=== PATIENT | male | born 1975 ===

== ENCOUNTER 2016-08-28 06:01 | Inpatient (IN) | payer MEDICAID ==
[2016-08-19 07:57] VITALS: BMI 31.3
--- NOTE | 2016-08-28 06:39 | CP.SDSHP ---
Same Day Surgery H & P - History Proposed Procedure: Left total ankle replacement Pre-Op Diagnosis: left ankle post traumatic arthritis - Allergies Allergies: Allergies No Known Allergies Allergy (Verified 06/26/15 17:58) - {Optional Preform as Required} Integument: WNL - Impression Impression: Pt was seen and examined in SDS. Pt NPO status was confirmed. All Pre-op testing and clearance was in the chart. Pt has exhausted all conservative treatment at this time and is opting for surgical intervention. Pt was explained procedure and post-operative course. All pt's questions were answered to satisfaction. No guarantees were made. Pt understands all risks, benefits and complications of procedure. Pt will follow-up with Dr. Liu Short Stay Discharge - Short Stay Discharge Admitting Diagnosis/Reason for Visit: M19.172 M25.572 Disposition: HOME/ ROUTINE Referrals: Yakelin Shea MD [Primary Care Provider] -
--- NOTE | 2016-08-28 06:41 | CP.PCM.PN ---
Subjective - Date & Time of Evaluation Date of Evaluation: 08/28/16 Time of Evaluation: 06:39 - Subjective Subjective: 41 y/o male seen in [facility] for pre operative evaluation of left ankle. Patient going to surgery this morning with Dr. Liu for left total ankle replacement. Patient states that he has not eaten or drank anything since 10pm last night. Paitent denies any acute events overnight. He denies n/f/v/d/c/sob. Pmhx: anxiety,depression, HIV, HTN, epilepsy pshx: left ankle sx, appendectomy SH: denies All: NKDA Objective - Vital Signs/Intake and Output Vital Signs (last 24 hours): Temp Pulse Resp BP Pulse Ox 97.8 F 74 18 110/70 08/19/16 10:32 08/19/16 10:32 08/19/16 10:32 08/19/16 10:32 - Constitutional Appears: Well, Non-toxic, No Acute Distress - Neurological Exam Neurological Exam: Alert, Awake, Oriented x3 - Psychiatric Exam Psychiatric exam: Normal Affect, Normal Mood Assessment and Plan - Assessment and Plan (Free Text) Assessment: 41 y/o male seen at bedside in [facility] going to OR for left total ankle replacement by Dr. Liu Plan: Pt was seen and examined in [facility] Pt NPO status was confirmed All Pre-op testing and clearance was in the chart Pt has exhausted all conservative treatment at this time and is opting for surgical intervention Pt was explained procedure and post-operative course All pt's questions were answered to satisfaction No guarantees were made Pt understands all risks, benefits and complications of procedure Pt will follow-up with Dr. Liu in clinic
[2016-08-28] MEDS ORDERED: ceFAZolin 1 GM in Sodium Chloride 0.9% 100 ML IVPB ONE (07:00)
[2016-08-28] MEDS ORDERED: Bupivacaine 0.5% Inj(30mL) IJ ONE (07:00)
[2016-08-28] MEDS ORDERED: Lactated Ringer's 1,000 ML IV ONE ×6 (07:03→13:00)
[2016-08-28] MEDS ORDERED: Lidocaine 1% Inj (20ml) ONE ×2 (07:15→20:05)
[2016-08-28] MEDS ORDERED: MethylPREDNISolone Depo 40 mg/ml Inj ONE (07:15)
[2016-08-28] MEDS ORDERED: Bacitracin Ointment 30 GM TUBE ONE (07:15)
[2016-08-28] MEDS ORDERED: Absorbable Gelatin Sponge Size 100 ONE (07:16)
[2016-08-28] MEDS ORDERED: Thrombin Topical 5,000 IU Spray Kit ONE (07:16)
[2016-08-28] MEDS ORDERED: Propofol 10 mg/ml Inj (20 ML) ONE (07:26)
[2016-08-28] MEDS ORDERED: Rocuronium 10 mg/ml (5 ml) ONE (07:27)
[2016-08-28] MEDS ORDERED: Midazolam 2 MG/2 ML VIAL ONE (07:27)
[2016-08-28] MEDS ORDERED: Succinylcholine 200 mg/10 ml Inj IV ONE (07:27)
[2016-08-28] MEDS ORDERED: Neostigmine Methylsulfate 3mg/3ml Syringe IV ONE (07:27)
[2016-08-28] MEDS ORDERED: Sevoflurane - Inhalation Anesthetic Liq (250 ml) ONE (07:31)
[2016-08-28] MEDS ORDERED: Bupivacaine HCl 0.25% PF (30 ml) Inj ONE (11:50)
[2016-08-28] MEDS ORDERED: Bupivacaine HCl 0.5% PF (30 ml) Inj ONE (12:06)
[2016-08-28] MEDS ORDERED: Bupivacaine 0.25% Inj(30mL) IJ ONE (12:20)
[2016-08-28] MEDS: HYDROmorphone 0.5 mg/0.5 ml ISec IVP PRN ×5 (13:10→14:05)
[2016-08-28] MEDS ORDERED: HYDROmorphone 0.5 mg/0.5 ml ISec ONE ×2 (13:19→13:35)
[2016-08-28] MEDS ORDERED: Oxycodone/Acetaminophen 5/325 mg Tab PO PRN (13:33)
[2016-08-28] MEDS ORDERED: DiphenhydrAMINE 50 mg/ml Inj IVP PRN (13:52)
--- NOTE | 2016-08-28 14:19 | PCM.SURG1 ---
Surgeon's Initial Post Op Note - Surgeon's Notes Surgeon: Dr. Liu Enterprise Infrastructure Architect: Dr. Ariza, Dr. Clay, Dr. Chand Type of Anesthesia: General Endo Anesthesia Administered By: Dr. Ng Pre-Operative Diagnosis: left ankle post traumatic arthritis Operative Findings: see dictation Post-Operative Diagnosis: same Operation Performed: left total ankle arthroplasty Specimen/Specimens Removed: bone and soft tissue Estimated Blood Loss: EBL {In ML}: 50 Blood Products Given: N/A Drains Used: Kj Alves Post-Op Condition: Good Date of Surgery/Procedure: 08/28/16 Time of Surgery/Procedure: 08:30
--- NOTE | 2016-08-28 15:12 | RAD ---
PROCEDURE: Left Ankle Radiographs. HISTORY: s/p left TAR COMPARISON: Comparison is made to the previous study dated 12/04/2015 FINDINGS: BONES: Patient status post left ankle arthroplasty. Hardware are seen at the distal left tibia and at the talar dome. Again seen is cortical irregularity at the distal left fibula. JOINTS: Normal. No osteoarthritis. Ankle mortise maintained. Talar dome intact SOFT TISSUES: Normal. OTHER FINDINGS: None. IMPRESSION: Status post left ankle arthroplasty.
[2016-08-28 15:30] LABS: HEMATOCRIT 42.1 % (35.0-51.0)
--- NOTE | 2016-08-28 17:02 | RAD ---
PROCEDURE: Fluoroscopy up to 1 hr. HISTORY: TOTAL LEFT ANKLE REPLACEMENT COMPARISON: None. TECHNIQUE: Standard protocol for this study/examination. FINDINGS: Submitted images from the current procedure: 16. IMPRESSION: Total fluoroscopic time (continuous mode) utilized during the procedure: 236.9 seconds.
[2016-08-28] MEDS: ceFAZolin 1 GM in Sodium Chloride 0.9% 100 ML IVPB SCH (19:37)
[2016-08-28] MEDS ORDERED: Ropivacaine 0.5% 30ML IV ONE (20:05)
--- NOTE | 2016-08-28 21:03 | PCM.ANESB2 ---
Popliteal Nerve Block - Popliteal Nerve Block Date of Procedure: 08/28/16 Anesthesiologist: Jorge Pre-Procedure Diagnosis: s/p left ankle replacement Post-Procedure Diagnosis: same Procedure Performed: Popliteal Nerve Block Left - Procedure Popliteal Nerve Block: This procedure was explained to the patient that it is for post-operative pain management. Consent was obtained after a thorough discussion with the patient regarding the benefits and possible complications of local anesthetic block of the sciatic nerve at the popliteal level. The patient was brought to the operating room and standard monitors are applied. Time-out was held with the circulating nurse to confirm the correct surgery and the appropriate block. After applying oxygen by nasal cannula and administering IV Sedation, patient's operative leg was gently raised and supported and the groove in between the biceps femoris and vastus lateralis muscles was carefully palpated. The skin approximately 8cm above the popliteal crease was then marked. The ultrasound transducer was then applied to the posterior thigh approximately 8cm above the popliteal crease in the transverse plane and the sciatic nerve before its division was visualized lateral to the popliteal artery and in between the bicep femoris and semimembranosus/semitendinosus muscles. After identification, the lateral portion of the thigh was prepped with Betadine solution three times and Lidocaine 1% was injected subcutaneously for topical anesthesia. At this point, a # 21 gauge Stimuplex insulated 4 inch needle was inserted into pre-marked area and advanced in a perpendicular direction. The needle was inserted above the ultrasound transducer in-plane towards the sciatic nerve in a [id number] direction. Needle advancement was performed carefully under direct ultrasound visualization. Nerve stimulator was used and dorsiflexion of the _left____ foot was elicited at a current of __0.3___ MA. After repeated negative aspiration, __5___cc of __0.5___ % ___Ropivacaine was injected and this was flowed with ___15___ cc of __0.5____% __Ropivacaine ___. Under ultrasound guidance the local anesthetics were observed tenting the epidural sheath and surrounding the roots of the sciatic nerve. The needle was removed intact and sterile dressing was applied. The patient tolerated the popliteal nerve block well with stable vital signs and was subsequently prepared for the surgery.
--- NOTE | 2016-08-28 21:08 | CP.PCM.CON ---
History of Present Illness - History of Present Illness History of Present Illness: Called by floor. Pt in extreme pain after total left ankle replacement. Pt had been offered popliteal block after surgery but had refused. Now in pain despite Dilaudid REAR ADMIRAL. Consulted Dr Beal, pain management. Pt is known to Dr Beal. Pt states he is on oxycodone 30mg PO TID. Dr Beal recommended adding Dilaudid 2mg IVP q3 prn pain in addition to REAR ADMIRAL. Also discussed with pt through slab off mill tender that nerve block would be best option. Pt agreed and consented. See Popliteal Block note. Pt noticeably better after block. Past Patient History - Infectious Disease Hx of Infectious Diseases: None - Past Medical History & Family History Past Medical History?: Yes - Past Social History Smoking Status: Never Smoked - CARDIAC Hx Cardiac Disorders: Yes Hx Congestive Heart Failure: Yes Hx Hypertension: Yes - PULMONARY Hx Respiratory Disorders: Yes Hx Asthma: Yes - NEUROLOGICAL Hx Neurological Disorder: Yes Hx Dementia: Yes Hx Dizziness: Yes Hx Seizures: Yes (EPILEPSY) - HEENT Hx HEENT Problems: No - RENAL Hx Chronic Kidney Disease: No - ENDOCRINE/METABOLIC Hx Endocrine Disorders: No - HEMATOLOGICAL/ONCOLOGICAL Hx Blood Disorders: Yes Hx AIDS: Yes Hx Human Immunodeficiency Virus (HIV): Yes - INTEGUMENTARY Hx Dermatological Problems: No - MUSCULOSKELETAL/RHEUMATOLOGICAL Hx Musculoskeletal Disorders: Yes Hx Arthritis: Yes Hx Back Pain: Yes Hx Falls: Yes Hx Fractures: Yes Hx Osteoporosis: Yes Hx Rhabdomyolysis: Yes Hx Unsteady Gait: Yes Other/Comment: LIMIT JOINT MOTION - GASTROINTESTINAL Hx Gastrointestinal Disorders: No Hx Gastroesophageal Reflux: Yes - GENITOURINARY/GYNECOLOGICAL Hx Genitourinary Disorders: No - PSYCHIATRIC Hx Psychophysiologic Disorder: Yes Hx Anxiety: Yes Hx Bipolar Disorder: Yes Hx Depression: Yes Hx Panic Symptoms: Yes Hx Schizophrenia: Yes Hx Substance Use: No Other/Comment: OVERDOSE - SURGICAL HISTORY Hx Surgeries: Yes Hx Appendectomy: Yes Hx Musculoskeletal Surgery: Yes (BUNIONECTOMY LEFT X3) Hx Orthopedic Surgery: Yes (LEFT LEG) Other/Comment: left foot with metal implant - ANESTHESIA Hx Anesthesia: Yes Hx Anesthesia Reactions: No Hx Malignant Hyperthermia: No Has any member of the family had a problem w/ anesthesia?: No Meds Allergies/Adverse Reactions: Allergies Allergy/AdvReac Type Severity Reaction Status Date / Time No Known Allergies Allergy Verified 06/26/15 17:58 - Medications Medications: Current Medications Acetaminophen (Tylenol 325mg Tab) 650 mg PO Q4 PRN PRN Reason: Pain, Mild (1-3) or temp>101.5 Enoxaparin Sodium (Lovenox) 40 mg SC DAILY [facility] PRN Reason: Protocol Home Med (Emtricita/Rilpivir/Tenofovir) 1 tab PO DAILY [facility] Hydrochlorothiazide (Microzide) 12.5 mg PO DAILY [facility] Hydromorphone HCl (Dilaudid) 2 mg IVP Q4 PRN PRN Reason: severe breakthrough pain Last Admin: 08/28/16 20:21 Dose: 2 mg Hydromorphone HCl (Dilaudid) 0.5 mg IVP Q5MIN PRN PRN Reason: Pain, severe (8-10) Last Admin: 08/28/16 13:30 Dose: 0.5 mg Hydromorphone HCl (Dilaudid) 0.5 mg IVP Q15MIN PRN PRN Reason: Pain, moderate (4-7) Last Admin: 08/28/16 14:55 Dose: 0.5 mg Hydromorphone HCl (Dilaudid 0.2 Mg/Ml Grinder Mill Operator) 6 mg IV Q6 [facility] PRN Reason: Protocol Last Admin: 08/28/16 14:45 Dose: 0.3 mg Hydromorphone HCl (Dilaudid) 2 mg IVP Q3 PRN PRN Reason: Pain, severe (8-10) Stop: 08/31/16 23:59 Sodium Chloride (Sodium Chloride 0.9%) 500 mls @ 130 mls/hr IV .Q3H51M [facility] Cefazolin Sodium 1 gm/ Sodium (Chloride) 100 mls @ 100 mls/hr IVPB Q8 [facility] Last Admin: 08/28/16 19:37 Dose: 100 mls/hr Levetiracetam (Keppra) 1,000 mg PO BID [facility] Mirtazapine (Remeron) 30 mg PO HS [facility] Oxycodone/Acetaminophen (Percocet 5/325 Mg Tab) 1 tab PO Q4 PRN PRN Reason: Pain, moderate (4-7) Stop: 08/31/16 13:34 Oxycodone/Acetaminophen (Percocet 5/325 Mg Tab) 2 tab PO Q4 PRN PRN Reason: Pain, severe (8-10) Stop: 08/31/16 13:34 Pregabalin (Lyrica) 50 mg PO DAILY [facility] Risperidone (Risperdal Tab) 2 mg PO HS [facility] Fluticasone/Salmeterol (Advair Diskus 250/50) 1 puff IH Q12H [facility] Senna/Docusate Sodium (Senokot S 50 Mg-8.6 Mg) 1 tab PO HS [facility] Valsartan (Diovan) 160 mg PO DAILY [facility] Results - Vital Signs Recent Vital Signs: Last Vital Signs Temp 98.2 F 08/28/16 19:00 Pulse 100 H 08/28/16 19:00 Resp 18 08/28/16 19:00 BP 130/70 08/28/16 19:00 Pulse Ox 98 08/28/16 19:00 - Labs Result Diagrams: 08/28/16 15:15 Labs: Laboratory Results - last 24 hr 08/28/16 15:15 Hgb 13.6 Hct 42.1
[2016-08-28] MEDS ORDERED: Docusate-Senna 50 mg-8.6 mg Tab PO SCH (22:00)
[2016-08-28] MEDS: Fluticasone-Salmeterol 250-50mcg Diskus IH SCH (22:21)
[2016-08-28] MEDS: Sodium Chloride 0.9% 500 ML IV SCH (22:25)
--- NOTE | 2016-08-28 23:19 | CP.PCM.HP ---
History of Present Illness - History of Present Illness History of Present Illness: CC/HPI: Pt. is a 41 y.o. male with history of chronic left foot & ankle pain s/ p Left ankle arthroplasty post-op day#0. Surgery performed by Podiatry Dr. Liu. Pt. seen and evaluated on med-surge unit complaining of extreme pain in his left leg despite being on a Morphine AIRCRAFT DISPATCHER pump. Pt. also reports has pain in his abdomen but denies any nausea, vomiting, fever, or chills. Pt. also states does not remember the last time he had a bowel movement and just wants this pain to go away. Pt. was offered a popliteal block while in the post- anesthesia care unit. ROS: Pt. denies any headache, chest pain, nausea, vomiting, back pain, or palpitations. PMHx: HTN, HIV, Poly-substance abuse, Seizure disorder, Mood disorder, Asthma PSHx: Multiple left foot and ankle surgeries, Appendectomy Social: At this time denies TOB, ETOH, or Drug use Allergies: NKDA Home Meds: See Med List PMD: Dr. Yakelin Shea Podiatry: Dr. Liu RX: [facility] Present on Admission - Present on Admission Any Indicators Present on Admission: No History of DVT/PE: No History of Uncontrolled Diabetes: No Urinary Catheter: No Decubitus Ulcer Present: No Review of Systems - Review of Systems Review of Systems: See HPI Past Patient History - Infectious Disease Hx of Infectious Diseases: None - Past Medical History & Family History Past Medical History?: Yes - Past Social History Smoking Status: Never Smoked - CARDIAC Hx Cardiac Disorders: Yes Hx Congestive Heart Failure: Yes Hx Hypertension: Yes - PULMONARY Hx Respiratory Disorders: Yes Hx Asthma: Yes - NEUROLOGICAL Hx Neurological Disorder: Yes Hx Dementia: Yes Hx Dizziness: Yes Hx Seizures: Yes (EPILEPSY) - HEENT Hx HEENT Problems: No - RENAL Hx Chronic Kidney Disease: No - ENDOCRINE/METABOLIC Hx Endocrine Disorders: No - HEMATOLOGICAL/ONCOLOGICAL Hx Blood Disorders: Yes Hx AIDS: Yes Hx Human Immunodeficiency Virus (HIV): Yes - INTEGUMENTARY Hx Dermatological Problems: No - MUSCULOSKELETAL/RHEUMATOLOGICAL Hx Musculoskeletal Disorders: Yes Hx Arthritis: Yes Hx Back Pain: Yes Hx Falls: Yes Hx Fractures: Yes Hx Osteoporosis: Yes Hx Rhabdomyolysis: Yes Hx Unsteady Gait: Yes Other/Comment: LIMIT JOINT MOTION - GASTROINTESTINAL Hx Gastrointestinal Disorders: No Hx Gastroesophageal Reflux: Yes - GENITOURINARY/GYNECOLOGICAL Hx Genitourinary Disorders: No - PSYCHIATRIC Hx Psychophysiologic Disorder: Yes Hx Anxiety: Yes Hx Bipolar Disorder: Yes Hx Depression: Yes Hx Panic Symptoms: Yes Hx Schizophrenia: Yes Hx Substance Use: No Other/Comment: OVERDOSE - SURGICAL HISTORY Hx Surgeries: Yes Hx Appendectomy: Yes Hx Musculoskeletal Surgery: Yes (BUNIONECTOMY LEFT X3) Hx Orthopedic Surgery: Yes (LEFT LEG) Other/Comment: left foot with metal implant - ANESTHESIA Hx Anesthesia: Yes Hx Anesthesia Reactions: No Hx Malignant Hyperthermia: No Has any member of the family had a problem w/ anesthesia?: No Meds Allergies/Adverse Reactions: Allergies Allergy/AdvReac Type Severity Reaction Status Date / Time No Known Allergies Allergy Verified 06/26/15 17:58 Physical Exam - Constitutional Appears: In Acute Distress Additional comments: Moaning and Groaning stating he is in severe pain and needs something to be done - Head Exam Head Exam: ATRAUMATIC, NORMOCEPHALIC - Eye Exam Eye Exam: Normal appearance Pupil Exam: PERRL - Respiratory Exam Respiratory Exam: Clear to Auscultation Bilateral, NORMAL BREATHING PATTERN - Cardiovascular Exam Cardiovascular Exam: Tachycardia, REGULAR RHYTHM. absent: Systolic Murmur - GI/Abdominal Exam GI & Abdominal Exam: Hyperactive Bowel Sounds, Soft. absent: Tenderness - Extremities Exam Additional comments: Left ankle Cast in place, Kj Prat drain in place with sanguinous drainage noted, Pt. able to move his toes - Neurological Exam Neurological exam: Alert, Oriented x3 Results - Vital Signs Recent Vital Signs: Last Vital Signs Temp 98.2 F 08/28/16 19:00 Pulse 100 H 08/28/16 19:00 Resp 18 08/28/16 19:00 BP 130/70 08/28/16 19:00 Pulse Ox 98 08/28/16 19:00 - Labs Result Diagrams: 08/28/16 15:15 Labs: Laboratory Results - last 24 hr 08/28/16 15:15 Hgb 13.6 Hct 42.1 Assessment & Plan - Assessment and Plan (Free Text) Assessment: 41 y.o. male with history of poly-substance abuse, HIV, and chronic left foot ankle pain s/p Left ankle total replacement POD#0 with intractable pain Left ankle total replacement POD#0 1- Pain management consulted Anesthesia Dr. Tye Patel 2- Pt. consented for Left lower limb popliteal block with Dr. Patel, procedure completed without complication + Dilaudid 2mg IVP Q3 PRN severe pain + Morphine 4mg IVP Q4 PRN for Moderate pain 3- Wean patient off patient controlled anesthesia and transition to PO Percocet 5/325 1tab for moderate pain & Percocet 5/325 2tab for severe pain 4- Ancef 1gram Q8 5- Physical therapy evaluate and treat 6- Post-OP CBC and BMP in the a.m. Constipation of unclear etiology most likely secondary to opioids 1- Flat plat abdomen ordered consistent with severe constipation- official reading pending 2- Senokot 2 tabs QHS 3- Simethicone 80mg PO TID PRN 4- Consider Fleet enema HTN 1- Resume Valsartan 160mg Daily 2- Resume HCTHZ 12.5mg Daily Asthma 1- Advair 1 puff q12 Seizure disorder 1- Resume Keppra 1000mg Q12 HIV 1- Resume Complera 200-25-300 Daily Mood disorder 1- Resume Risperdal 2mg qhs 2- Resume Remeron 30mg qhs DVT prophylaxis 1- SCD 2- Lovenox 40mg sc daily Diet 1- Regular
[2016-08-29] MEDS: Simethicone 80 mg Chewtab PO PRN (01:24)
[2016-08-29] MEDS: ceFAZolin 1 GM in Sodium Chloride 0.9% 100 ML IVPB SCH ×3 (01:58→16:41)
[2016-08-29] MEDS: Sodium Chloride 0.9% 500 ML IV SCH ×2 (04:58→06:50)
[2016-08-29] MEDS: Fluticasone-Salmeterol 250-50mcg Diskus IH SCH ×2 (06:49→18:35)
[2016-08-29] MEDS ORDERED: Patient's Own Med (Valsartan/Hydrochlorothiazide [Valsartan-Hctz 160-12.5 Mg Tab] 1 TAB) PO SCH (09:00)
--- NOTE | 2016-08-29 09:46 | OP ---
PROCEDURE DATE: 08/28/2016 SURGEON: Denys Liu DPM. BEER STILL RUNNER COMPOUNDER: 1. Dr. Rock Ariza, ALEC, PGY3. 2. Dr. Jenniffer Clay, ALEC, PGY3. 3. Dr. Yajaira Chand, ALEC, PGY3. TELETRAY OPERATOR: Dr. Hernandez MD. PREOPERATIVE DIAGNOSIS: Left ankle end-stage posttraumatic arthritis. POSTOPERATIVE DIAGNOSIS: Left ankle end-stage posttraumatic arthritis. PROCEDURE: Left ankle total ankle arthroplasty with Snapstream Infinity total ankle joint implant. INDICATIONS: This is a 41-year-old male with the aforementioned diagnosis. The patient at this time has exhausted conservative treatment options and he now opts and requests for surgical intervention. The patient signed the consent form after careful explanation of all risks, benefits, complications, and alternatives to the surgical procedure. There were no guarantees that were made, given or implied. The patient is a well-known patient of the podiatry clinic and he has been thoroughly educated on the risks, benefits and alternatives including not performing surgery. The patient has been thoroughly explained the risks, benefits and complications of both total ankle arthroplasty and ankle arthrodesis, again including the option of not performing surgery. The patient at this time has opted for a total ankle arthroplasty and has been well aware via thorough and detailed explanation that total ankle arthroplasty is a procedure that will require revisional surgery at least in the form of poly insert or poly replacement surgery. Again, the patient was read the consent form via a ticket printer and tagger. The patient signed the consent form with a thorough understanding of the above mentioned. PREPARATION: The patient was brought into the operating room, placed on the operating room table in the supine position. A well-padded pneumatic thigh tourniquet was placed on the patient's left thigh at the upper one-third thigh level. After induction of general anesthesia, the left foot, ankle and lower leg were then prepped and draped in the usual sterile manner. A timeout was performed. An Esmarch bandage was utilized to exsanguinate the left foot, ankle and lower leg. The pneumatic thigh tourniquet was then inflated to 350 mmHg and then the procedure began. DESCRIPTION OF PROCEDURE: Our attention now directed to the anterior aspect of the patient's left ankle where the tendons of the tibialis anterior, extensor hallucis longus and extensor digitorum longus were mapped out with the surgical marking pen. Next, an approximately 20 cm incision was made in between the extensor hallucis longus and extensor digitorum longus starting approximately 10 cm superior to the ankle joint and ending distally at approximately the level of the talonavicular joint. The incision was deepened through the subcutaneous tissue utilizing a combination of shunt and blunt dissection. Care was taken to identify and retract all vital neurovascular structures and cauterize and/or ligate all bleeders as deemed necessary. The incision was deepened down through the subcutaneous layers down to the level of the periosteum of the anterior tibia and anterior and dorsal talus. Once that level was encountered, a sharp #15 blade was utilized to make a periosteal incision. Next, utilizing a Parry elevator, the periosteal tissues were then carefully free from their osseous attachments, both medially and laterally revealing the ankle joint and adjacent osseous structures into the operative field. During the course of dissection, various loose osteophytes which were previously identified in appendix 3 of the patient's surgical alignment report provided by [facility] were encountered and removed. During the course of our dissection, careful attention was paid to the dorsal talar neck which was previously identified in appendix 2 of the surgical alignment report as an area of low bone quality. This area was inspected and inspection revealed it would not interfere with the surgical instrumentation for this procedure. During the course of our soft tissue dissection, 2 metallic markers which were cut from a 2.4 mm Steinmann pin were placed vertically within the Prophecy tibial alignment guide. After adequate osseous exposure of the ankle joint and the adjacent osseous structures, the Prophecy tibial alignment guide was placed in the appropriate position over the anterior aspect of the distal tibia. Once the guide was in its proper location, a 2.4 mm Steinmann pin was inserted into the medial proximal hole of the guide to serve as temporary fixation. Next, an additional Steinmann pin was now placed through the vertical hole in the center of the handle of the guide which serves as the coronal alignment cue. Next, using intraoperative fluoroscopy, an AP fluoro image was taken to confirm that the tibial guide was in the correct orientation and in proper alignment with the long axis of the tibia. Next, the remaining 3 anterior to posterior holes within the tibial alignment guide were now filled with 2.4 mm Steinmann pins. All anterior to posterior pins through this guide were driven bicortical through the tibia. Next, the tibial alignment guide was gently slid up and off the Steinmann pins and placed on the back table. The now four bicortical pins within the distal tibia remained in place. Next, the size #5 coronal sizing guide was now placed and slid down over the distal 2 tibial pins. The coronal sizing guide was brought flush to the surface of the tibia. Next, the Herot[employer] Conversion instrument was now slid over the 2 proximal tibial pins and into the dovetail of the coronal sizing guide. They were then locked in place with the hex screwdriver. Next, with the use of the fluoroscope, an AP image was taken to fluoroscopically verify the size and orientation of the coronal sizing guide. The correct "[id number]" feature was identified within the coronal sizing guide on the AP fluoroscopic image. Next, lateral fluoroscopic images were taken to confirm proper orientation of the coronal guide in the lateral view. Next, the tibial corner drill was now brought into the operative field and through the coronal sizing guide, the superior medial and superior lateral corners of the tibia were bicortically drilled. Next, the drill and coronal sizing guide were removed and a size #5 tibial resection guide was slid over the distal Steinmann pins which were in the tibia. An additional Steinmann pin was now inserted into the medial divergent pin hole within the tibial resection guide. Next, utilizing the pin cutter, the pins were trimmed flush to the resection guide, but still leaving enough room for the pins to later be removed with either the jewel cupping machine operator or the wire armored car guard and driver. Next, the appropriate size saw blade was now brought into the operative field to make the tibial resection. The resections were now performed at that time to the proximal, medial and lateral slots of the tibial resection guide. It is of note that the talar cuts were not made at this time. Next, the divergent Steinmann pin was removed and the resection guide and the distal tibial Steinmann pins were removed. Next, at an approximately 60 degree angle, an osteotome was now utilized to cut downwards towards the talus through the resected piece of the bone to remove the anterior section of the resected tibia. We removed as much of the resected portion of the tibia as possible at this time without violating the medial and lateral gutters. The posterior resected portion of the tibia will be removed at a later time. The surgical field was now irrigated with a copious amount of normal sterile saline solution. Next, the foot was now placed into slight plantarflexion in order to achieve maximum exposure of the talar dome. The articular surface of the talar dome was now inspected and noted to be thin, friable and denuded. In order to achieve proper seating of the talus alignment guide, the articular cartilage from the anterior aspect of the talar dome was removed with a curette. Next, first while using the provided bone models as a tactile and visual confirmation, the talus alignment guide was then placed into the appropriate position on the superior and anterior surface of the talus. Position was then confirmed via review of the surgical alignment report and with the use of the provided bone models. Next, while holding the talus alignment guide firmly in place, one 2.4 mm Steinmann pin was driven through the medial hole on the top surface of the guide into the dome of the talus to serve as temporary fixation. Next, 2 additional pins were now installed from anterior to posterior through the talus alignment guide into the talar dome. The previously placed pin on the top of the guide was then removed. With the pins securely held in place, the talus alignment guide was carefully slid up and off the pins, leaving the pins in place. Next, position was now confirmed with the lateral view with the fluoroscope. Next, a size #4 Infinity talus resection guide was now appropriately placed over the 2 talar pins and slid down flush to the anterior and dorsal surface of the talar dome. Two additional 2.4 mm Steinmann pins were now inserted into the medial and then the lateral gutter to serve as protection for the malleoli. The pin cutter was now used to cut the Steinmann pins close and near flush to the surface of the Infinity resection guide. While using the appropriate size saw blade, the talar resection was now performed through the distal slot of the Infinity resection guide. After the resection was completed, the guide was removed and a small osteotome was now utilized to complete any non-resected portions from the resection of the talus. Next, at this time, the entire ankle joint and surgical field were irrigated with a copious amount of normal sterile saline solution. While utilizing a combination of the corner chisel, the bone removal screw, the ratchet handle and the posterior capsule release tool, any remaining resected pieces of bone within the now resected ankle joint were appropriately removed and sent as a pathologic specimen. It is of note that, while utilizing the corner chisel, the chisel was not utilized beyond the #5 laser lesli printed on the chisel. Next, the saw was now utilized to remove any excess pieces of bone while paying careful attention to follow any previously made cut lines within the bone. Next, at this time, the tourniquet had approached 120 minutes. A saline-soaked lap pad was now placed within the surgical field and the surgical field was then gently wrapped with a sterile Sharif wrap. The pneumatic thigh tourniquet was now deflated at 120 minutes. The tourniquet was deflated for a total of 15 minutes. Next, after 15 minutes of tourniquet deflation, the Esmarch bandage was utilized to gently exsanguinate the left foot , ankle and lower leg and then the tourniquet was now reinflated to 350 mmHg. Next, the #5 tibial tray trial was now placed over the 2 remaining tibial pins and inserted into the resected joint space. The padded lamina tube knitter was now utilized in order to seat the tibial tray trial flush to the bone and then it was fully seated against the anterior cortex of the distal tibia. Next, with the use of a lateral fluoroscopic image, sizing for the tibial component was completed and a #5 standard length tibial component was measured. Next, with the tibial tray trial piece firmly held in place, the Steinmann pins were cut flush to the surface of the tibial tray trial. Next, the posterior tibial peg broach was now inserted into the posterior opening of the tibial tray trial piece and malleted flush to the built-in stop. This broach was then left in place. The same was then repeated with the anterior tibial peg broach. The 2 anterior holes were prepared through the trial. After all 3 holes were broached , the broaches were removed and the tibial tray trial piece was left in place. Next, a #4 talar dome trial piece was now inserted into the appropriate position over the talar dome and the appropriate size poly insert trial was inserted into the tibial tray trial. Sizing and positioning of the trial pieces was now confirmed with an AP and lateral image of the ankle joint. Once the optimal position was attained, two 2.4 mm Steinmann pins were now placed through the talar dome trial piece to temporarily hold it in place. Next, all 3 trial pieces were now removed from the surgical field and placed on the back table. Next, the talar resection guide base was now placed appropriately over the talar Steinmann pins. Next, 2 temporary fixation screws were now placed in the posterior medial and posterior lateral aspects of the talar resection guide. These fixation screws were put in initially under power and then finished with the T-handle pin armored car guard and driver. Next, the saw blade was then utilized to make the posterior talar chamfer resection through the slot of the talar resection guide base. After that was completed, the 2 anterior pins within the talus were then removed. One of those pins was now utilized and placed through the anterior pin hole in the guide base to serve as additional temporary fixation. This pin was then cut flush to the surface of the guide base. Next, the anterior talar army helicopter pilot guide was now installed facing down onto the anterior face of the talar resection guide. Next, utilizing the appropriately sized talar reamer, a plunge cut was created through all 4 holes of the army helicopter pilot guide. It is of note that the reamer has a built-in stop which avoided over reaming. Next, the anterior talar army helicopter pilot guide was removed and then replaced with the anterior talar finish guide. The talar reamer was now utilized to perform the finishing cuts for the anterior talar cuts by sliding the reamer from side to side within the finishing guide. Special attention was paid to ensure that the shoulder of the reamer was flush against the guide during each reaming step. Next, the finishing guide was then removed and the army helicopter pilot guide was now brought back into the operative field, rotated 180 degrees and reinstalled back into the talar resection guide base. Reaming was then repeated in a similar fashion. First, the 4 plunge holes were created through the 4 holes of the army helicopter pilot guide. The army helicopter pilot guide was then replaced with the finishing guide in the same rotated orientation and the reaming was completed by sliding the reamer from side to side within the finishing guide. Next, any guides and fixation pins were now removed from the surgical field. Next, the surgical field including the entire resected ankle joint was now thoroughly irrigated with 3 L of saline which contained gentamicin. Irrigation was performed with the pulse lavage system. Next, the tibial tray trial was placed back over the distal tibial pins. Next, the talar peg drill guide was now placed into the joint space and over the resected talus. The appropriate size poly insert trial was then replaced as well back in the surgical field. Next, the foot was then slightly plantarflexed and a 2.4 mm Steinmann pin was now placed through the talar peg drill guide to temporarily hold it in place. Next, after position was then confirmed visually and with fluoroscopy, the 4 mm anterior peg drill was now utilized to drill a hole through the medial and lateral openings of talar dome trial. Next, any remaining Steinmann pins in the talus and tibia were removed and all the trial guides were removed as well. Meanwhile, on the back table, bone cement was being prepared. An Infinity size 5 tibial tray was now sterilely passed onto the operative field and installed onto the tibial tray impaction insert device. Bone cement was now applied to the superior surface of the tibial tray component. Next, the insertion handle was now threaded into the tibial tray impaction insert and then the tibial tray component was installed into the distal tibia, ensuring that all 3 pegs of the components were aligned with the previously prepared and broached holes within the tibia. Next, to complete the seating of tibial tray, first the straight and then the offset tibial tray impacter were now utilized within both impaction notches located within the tibial tray impaction insert. Positioning and seating were confirmed with the use of Intraoperative fluoroscopy. Special attention was paid to ensure that the anterior surface of the tibial tray was in contact with the anterior tibial cortex. Next, the impaction insert for the tibial tray was removed and the tibial tray protector was then installed. Next , a size #4 Infinity talus implant was now sterilely passed onto the operative field. Bone cement was now applied to the undersurface of the talar implant. The talar implant was then carefully brought over to the operative field and inserted onto the talar dome with careful attention being paid to assure that the talar pegs aligned with the drilled holes within the talus. Next, the tibial tray protector was removed and the talar dome impactor was aligned with the tip of the sulcus of the talar dome. Now, with the ankle held in plantarflexion, the talar dome impactor was struck in order to complete the seating of the talar dome component. Next, fluoroscopic imaging was utilized to confirm appropriate seating of the tibia and the talar component. When position was deemed satisfactory, the poly rag production worker and poly insert guide rail were now appropriately assembled and the poly insert implant was now slid onto the poly insert guide rail. Next, prior to poly insert, the surgical field was irrigated with a copious amount of normal sterile saline solution. Next, the poly insert assembly was now slid over the attachment screws which were previously installed on the tibial tray. Two attachment nuts were now threaded over the end of each attachment screw to tightly secure the poly rag production worker in place. Next, while utilizing careful and fluid motion, the plunger was unlocked and engaged the poly insert implant. The poly insert implant was now implanted between the tibial and the talar components. In order to achieve final seating of the poly, the plunger was turned clockwise to further advance poly into the tibial tray. Once the plunger reached the maximum depth, the talar attachment nuts were unthreaded and the poly insert housing and attachment screws were removed from the tibial tray. The surgical site was irrigated with irrisept solution according to product guidelines. After that was completed, the surgical site was again irrigated with a copious amount of normal sterile saline solution. Next, a sterile Kj-Alves drain was now brought into the operative field. A small approximately 0.5 cm incision was made at the level of the anterior medial ankle in order to serve as an exit point for the drain. The Kj-Alves drain was now appropriately inserted subperiosteal within the surgical field. Next, the periosteal and subcutaneous tissue layers were now approximated with #2-0 Vicryl suture. Subcutaneous and retinacular tissues were now reapproximated with #3-0 Vicryl suture. Careful attention was paid again to avoid any vital neurovascular structures and cauterize any bleeders as necessary. Next, the subcuticular tissues were reapproximated with #4-0 Vicryl suture. Then, the skin was reapproximated with #3-0 nylon suture in an alternating simple interrupted and interrupted horizontal mattress fashion. After closure was complete, the patient then received a postoperative injection consisting of 10 mL of 0.25% Marcaine plain in the form of a saphenous nerve block. Simple interrupted sutures were now placed at the exit portal of the drain. Next, the entire foot, ankle, and lower leg were now cleansed and dried with wet and then dry sponges. Next, the surgical site was now dressed with Betadine Adaptic followed by dry sterile dressings followed by a layer of Kerlix. The tourniquet was then deflated and removed. Next, with the tubing of the Kj-Alves drain carefully placed on the anterior surface of the leg and a standard posterior splint was now applied to the left lower extremity with the ankle held at a 90 degree angle relative to the leg. Any excess tubing and the Kj-Alves drain were now pinned to the Sharif wrap of the posterior splint. Next, the patient received a popliteal nerve block from the anesthesia team. POSTOPERATIVE CONDITION: The patient tolerated the anesthesia and the procedure well and was escorted to the recovery room with his vital signs stable and his neurovascular status intact to the left foot, ankle, and lower leg as noted by instantaneous hyperemia to all 5 digits of the left foot. The patient will be nonweightbearing to the left lower extremity. The patient will be admitted postoperatively for 23-hour observation and discharged tomorrow. The patient will follow up the following week with Dr. Liu in the podiatry clinic at [facility]. Rock Ariza DPM Denys Liu DPM cc: [id number] TT: 08/29/2016 09:45:37 manny MTDDel
--- NOTE | 2016-08-29 10:09 | RAD ---
HISTORY: Abdomen Pain, Chronic Opioid Use, R/O Obstruction AP portable views of the abdomen performed. Study is limited due to large body habitus COMPARISON: No prior. FINDINGS: BOWEL: No evidence of acute mechanical bowel obstruction. There appears be a moderate amount of stool through the throughout the colon consistent with constipation. BONES: Normal. OTHER FINDINGS: None. IMPRESSION: Limited study due to large body habitus. Findings consistent with constipation. No evidence of acute mechanical bowel obstruction.
--- NOTE | 2016-08-29 10:32 | CP.PCM.PN ---
Subjective - Date & Time of Evaluation Date of Evaluation: 08/29/16 Time of Evaluation: 10:32 - Subjective Subjective: Patient is s/p Left ankle arthroplasty post-op day#1. Patient is seen and examined at bedside. Due to pain, Anesthesia consulted for popliteal block. Patient this morning requests PO medication. Patient complaining of 5/10 lower left extremity pain sharp constant exacerbated by movement. Patient also complaining of diffuse abdominal pain, and mild nausea. Patient states pain is cramping. No episodes of vomiting,fever, chills. Patient voiding with no difficulties. No current appetite, patient does not recall last bowel movement. Objective - Vital Signs/Intake and Output Vital Signs (last 24 hours): Temp Pulse Resp BP Pulse Ox 98.8 F 97 H 20 121/75 96 08/29/16 08:38 08/29/16 08:38 08/29/16 08:38 08/29/16 08:38 08/29/16 08:38 Intake and Output: 08/29/16 08/29/16 06:59 18:59 Intake Total 350 Output Total 350 Balance 0 - Medications Medications: Current Medications Acetaminophen (Tylenol 325mg Tab) 650 mg PO Q4 PRN PRN Reason: Pain, Mild (1-3) or temp>101.5 Enoxaparin Sodium (Lovenox) 40 mg SC DAILY [facility] PRN Reason: Protocol Home Med (Emtricita/Rilpivir/Tenofovir) 1 tab PO DAILY [facility] Hydrochlorothiazide (Microzide) 12.5 mg PO DAILY [facility] Last Admin: 08/29/16 09:04 Dose: 12.5 mg Hydromorphone HCl (Dilaudid) 2 mg IVP Q3 PRN PRN Reason: Pain, severe (8-10) Stop: 08/31/16 23:59 Last Admin: 08/29/16 04:45 Dose: 2 mg Sodium Chloride (Sodium Chloride 0.9%) 500 mls @ 130 mls/hr IV .Q3H51M [facility] Last Admin: 08/29/16 06:50 Dose: Not Given Cefazolin Sodium 1 gm/ Sodium (Chloride) 100 mls @ 100 mls/hr IVPB Q8 [facility] Last Admin: 08/29/16 09:01 Dose: 100 mls/hr Levetiracetam (Keppra) 1,000 mg PO BID [facility] Last Admin: 08/29/16 09:04 Dose: 1,000 mg Mirtazapine (Remeron) 30 mg PO [facility] Last Admin: 08/28/16 22:17 Dose: 30 mg Oxycodone/Acetaminophen (Percocet 5/325 Mg Tab) 1 tab PO Q4 PRN PRN Reason: Pain, moderate (4-7) Stop: 08/31/16 13:34 Oxycodone/Acetaminophen (Percocet 5/325 Mg Tab) 2 tab PO Q4 PRN PRN Reason: Pain, severe (8-10) Stop: 08/31/16 13:34 Pregabalin (Lyrica) 50 mg PO DAILY [facility] Last Admin: 08/29/16 09:11 Dose: 50 mg Risperidone (Risperdal Tab) 2 mg PO [facility] Last Admin: 08/28/16 22:17 Dose: 2 mg Fluticasone/Salmeterol (Advair Diskus 250/50) 1 puff IH Q12H [facility] Last Admin: 08/29/16 06:49 Dose: 1 puff Senna/Docusate Sodium (Senokot S 50 Mg-8.6 Mg) 2 tab PO [facility] Simethicone (Mylicon Chew Tab) 80 mg PO TID PRN PRN Reason: Flatulence Last Admin: 08/29/16 01:24 Dose: 80 mg Sodium Phosphate (Fleet Enema) 135 ml LA ONCE ONE Stop: 08/29/16 10:32 Valsartan (Diovan) 160 mg PO DAILY [facility] Last Admin: 08/29/16 09:03 Dose: 160 mg - Labs Labs: 08/28/16 15:15 - Constitutional Appears: In Acute Distress - Eye Exam Eye Exam: EOMI Pupil Exam: PERRL - ENT Exam ENT Exam: Mucous Membranes Moist - Neck Exam Neck Exam: Full ROM - Respiratory Exam Respiratory Exam: Clear to Ausculation Bilateral, NORMAL BREATHING PATTERN - Cardiovascular Exam Cardiovascular Exam: +S1, +S2 - GI/Abdominal Exam GI & Abdominal Exam: Soft, Normal Bowel Sounds - Extremities Exam Extremities Exam: Calf Tenderness Additional comments: left lower extremity: Left ankle Cast in place, Kj Alves drain in place with sanguinous drainage noted, Pt. able to move his toes - Back Exam Back Exam: absent: CVA tenderness (L), CVA tenderness (R) - Neurological Exam Neurological Exam: Alert, Awake - Psychiatric Exam Psychiatric exam: Normal Affect, Normal Mood Assessment and Plan - Assessment and Plan (Free Text) Assessment: 41 y.o. male with history of poly-substance abuse, HIV, and chronic left foot ankle pain s/p Left ankle total replacement POD#0 with intractable pain Left ankle total replacement POD#1 -Pain management consulted Anesthesia Dr. Tye Patel s/p Left lower limb popliteal block with Dr. Patel, procedure completed without complication + Dilaudid 2mg IVP Q3 PRN severe pain and PO Percocet 5/325 1tab for moderate pain & Percocet 5/325 2tab for severe pain started -Ancef 1gram Q8 -pending PT eval and treat -Post-OP CBC and BMP stable Constipation of unclear etiology most likely secondary to opioids 1- Flat plat abdomen ordered consistent with severe constipation-no bowel obstruction 2- Senokot 2 tabs QHS 3- Simethicone 80mg PO TID PRN 4- Fleet enema HTN 1- Resume Valsartan 160mg Daily 2- Resume HCTHZ 12.5mg Daily Asthma 1- Advair 1 puff q12 Seizure disorder 1- Resume Keppra 1000mg Q12 HIV 1- Resume Complera 200-25-300 Daily Mood disorder 1- Resume Risperdal 2mg qhs 2- Resume Remeron 30mg qhs DVT prophylaxis 1- SCD 2- Lovenox 40mg sc daily Diet 1- Regular
[2016-08-29] MEDS: Oxycodone/Acetaminophen 5/325 mg Tab PO PRN ×2 (10:52→21:04)
[2016-08-29 11:41] LABS: HEMATOCRIT 36.4 % (35.0-51.0); MEAN CELL VOLUME 86.4 fl (80.0-94.0); MEAN CORPUSCULAR HEMOGLOBIN 29.2 pg (27.0-31.0); MEAN CORPUSCULAR HGB CONC 33.8 g/dL (33.0-37.0); RED CELL DISTRIBUTION WIDTH 13.1 % (11.5-14.5); WHITE BLOOD COUNT 9.9 K/uL (4.8-10.8)
[2016-08-29 11:53] LABS: ALB/GLOB RATIO 1.4 (1.0-2.1); ALKALINE PHOSPHATASE 119 U/L (38-126); ALT/SGPT 69 U/L (21-72); AST/SGOT 67 U/L (17-59); BILIRUBIN,TOTAL 1.2 mg/dl (0.2-1.3); BLOOD UREA NITROGEN 12 mg/dl (9-20); CALCIUM 8.7 mg/dL (8.4-10.2); CARBON DIOXIDE 23 mmol/L (22-30); CHLORIDE 103 mmol/L (98-107); GFR AFRICAN-AMERICAN > 60; GLUCOSE,RANDOM 112 mg/dL (75-110); POTASSIUM 3.1 MMOL/L (3.6-5.0); SODIUM 139 mmol/l (132-148); TOTAL PROTEIN 6.9 G/DL (6.3-8.2)
--- NOTE | 2016-08-29 15:52 | CP.PCM.PN ---
Subjective - Date & Time of Evaluation Date of Evaluation: 08/29/16 Time of Evaluation: 11:50 - Subjective Subjective: 41 y/o male patient 1 day s/p Left Total Ankle Replacement was seen bedside today. Patient was resting comfortably in bed, tolerating pain. Patient denies any acute events overnight. Dressing to Left lower extremity was clean dry and intact. He denies n/f/v/d/c/sob. Objective - Vital Signs/Intake and Output Vital Signs (last 24 hours): Temp Pulse Resp BP Pulse Ox 98.8 F 94 H 20 121/75 95 08/29/16 08:38 08/29/16 13:07 08/29/16 08:38 08/29/16 08:38 08/29/16 13:07 Intake and Output: 08/29/16 08/29/16 06:59 18:59 Intake Total 350 Output Total 350 Balance 0 - Medications Medications: Current Medications Acetaminophen (Tylenol 325mg Tab) 650 mg PO Q4 PRN PRN Reason: Pain, Mild (1-3) or temp>101.5 Enoxaparin Sodium (Lovenox) 40 mg SC DAILY [facility] PRN Reason: Protocol Home Med (Emtricita/Rilpivir/Tenofovir) 1 tab PO DAILY [facility] Hydrochlorothiazide (Microzide) 12.5 mg PO DAILY [facility] Last Admin: 08/29/16 09:04 Dose: 12.5 mg Hydromorphone HCl (Dilaudid) 2 mg IVP Q3 PRN PRN Reason: Pain, severe (8-10) Stop: 08/31/16 23:59 Last Admin: 08/29/16 14:16 Dose: 2 mg Sodium Chloride (Sodium Chloride 0.9%) 500 mls @ 130 mls/hr IV .Q3H51M [facility] Last Admin: 08/29/16 06:50 Dose: Not Given Cefazolin Sodium 1 gm/ Sodium (Chloride) 100 mls @ 100 mls/hr IVPB Q8 [facility] Last Admin: 08/29/16 09:01 Dose: 100 mls/hr Levetiracetam (Keppra) 1,000 mg PO BID [facility] Last Admin: 08/29/16 09:04 Dose: 1,000 mg Mirtazapine (Remeron) 30 mg PO HS [facility] Last Admin: 06/16/17 22:17 Dose: 30 mg Oxycodone/Acetaminophen (Percocet 5/325 Mg Tab) 1 tab PO Q4 PRN PRN Reason: Pain, moderate (4-7) Stop: 08/31/16 13:34 Oxycodone/Acetaminophen (Percocet 5/325 Mg Tab) 2 tab PO Q4 PRN PRN Reason: Pain, severe (8-10) Stop: 08/31/16 13:34 Last Admin: 08/29/16 10:52 Dose: 2 tab Pregabalin (Lyrica) 50 mg PO DAILY [facility] Last Admin: 08/29/16 09:11 Dose: 50 mg Risperidone (Risperdal Tab) 2 mg PO HS [facility] Last Admin: 08/28/16 22:17 Dose: 2 mg Fluticasone/Salmeterol (Advair Diskus 250/50) 1 puff IH Q12H [facility] Last Admin: 08/29/16 06:49 Dose: 1 puff Senna/Docusate Sodium (Senokot S 50 Mg-8.6 Mg) 2 tab PO HS [facility] Simethicone (Mylicon Chew Tab) 80 mg PO TID PRN PRN Reason: Flatulence Last Admin: 08/29/16 01:24 Dose: 80 mg Valsartan (Diovan) 160 mg PO DAILY [facility] Last Admin: 08/29/16 09:03 Dose: 160 mg - Labs Labs: 08/29/16 11:34 08/29/16 11:34 - Constitutional Appears: Well, Non-toxic, No Acute Distress - Extremities Exam Additional comments: Left lower extremity exam DERM: Surgical site appears well coated with all tosin intact. no dehiscence. No drainage is noted. No erythema is noted. No sign consistent with acute infection is noted. No mal-odor noted. VASC: Palpable DP and PT noted bilaterally 2/4. [employer] less than 3 seconds noted to all digits - Neurological Exam Neurological Exam: Alert, Awake, Oriented x3 - Psychiatric Exam Psychiatric exam: Normal Affect, Normal Mood - Skin Skin Exam: Normal Color, Warm Assessment and Plan - Assessment and Plan (Free Text) Assessment: 41 y/o male 1 day s/p Left total ankle replacement by Dr. Liu Plan: Pt was seen and examined at bedside discussed with Dr. Liu labs and vitals reviewed; afebrile Dressing to Left lower extremity changed with posterior splint, Webril, PAWAN Drain to left ankle pulled out Patient tolerating pain Patient given Rx for pain medication and Lovenox to be c/d with. Rx in chart. Patient is stable from podiatry stand point.
[2016-08-29] MEDS: Enoxaparin 40 mg Syringe SC SCH (19:59)
[2016-08-29] MEDS ORDERED: Potassium Chloride 20 mEq ER Tab PO ONE (20:00)
[2016-08-29] MEDS: Docusate-Senna 50 mg-8.6 mg Tab PO SCH (21:06)
[2016-08-30] MEDS: ceFAZolin 1 GM in Sodium Chloride 0.9% 100 ML IVPB SCH ×3 (00:51→17:26)
[2016-08-30] MEDS: Fluticasone-Salmeterol 250-50mcg Diskus IH SCH ×2 (06:46→17:20)
[2016-08-30] MEDS ORDERED: Benzocaine/Menthol (Cepacol) Lozenge PO PRN (07:57)
[2016-08-30] MEDS: Enoxaparin 40 mg Syringe SC SCH (08:50)
--- NOTE | 2016-08-30 09:02 | CP.PCM.PN ---
Subjective - Date & Time of Evaluation Date of Evaluation: 08/30/16 Time of Evaluation: 07:00 - Subjective Subjective: Patient is s/p Left ankle arthroplasty post-op day#2. Patient is seen and examined at bedside.Patient this morning requests PO medication. Patient complaining of 5/10 lower left extremity pain sharp constant exacerbated by movement,controlled with PO medication. Patient also complaining of sore throat , no associated dysphagia,odynophagia, fever, chills, headache. Patient voiding with no difficulties. Minimal appetite. Last BM small yesterday when fleet enema was given. Objective - Vital Signs/Intake and Output Vital Signs (last 24 hours): Temp Pulse Resp BP Pulse Ox 98.8 F 110 H 18 148/90 94 L 08/30/16 08:17 08/30/16 08:17 08/30/16 08:17 08/30/16 08:17 08/30/16 08:17 Intake and Output: 08/30/16 08/30/16 06:59 18:59 Output Total 50 Balance -50 - Medications Medications: Current Medications Acetaminophen (Tylenol 325mg Tab) 650 mg PO Q4 PRN PRN Reason: Pain, Mild (1-3) or temp>101.5 Benzocaine/Menthol (Cepacol Sore Throat) 1 kenny PO Q2 PRN PRN Reason: Sore Throat Enoxaparin Sodium (Lovenox) 40 mg SC DAILY [facility] PRN Reason: Protocol Last Admin: 08/30/16 08:50 Dose: 40 mg Home Med (Emtricita/Rilpivir/Tenofovir) 1 tab PO DAILY [facility] Hydrochlorothiazide (Microzide) 12.5 mg PO DAILY [facility] Last Admin: 08/30/16 08:51 Dose: 12.5 mg Hydromorphone HCl (Dilaudid) 2 mg IVP Q3 PRN PRN Reason: Pain, severe (8-10) Stop: 08/31/16 23:59 Last Admin: 08/30/16 06:47 Dose: 2 mg Sodium Chloride (Sodium Chloride 0.9%) 500 mls @ 130 mls/hr IV .Q3H51M [facility] Last Admin: 08/29/16 06:50 Dose: Not Given Cefazolin Sodium 1 gm/ Sodium (Chloride) 100 mls @ 100 mls/hr IVPB Q8 [facility] Last Admin: 08/30/16 08:50 Dose: 100 mls/hr Levetiracetam (Keppra) 1,000 mg PO BID [facility] Last Admin: 08/30/16 08:51 Dose: 1,000 mg Mirtazapine (Remeron) [address] [facility] Last Admin: 08/29/16 21:05 Dose: 30 mg Oxycodone/Acetaminophen (Percocet 5/325 Mg Tab) 1 tab PO Q4 PRN PRN Reason: Pain, moderate (4-7) Stop: 08/31/16 13:34 Oxycodone/Acetaminophen (Percocet 5/325 Mg Tab) 2 tab PO Q4 PRN PRN Reason: Pain, severe (8-10) Stop: 08/31/16 13:34 Last Admin: 08/29/16 21:04 Dose: 2 tab Pregabalin (Lyrica) 50 mg PO DAILY [facility] Last Admin: 08/29/16 09:11 Dose: 50 mg Risperidone (Risperdal Tab) [address] [facility] Last Admin: 08/29/16 21:05 Dose: 2 mg Fluticasone/Salmeterol (Advair Diskus 250/50) 1 puff IH Q12H [facility] Last Admin: 08/30/16 06:46 Dose: 1 puff Senna/Docusate Sodium (Senokot S 50 Mg-8.6 Mg) [address] [facility] Last Admin: 08/29/16 21:06 Dose: 2 tab Simethicone (Mylicon Chew Tab) 80 mg PO TID PRN PRN Reason: Flatulence Last Admin: 08/29/16 01:24 Dose: 80 mg Valsartan (Diovan) 160 mg PO DAILY [facility] Last Admin: 08/30/16 08:51 Dose: 160 mg - Labs Labs: 08/29/16 11:34 08/29/16 11:34 - Constitutional Appears: No Acute Distress - Head Exam Head Exam: ATRAUMATIC - Eye Exam Eye Exam: EOMI Pupil Exam: PERRL - ENT Exam ENT Exam: Mucous Membranes Dry Additional comments: no noted pharyngeal exudate, no erythema - Neck Exam Neck Exam: Full ROM - Respiratory Exam Respiratory Exam: Clear to Ausculation Bilateral, NORMAL BREATHING PATTERN - Cardiovascular Exam Cardiovascular Exam: REGULAR RHYTHM, +S1, +S2 - GI/Abdominal Exam GI & Abdominal Exam: Soft, Normal Bowel Sounds. absent: Tenderness, Organomegaly - Extremities Exam Additional comments: lefft lower extremity: Left ankle in laxmi bandage place, Pt. able to move his toes, good cap refill, good color - Back Exam Back Exam: NORMAL INSPECTION. absent: CVA tenderness (L), CVA tenderness (R) - Neurological Exam Neurological Exam: Alert, Oriented x3 - Psychiatric Exam Psychiatric exam: Normal Affect, Normal Mood - Skin Skin Exam: Dry, Normal Color, Warm Assessment and Plan - Assessment and Plan (Free Text) Assessment: 41 y.o. male with history of poly-substance abuse, HIV, and chronic left foot ankle pain s/p Left ankle total replacement POD#2 with intractable pain Sore throat no signs of infection, may be due to post intubation cepachol PRN Left ankle total replacement POD#2 -Pain management consulted Anesthesia Dr. Tye Patel s/p Left lower limb popliteal block with Dr. Patel, procedure completed without complication + Dilaudid 2mg IVP Q3 PRN severe pain and PO Percocet 5/325 1tab for moderate pain & Percocet 5/325 2tab for severe pain started -Ancef 1gram Q8 -Pt eval recommendations of TCU -incentive spirometer -Post-OP CBC and BMP stable Constipation of unclear etiology most likely secondary to opioids 1- Flat plat abdomen ordered consistent with severe constipation-no bowel obstruction 2- Senokot 2 tabs QHS 3- Simethicone 80mg PO TID PRN 4- Fleet enema s/p bowel movement -lactulose daily HTN 1- Resume Valsartan 160mg Daily 2- Resume HCTHZ 12.5mg Daily Asthma 1- Advair 1 puff q12 Seizure disorder 1- Resume Keppra 1000mg Q12 HIV 1- Resume Complera 200-25-300 Daily Mood disorder 1- Resume Risperdal 2mg qhs 2- Resume Remeron 30mg qhs DVT prophylaxis 1- SCD 2- Lovenox 40mg sc daily Diet 1- Regular
[2016-08-30] MEDS ORDERED: Lactulose 10 gm/15 ml Syrup PO PRN (09:04)
[2016-08-30] MEDS: Simethicone 80 mg Chewtab PO PRN (10:19)
[2016-08-30] MEDS: Sodium Chloride 0.9% 500 ML IV SCH ×4 (11:36→20:38)
--- NOTE | 2016-08-30 11:46 | CP.PCM.PN ---
Subjective - Date & Time of Evaluation Date of Evaluation: 08/30/16 Time of Evaluation: 11:50 - Subjective Subjective: 41 y/o male patient 2 days s/p Left Total Ankle Replacement was seen bedside today. Patient was resting comfortably in bed, tolerating pain. Patient denies any acute events overnight. Dressing to Left lower extremity was clean dry and intact. Patient states that he could not do physical therapy due to pain and that he needs a few more days for physical therapy training. He denies n/f/v/d/c /sob. Objective - Vital Signs/Intake and Output Vital Signs (last 24 hours): Temp Pulse Resp BP Pulse Ox 98.8 F 110 H 18 148/90 94 L 08/30/16 08:17 08/30/16 08:17 08/30/16 08:17 08/30/16 08:17 08/30/16 08:17 Intake and Output: 08/30/16 08/30/16 06:59 18:59 Output Total 50 Balance -50 - Medications Medications: Current Medications Acetaminophen (Tylenol 325mg Tab) 650 mg PO Q4 PRN PRN Reason: Pain, Mild (1-3) or temp>101.5 Last Admin: 08/30/16 10:19 Dose: 650 mg Benzocaine/Menthol (Cepacol Sore Throat) 1 kenny PO Q2 PRN PRN Reason: Sore Throat Enoxaparin Sodium (Lovenox) 40 mg SC DAILY [facility] PRN Reason: Protocol Last Admin: 08/30/16 08:50 Dose: 40 mg Home Med (Emtricita/Rilpivir/Tenofovir) 1 tab PO DAILY [facility] Hydrochlorothiazide (Microzide) 12.5 mg PO DAILY [facility] Last Admin: 08/30/16 08:51 Dose: 12.5 mg Hydromorphone HCl (Dilaudid) 2 mg IVP Q3 PRN PRN Reason: Pain, severe (8-10) Stop: 08/31/16 23:59 Last Admin: 08/30/16 11:33 Dose: 2 mg Sodium Chloride (Sodium Chloride 0.9%) 500 mls @ 130 mls/hr IV .Q3H51M [facility] Last Admin: 08/30/16 11:36 Dose: Not Given Cefazolin Sodium 1 gm/ Sodium (Chloride) 100 mls @ 100 mls/hr IVPB Q8 [facility] Last Admin: 08/30/16 08:50 Dose: 100 mls/hr Lactulose (Enulose) 10 gm PO DAILY PRN PRN Reason: Constipation Levetiracetam (Keppra) 1,000 mg PO BID [facility] Last Admin: 08/30/16 08:51 Dose: 1,000 mg Mirtazapine (Remeron) 30 mg PO [facility] Last Admin: 08/29/16 21:05 Dose: 30 mg Oxycodone/Acetaminophen (Percocet 5/325 Mg Tab) 1 tab PO Q4 PRN PRN Reason: Pain, moderate (4-7) Stop: 08/31/16 13:34 Oxycodone/Acetaminophen (Percocet 5/325 Mg Tab) 2 tab PO Q4 PRN PRN Reason: Pain, severe (8-10) Stop: 08/31/16 13:34 Last Admin: 08/29/16 21:04 Dose: 2 tab Pregabalin (Lyrica) 50 mg PO DAILY [facility] Last Admin: 08/30/16 10:19 Dose: 50 mg Risperidone (Risperdal Tab) 2 mg PO [facility] Last Admin: 08/29/16 21:05 Dose: 2 mg Fluticasone/Salmeterol (Advair Diskus 250/50) 1 puff IH Q12H [facility] Last Admin: 08/30/16 06:46 Dose: 1 puff Senna/Docusate Sodium (Senokot S 50 Mg-8.6 Mg) 2 tab PO [facility] Last Admin: 08/29/16 21:06 Dose: 2 tab Simethicone (Mylicon Chew Tab) 80 mg PO TID PRN PRN Reason: Flatulence Last Admin: 08/30/16 10:19 Dose: 80 mg Valsartan (Diovan) 160 mg PO DAILY [facility] Last Admin: 08/30/16 08:51 Dose: 160 mg - Labs Labs: 08/29/16 11:34 08/29/16 11:34 - Constitutional Appears: Well, Non-toxic, No Acute Distress - Extremities Exam Additional comments: Left lower extremity exam Dressing to Left llower extremity appears cdi w/o strikethrough - Neurological Exam Neurological Exam: Alert, Awake, Oriented x3 - Psychiatric Exam Psychiatric exam: Normal Affect, Normal Mood - Skin Skin Exam: Normal Color, Warm Assessment and Plan - Assessment and Plan (Free Text) Assessment: 41 y/o male 2 days s/p Left total ankle replacement by Dr. Liu Plan: Pt was seen and examined at bedside discussed with Dr. Liu labs and vitals reviewed; afebrile Patient given Rx for pain medication and Lovenox to be c/d with. Rx in chart. Patient to go to TCU for ambulation training per PT Patient is stable from podiatry stand point.
[2016-08-30] MEDS: Oxycodone/Acetaminophen 5/325 mg Tab PO PRN ×2 (14:06→20:46)
[2016-08-30] MEDS ORDERED: Chlorhexidine Gluconate 1 APPL/PKT TP ONE (15:41)
--- NOTE | 2016-08-30 16:48 | PCM.RRTMUL ---
<Roque Kimble - Last Filed: 08/30/16 17:31> CHEMISTRY PROFESSOR Nurse Assessment - Situation CHEMISTRY PROFESSOR Responder Arrival Time:: 16:15 Location:: [facility] Room Number:: 661-1 CHEMISTRY PROFESSOR Reason for Call: Change in Mental Status CHEMISTRY PROFESSOR Called By: RN - IV IV Inserted during CHEMISTRY PROFESSOR?: No - Respiratory Oxygen Delivery Method:: Nasal Cannula Was the Patient Ventilated with Bag/Mask 100% O2?: Yes (100% NRB applied) - Stat Labs Ordered CHEMISTRY PROFESSOR Stat Labs Ordered:: BMP CHEMISTRY PROFESSOR Other Labs Ordered:: magnesium CPR started during CHEMISTRY PROFESSOR?: No - Vital Signs Blood Pressure:: 139/89 Pulse Rate:: 142 Respiratory Rate:: 18 Oxygen Saturation:: 86 - Time CHEMISTRY PROFESSOR Ended Time CHEMISTRY PROFESSOR Ended:: 16:30 - Vital Signs at end of CHEMISTRY PROFESSOR Blood Pressure:: 138/82 Pulse Rate:: 138 O2 Sat by Pulse Oximetry:: 98 - Recommendations 5) CHEMISTRY PROFESSOR Level of Care Recommendations: Remain in current setting 6) Notifications: Attending Physician, Consultations I.Reason for CHEMISTRY PROFESSOR - A) Acute Change in Patient: Subjective: CHEMISTRY PROFESSOR time: 4:09 pm CHEMISTRY PROFESSOR: arrival time: 4:13 pm CHEMISTRY PROFESSOR location: 661- Initial Vitals: 139/89 HR:145 O2:86 % nasal canula, 98% on non rebreather. S: CHEMISTRY PROFESSOR was called by the RN on a 41 YO M w/ h/o seizures who is s/p left total ankle replacement, after they took him to the [facility] to have a bowl movement where he started convulsing, shaking his upper and lower extremity for 10 seconds. He did not fall or hit his head. He was brought to the bed by the nurses and was put on nasal canula where he was saturating at 86%, he was then put on a non rebreather at 98%. He was awake with his eyes open but still not talking. O: HEENT: atraumatic, sweating. PEERLA Cardio: S1S2, RRR Resp: CTAB, tachypnic, no ronchi or rales noted Abdomen: Soft NTND Neuro: Moving all 4 extremities. Unable to follow commands. CHEMISTRY PROFESSOR intervention: 1.) BMP 2) Mg+ 3) ABG 4) Kepra level A: 41 Y/o M w/ h/o of seizures s/p left total ankle replacement had a break through seizure. 1) F/U Labs 2) Move patient closer to nurse station 3) Continue current treatment Dr. Branch was present at bedside entire CHEMISTRY PROFESSOR. Plan - B. Assessment of Findings&Treatment Plan CHEMISTRY PROFESSOR intervention: 1.) BMP 2) Mg+ 3) ABG 4) Kepra level A: 41 Y/o M w/ h/o of seizures s/p left total ankle replacement had a break through seizure. 1) F/U Labs 2) Move patient closer to nurse station 3) Continue current treatment Dr. Branch was present at bedside entire CHEMISTRY PROFESSOR. <[place] - Last Filed: 08/31/16 19:06> Attending/Attestation - Attestation I have personally seen and examined this patient.: Yes I have fully participated in the care of the patient.: Yes I have reviewed all pertinent clinical information, including history, physical exam and plan: Yes Notes (Text): 08/31/16 19:06 AGREE WITH FINDINGS AND PLAN ABOVE. SEEN AND REVIEWED PLAN WITH RESIDENT DR. ROQUE KIMBLE
[2016-08-30 16:51] LABS: BLOOD UREA NITROGEN 7 mg/dl (9-20); CALCIUM 9.7 mg/dL (8.4-10.2); CHLORIDE 105 mmol/L (98-107); GFR AFRICAN-AMERICAN > 60; GLUCOSE,RANDOM 211 mg/dL (75-110); MAGNESIUM 2.6 MG/DL (1.6-2.3); POTASSIUM 3.6 MMOL/L (3.6-5.0); SODIUM 148 mmol/l (132-148)
[2016-08-30 17:10] LABS: CARBON DIOXIDE 9 mmol/L (22-30)
[2016-08-30 17:31] LABS: ABG ALLEN TEST YES; ARTERIAL BLOOD GAS HCO3 20.2 mmol/L (21-28); ARTERIAL BLOOD GAS O2 CAPACITY 18.4 mL/dL (16-24); ARTERIAL BLOOD GAS O2 CONTENT 18.4 ML/dL (15-23); ARTERIAL BLOOD GAS PH 7.36 (7.35-7.45); ARTERIAL BLOOD GAS PO2 91 mm/Hg (80-100); ARTERIAL BLOOD HGB O2 SAT 94.6 % (95.0-98.0); METHEMOGLOBIN 2.4 % (0.0-3.0)
[2016-08-30] MEDS: Docusate-Senna 50 mg-8.6 mg Tab PO SCH (22:10)
[2016-08-31] MEDS: ceFAZolin 1 GM in Sodium Chloride 0.9% 100 ML IVPB SCH ×3 (00:03→17:01)
[2016-08-31] MEDS: Sodium Chloride 0.9% 500 ML IV SCH ×7 (00:10→23:45)
[2016-08-31] MEDS: Oxycodone/Acetaminophen 5/325 mg Tab PO PRN ×2 (04:43→09:57)
[2016-08-31] MEDS: Fluticasone-Salmeterol 250-50mcg Diskus IH SCH ×2 (06:06→18:26)
[2016-08-31] MEDS: Enoxaparin 40 mg Syringe SC SCH ×2 (09:59→10:01)
--- NOTE | 2016-08-31 11:06 | CP.PCM.PN ---
Subjective - Date & Time of Evaluation Date of Evaluation: 08/31/16 Time of Evaluation: 08:00 - Subjective Subjective: Patient seen and examined at bedside, laying in bed in no acute distress. No acute events overnight. Denies chest pain, SOB, weakness or dizziness. Reports moderate pain from left ankle, receiving pain management, having normal urine and stool output. No further seizure like activity noted since FOOD SERVICE ASSOCIATE called on wednesday. No other concerns or complaints at this time. Objective - Vital Signs/Intake and Output Vital Signs (last 24 hours): Temp Pulse Resp BP Pulse Ox 98.6 F 85 20 117/77 96 08/31/16 11:00 08/31/16 11:00 08/31/16 11:00 08/31/16 11:00 08/31/16 11:00 - Medications Medications: Current Medications Acetaminophen (Tylenol 325mg Tab) 650 mg PO Q4 PRN PRN Reason: Pain, Mild (1-3) or temp>101.5 Last Admin: 08/30/16 10:19 Dose: 650 mg Benzocaine/Menthol (Cepacol Sore Throat) 1 kenny PO Q2 PRN PRN Reason: Sore Throat Enoxaparin Sodium (Lovenox) 40 mg SC DAILY [facility] PRN Reason: Protocol Last Admin: 08/31/16 10:01 Dose: 40 mg Home Med (Emtricita/Rilpivir/Tenofovir) 1 tab PO DAILY [facility] Hydrochlorothiazide (Microzide) 12.5 mg PO DAILY [facility] Last Admin: 08/31/16 09:55 Dose: 12.5 mg Sodium Chloride (Sodium Chloride 0.9%) 500 mls @ 130 mls/hr IV .Q3H51M [facility] Last Admin: 08/31/16 04:39 Dose: Not Given Cefazolin Sodium 1 gm/ Sodium (Chloride) 100 mls @ 100 mls/hr IVPB Q8 [facility] Last Admin: 08/31/16 00:03 Dose: 100 mls/hr Lactulose (Enulose) 10 gm PO DAILY PRN PRN Reason: Constipation Last Admin: 08/30/16 14:21 Dose: 10 gm Levetiracetam (Keppra) 1,000 mg PO BID [facility] Last Admin: 08/31/16 09:56 Dose: 1,000 mg Mirtazapine (Remeron) 30 mg PO HS [facility] Last Admin: 08/30/16 22:08 Dose: 30 mg Oxycodone/Acetaminophen (Percocet 5/325 Mg Tab) 1 tab PO Q4 PRN PRN Reason: Pain, moderate (4-7) Stop: 08/31/16 13:34 Oxycodone/Acetaminophen (Percocet 5/325 Mg Tab) 2 tab PO Q4 PRN PRN Reason: Pain, severe (8-10) Stop: 08/31/16 13:34 Last Admin: 08/31/16 09:57 Dose: 2 tab Pregabalin (Lyrica) 50 mg PO DAILY [facility] Last Admin: 08/31/16 09:56 Dose: 50 mg Risperidone (Risperdal Tab) [address] [facility] Last Admin: 08/30/16 22:08 Dose: 2 mg Fluticasone/Salmeterol (Advair Diskus 250/50) 1 puff IH Q12H [facility] Last Admin: 08/31/16 06:06 Dose: 1 puff Senna/Docusate Sodium (Senokot S 50 Mg-8.6 Mg) [address] [facility] Last Admin: 08/30/16 22:10 Dose: 2 tab Simethicone (Mylicon Chew Tab) 80 mg PO TID PRN PRN Reason: Flatulence Last Admin: 08/30/16 10:19 Dose: 80 mg Valsartan (Diovan) 160 mg PO DAILY [facility] Last Admin: 08/31/16 09:55 Dose: 160 mg - Labs Labs: 08/29/16 11:34 08/30/16 16:39 - Constitutional Appears: No Acute Distress - Head Exam Head Exam: ATRAUMATIC, NORMOCEPHALIC - Eye Exam Eye Exam: Normal appearance - ENT Exam ENT Exam: Mucous Membranes Moist - Neck Exam Neck Exam: Full ROM. absent: Lymphadenopathy - Respiratory Exam Respiratory Exam: Clear to Ausculation Bilateral, NORMAL BREATHING PATTERN - Cardiovascular Exam Cardiovascular Exam: REGULAR RHYTHM, +S1, +S2 - GI/Abdominal Exam GI & Abdominal Exam: Soft (obese). absent: Distended, Tenderness - Extremities Exam Extremities Exam: Full ROM (of right lower extremity). absent: Calf Tenderness (left distal extremity dressing clean/dry/ intact, pt can wiggle all toes) - Back Exam Back Exam: absent: CVA tenderness (L), CVA tenderness (R) - Neurological Exam Neurological Exam: Alert, Awake - Psychiatric Exam Psychiatric exam: Normal Affect, Normal Mood - Skin Skin Exam: Dry, Intact, Warm Assessment and Plan - Assessment and Plan (Free Text) Assessment: 41 yr old M POD # 3 s/p total left ankle replacement with PMHx of poly- substance abuse, HIV, and chronic left foot ankle pain. Stable from podiatry standpoint. Neurology consult placed s/p FOOD SERVICE ASSOCIATE called on 08/30 for seizure like activity. Patient stable. 1. Left ankle total replacement POD#3 -patient stable from podiatry standpoint -pain management Percocet PRN 5/325 1tab for moderate pain & Percocet 5/325 2tab for severe pain -Day 4 Ancef 1gram Q8 -Pt eval recommendations of TCU -incentive spirometer -Post-OP CBC and BMP stable 2. HTN- controlled -continue Valsartan 160mg PO Daily -continue HCTZ 12.5mg PO Daily -monitor BP 3. Asthma -continue Advair 1 puff q12 4. Seizure disorder -continue Keppra 1000mg PO Q12 -Neurology consult appreciated: Dr. Diana 5. Asymptomatic HIV -Absolute CD4 count/CD8 count : 584/433 on 10/14/15 -continue home med: Complera 200-25-300 Daily 6. Mood disorder -continue Risperdal 2mg PO QHS -continue Remeron 30mg PO QHS 7. DVT prophylaxis -SCD's -Lovenox 40mg sc daily 8. Diet -Regular
[2016-08-31 12:20] LABS: BLOOD UREA NITROGEN 8 mg/dl (9-20); CALCIUM 8.8 mg/dL (8.4-10.2); CARBON DIOXIDE 24 mmol/L (22-30); CHLORIDE 108 mmol/L (98-107); GFR AFRICAN-AMERICAN > 60; GLUCOSE,RANDOM 100 mg/dL (75-110); POTASSIUM 3.4 MMOL/L (3.6-5.0); SODIUM 143 mmol/l (132-148)
--- NOTE | 2016-08-31 12:40 | CP.PCM.PN ---
Subjective - Date & Time of Evaluation Date of Evaluation: 08/31/16 Time of Evaluation: 10:30 - Subjective Subjective: 41 y/o male patient 3 days s/p Left Total Ankle Replacement seen today at bedside with attending Dr. Liu present. Pt seen resting comfortably in bed at time of visit, appears to be in NAD at time of visit. Is awake and alert, does seem somewhat lethargic however. Of note, an [employer]IE DOUGH ROLLER was called for patient yesterday afternoon due to altered mentation. Per notes, pt was on bedside commode and displayed seizure-like activity for approximately 10 seconds. Nursing denies any acute events thereafter overnight. Pt does admit to some pain to the left ankle today but says pain meds are helping. Denies f/n/v/c/sob/ cp. Objective - Vital Signs/Intake and Output Vital Signs (last 24 hours): Temp Pulse Resp BP Pulse Ox 98.6 F 85 20 117/77 96 08/31/16 11:00 08/31/16 11:00 08/31/16 11:00 08/31/16 11:00 08/31/16 11:00 - Medications Medications: Current Medications Acetaminophen (Tylenol 325mg Tab) 650 mg PO Q4 PRN PRN Reason: Pain, Mild (1-3) or temp>101.5 Last Admin: 08/30/16 10:19 Dose: 650 mg Benzocaine/Menthol (Cepacol Sore Throat) 1 kenny PO Q2 PRN PRN Reason: Sore Throat Enoxaparin Sodium (Lovenox) 40 mg SC DAILY [facility] PRN Reason: Protocol Last Admin: 08/31/16 10:01 Dose: 40 mg Home Med (Emtricita/Rilpivir/Tenofovir) 1 tab PO DAILY [facility] Hydrochlorothiazide (Microzide) 12.5 mg PO DAILY [facility] Last Admin: 08/31/16 09:55 Dose: 12.5 mg Sodium Chloride (Sodium Chloride 0.9%) 500 mls @ 130 mls/hr IV .Q3H51M [facility] Last Admin: 08/31/16 11:26 Dose: 130 mls/hr Cefazolin Sodium 1 gm/ Sodium (Chloride) 100 mls @ 100 mls/hr IVPB Q8 [facility] Last Admin: 08/31/16 11:22 Dose: 100 mls/hr Lactulose (Enulose) 10 gm PO DAILY PRN PRN Reason: Constipation Last Admin: 08/30/16 14:21 Dose: 10 gm Levetiracetam (Keppra) 1,000 mg PO BID [facility] Last Admin: 08/31/16 09:56 Dose: 1,000 mg Mirtazapine (Remeron) [address] [facility] Last Admin: 08/30/16 22:08 Dose: 30 mg Oxycodone/Acetaminophen (Percocet 5/325 Mg Tab) 1 tab PO Q4 PRN PRN Reason: Pain, moderate (4-7) Stop: 08/31/16 13:34 Oxycodone/Acetaminophen (Percocet 5/325 Mg Tab) 2 tab PO Q4 PRN PRN Reason: Pain, severe (8-10) Stop: 08/31/16 13:34 Last Admin: 08/31/16 09:57 Dose: 2 tab Pregabalin (Lyrica) 50 mg PO DAILY [facility] Last Admin: 08/31/16 09:56 Dose: 50 mg Risperidone (Risperdal Tab) [address] [facility] Last Admin: 08/30/16 22:08 Dose: 2 mg Fluticasone/Salmeterol (Advair Diskus 250/50) 1 puff IH Q12H [facility] Last Admin: 08/31/16 06:06 Dose: 1 puff Senna/Docusate Sodium (Senokot S 50 Mg-8.6 Mg) [address] [facility] Last Admin: 08/30/16 22:10 Dose: 2 tab Simethicone (Mylicon Chew Tab) 80 mg PO TID PRN PRN Reason: Flatulence Last Admin: 08/30/16 10:19 Dose: 80 mg Valsartan (Diovan) 160 mg PO DAILY [facility] Last Admin: 08/31/16 09:55 Dose: 160 mg - Labs Labs: 08/29/16 11:34 08/31/16 11:15 - Constitutional Appears: Non-toxic, No Acute Distress - Extremities Exam Extremities Exam: absent: Calf Tenderness Additional comments: LLE focused exam: Dressing to Left lower extremity appears c/d/i with no evidence of strikethrough noted, pt able to wiggle all toes freely - Neurological Exam Neurological Exam: Alert, Awake - Psychiatric Exam Psychiatric exam: Normal Affect, Normal Mood Assessment and Plan - Assessment and Plan (Free Text) Assessment: 41 y/o male 3 days s/p Left total ankle replacement by Dr. Liu Plan: Pt S&E at bedside with attending Dr. Liu present labs and vitals reviewed; afebrile c/w pain medication regiment (percocet) c/w DVT prophylaxis Lovenox f.u PT recommendations Pt to TCU for rehab once medically stable. Stable from podiatry standpoint.
--- NOTE | 2016-08-31 16:22 | CP.PCM.PCO ---
Assessment/Plan - Assessment and Plan (Free Text) Assessment: I saw and evaluated the patient. I discussed the case with the resident and agree with the findings and plan as documented in the resident's note. Pt is on much higher pain meds as oupt Pain meds adjusted consider pain management.
[2016-08-31] MEDS: oxyCODONE 20 mg ER Tab (oxyCONTIN) PO SCH (17:52)
[2016-08-31] MEDS: Docusate-Senna 50 mg-8.6 mg Tab PO SCH (22:40)
[2016-09-01] MEDS: oxyCODONE 20 mg ER Tab (oxyCONTIN) PO SCH ×3 (00:37→19:00)
[2016-09-01] MEDS: ceFAZolin 1 GM in Sodium Chloride 0.9% 100 ML IVPB SCH ×3 (00:38→16:34)
[2016-09-01] MEDS: Sodium Chloride 0.9% 500 ML IV SCH ×3 (03:25→23:00)
[2016-09-01] MEDS: Fluticasone-Salmeterol 250-50mcg Diskus IH SCH ×3 (05:35→20:26)
--- NOTE | 2016-09-01 08:36 | CP.PCM.PN ---
Subjective - Date & Time of Evaluation Date of Evaluation: 09/01/16 Time of Evaluation: 08:55 - Subjective Subjective: 41 y/o male patient 4 days s/p Left Total Ankle Replacement seen today at bedside. Patient was seen resting comfortably in bed at time of visit. Patient is more talkative today and engaging in conversation. Pt admits to pain to left ankle has improved today and says pain meds are helping. Pt states elevating the leg has helped with the pain. Denies f/n/v/c/sob/cp or chills.. Objective - Vital Signs/Intake and Output Vital Signs (last 24 hours): Temp Pulse Resp BP Pulse Ox 97.7 F 98 H 20 112/72 99 09/01/16 07:39 09/01/16 07:39 09/01/16 07:39 09/01/16 07:39 09/01/16 07:39 - Medications Medications: Current Medications Acetaminophen (Tylenol 325mg Tab) 650 mg PO Q4 PRN PRN Reason: Pain, Mild (1-3) or temp>101.5 Last Admin: 08/30/16 10:19 Dose: 650 mg Alprazolam (Xanax) 1 mg PO Q8 [facility] Last Admin: 09/01/16 00:38 Dose: 1 mg Benzocaine/Menthol (Cepacol Sore Throat) 1 kenny PO Q2 PRN PRN Reason: Sore Throat Enoxaparin Sodium (Lovenox) 40 mg SC DAILY [facility] PRN Reason: Protocol Last Admin: 08/31/16 10:01 Dose: 40 mg Home Med (Emtricita/Rilpivir/Tenofovir) 1 tab PO DAILY [facility] Hydrochlorothiazide (Microzide) 12.5 mg PO DAILY [facility] Last Admin: 08/31/16 09:55 Dose: 12.5 mg Sodium Chloride (Sodium Chloride 0.9%) 500 mls @ 130 mls/hr IV .Q3H51M [facility] Last Admin: 09/01/16 04:37 Dose: 130 mls/hr Cefazolin Sodium 1 gm/ Sodium (Chloride) 100 mls @ 100 mls/hr IVPB Q8 [facility] Last Admin: 09/01/16 00:38 Dose: 100 mls/hr Ketorolac Tromethamine (Toradol) 30 mg IVP Q6 PRN PRN Reason: Pain, Mild (1-3) Last Admin: 09/01/16 04:32 Dose: 30 mg Lactulose (Enulose) 10 gm PO DAILY PRN PRN Reason: Constipation Last Admin: 08/30/16 14:21 Dose: 10 gm Levetiracetam (Keppra) 1,250 mg PO BID [facility] Mirtazapine (Remeron) 30 mg PO HS [facility] Last Admin: 08/31/16 22:39 Dose: 30 mg Oxycodone HCl (Oxycontin Extended Release Tab) 20 mg PO Q8 [facility] Last Admin: 09/01/16 00:37 Dose: 20 mg Pregabalin (Lyrica) 50 mg PO DAILY [facility] Last Admin: 08/31/16 09:56 Dose: 50 mg Risperidone (Risperdal Tab) 2 mg PO HS [facility] Last Admin: 08/31/16 22:39 Dose: 2 mg Fluticasone/Salmeterol (Advair Diskus 250/50) 1 puff IH Q12H [facility] Last Admin: 09/01/16 05:35 Dose: 1 puff Senna/Docusate Sodium (Senokot S 50 Mg-8.6 Mg) 2 tab PO HS [facility] Last Admin: 08/31/16 22:40 Dose: Not Given Simethicone (Mylicon Chew Tab) 80 mg PO TID PRN PRN Reason: Flatulence Last Admin: 08/30/16 10:19 Dose: 80 mg Valsartan (Diovan) 160 mg PO DAILY [facility] Last Admin: 08/31/16 09:55 Dose: 160 mg Zolpidem Tartrate (Ambien) 5 mg PO HS PRN PRN Reason: Insomnia - Labs Labs: 08/29/16 11:34 08/31/16 11:15 - Constitutional Appears: Well, Non-toxic, No Acute Distress - Extremities Exam Additional comments: Dressing is C/D/I with not strikethrough noted. - Neurological Exam Neurological Exam: Alert, Awake, Oriented x3 - Psychiatric Exam Psychiatric exam: Normal Affect, Normal Mood Assessment and Plan - Assessment and Plan (Free Text) Assessment: 41 y/o male 4 days s/p Left total ankle replacement by Dr. Liu Plan: Patient seen and evaluated at bedside Discussed plan with Dr. Liu Chart reviewed c/w new pain medication regimen (2 tabs percocet and 30 mg toradol IV) c/w left lower extremity elevation, ice behind the knee c/w DVT prophylaxis Lovenox f/u PT recommendations recommend continuing with incentive spirometer while in house; patient encouraged to use hourly Continue nonweight bearing to left lower extremity Pt to TCU for rehab once medically stable Stable from podiatry standpoint.
[2016-09-01] MEDS: Enoxaparin 40 mg Syringe SC SCH (08:53)
[2016-09-01] MEDS: Patient's Own Med (Emtricita/Rilpivir/Tenofovir 1 TAB) PO SCH (12:00)
--- NOTE | 2016-09-01 12:44 | CP.PCM.PN ---
Subjective - Date & Time of Evaluation Date of Evaluation: 09/01/16 Time of Evaluation: 08:10 - Subjective Subjective: Patient seen and examined at bedside, more alert and awake, no acute events overnight. Reports good appetite, pain is currently controlled with medication and elevation of left foot. Has normal urine and stool output. Patient inquired as to when his next pain medication administration is, per nurse patient had just received pain meds, instructed patient to notify nurse when he has pain so he can be re-assessed at that time. Has no other concerns or complaints at this time. Objective - Vital Signs/Intake and Output Vital Signs (last 24 hours): Temp Pulse Resp BP Pulse Ox 97.7 F 98 H 20 112/72 99 09/01/16 07:39 09/01/16 07:39 09/01/16 07:39 09/01/16 07:39 09/01/16 07:39 - Medications Medications: Current Medications Acetaminophen (Tylenol 325mg Tab) 650 mg PO Q4 PRN PRN Reason: Pain, Mild (1-3) or temp>101.5 Last Admin: 08/30/16 10:19 Dose: 650 mg Alprazolam (Xanax) 1 mg PO Q8 [facility] Last Admin: 09/01/16 08:56 Dose: 1 mg Benzocaine/Menthol (Cepacol Sore Throat) 1 kenny PO Q2 PRN PRN Reason: Sore Throat Enoxaparin Sodium (Lovenox) 40 mg SC DAILY [facility] PRN Reason: Protocol Last Admin: 09/01/16 08:53 Dose: 40 mg Home Med (Emtricita/Rilpivir/Tenofovir) 1 tab PO DAILY [facility] Hydrochlorothiazide (Microzide) 12.5 mg PO DAILY [facility] Last Admin: 09/01/16 08:55 Dose: 12.5 mg Sodium Chloride (Sodium Chloride 0.9%) 500 mls @ 130 mls/hr IV .Q3H51M [facility] Last Admin: 09/01/16 04:37 Dose: 130 mls/hr Cefazolin Sodium 1 gm/ Sodium (Chloride) 100 mls @ 100 mls/hr IVPB Q8 [facility] Last Admin: 09/01/16 08:52 Dose: 100 mls/hr Ketorolac Tromethamine (Toradol) 30 mg IVP Q6 PRN PRN Reason: Pain, Mild (1-3) Last Admin: 09/01/16 11:12 Dose: 30 mg Lactulose (Enulose) 10 gm PO DAILY PRN PRN Reason: Constipation Last Admin: 08/30/16 14:21 Dose: 10 gm Levetiracetam (Keppra) 1,250 mg PO BID [facility] Last Admin: 09/01/16 08:54 Dose: 1,250 mg Mirtazapine (Remeron) 30 mg PO [facility] Last Admin: 08/31/16 22:39 Dose: 30 mg Oxycodone HCl (Oxycontin Extended Release Tab) 20 mg PO Q8 [facility] Last Admin: 09/01/16 09:02 Dose: 20 mg Pregabalin (Lyrica) 50 mg PO DAILY [facility] Last Admin: 09/01/16 09:00 Dose: 50 mg Risperidone (Risperdal Tab) 2 mg PO [facility] Last Admin: 08/31/16 22:39 Dose: 2 mg Fluticasone/Salmeterol (Advair Diskus 250/50) 1 puff IH Q12H [facility] Last Admin: 09/01/16 05:35 Dose: 1 puff Senna/Docusate Sodium (Senokot S 50 Mg-8.6 Mg) 2 tab PO [facility] Last Admin: 08/31/16 22:40 Dose: Not Given Simethicone (Mylicon Chew Tab) 80 mg PO TID PRN PRN Reason: Flatulence Last Admin: 08/30/16 10:19 Dose: 80 mg Valsartan (Diovan) 160 mg PO DAILY [facility] Last Admin: 09/01/16 08:57 Dose: 160 mg Zolpidem Tartrate (Ambien) 5 mg PO HS PRN PRN Reason: Insomnia - Labs Labs: 08/29/16 11:34 08/31/16 11:15 - Constitutional Appears: Well, Non-toxic, No Acute Distress - Head Exam Head Exam: ATRAUMATIC, NORMOCEPHALIC - Eye Exam Eye Exam: EOMI, PERRL - ENT Exam ENT Exam: Mucous Membranes Moist - Neck Exam Neck Exam: Full ROM. absent: Lymphadenopathy - Respiratory Exam Respiratory Exam: Clear to Ausculation Bilateral, NORMAL BREATHING PATTERN - Cardiovascular Exam Cardiovascular Exam: REGULAR RHYTHM, +S1, +S2 - GI/Abdominal Exam GI & Abdominal Exam: Soft (obese), Normal Bowel Sounds. absent: Distended, Tenderness - Extremities Exam Extremities Exam: Full ROM (of bilateral UE and RLE; LLE dressing clean/dry/ intact, LLE elevated ) - Back Exam Back Exam: absent: CVA tenderness (L), CVA tenderness (R) - Neurological Exam Neurological Exam: Alert, Awake, CN II-XII Intact, Oriented x3 - Psychiatric Exam Psychiatric exam: Normal Affect, Normal Mood (displays pain medication seeking behavior) - Skin Skin Exam: Dry, Intact, Warm Assessment and Plan - Assessment and Plan (Free Text) Assessment: 41 yr old M POD # 4 s/p total left ankle replacement with PMHx of poly- substance abuse, HIV, and chronic left foot ankle pain. Stable from podiatry standpoint. Neurology consult placed s/p [employer] MACH[employer] OPERATOR called on 08/30 for seizure like activity. Patient stable with no recurrence of seizure like activity, neurology on board-increased Keppra to 1,250mg PO BID. Pain medication adjusted. 1. Left ankle total replacement POD#4 -patient stable from podiatry standpoint -pain management Oxycodone HCl 20mg PO Q8, Toradol 30mg IV Q6 PRN pain mild 1-3 -Day 5 Ancef 1gram Q8 -Pt eval recommendations of TCU, awaiting clearance from neurology for transfer -incentive spirometer -Post-OP CBC and BMP stable 2. HTN- controlled -continue Valsartan 160mg PO Daily -continue HCTZ 12.5mg PO Daily -monitor BP 3. Asthma -continue Advair 1 puff q12 4. Seizure disorder -per neurology, increased Keppra to 1,250mg PO Q12 -Neurology consult appreciated: Dr. Diana -f/u EEG report 5. Asymptomatic HIV -Absolute CD4 count/CD8 count : 584/433 on 10/14/15 -continue home med: Complera 200-25-300 Daily 6. Mood disorder -continue Risperdal 2mg PO QHS -continue Remeron 30mg PO QHS 7. DVT prophylaxis -SCD's -Lovenox 40mg sc daily 8. Diet -Regular
[2016-09-01] MEDS: HYDROmorphone 0.5 mg/0.5 ml ISec IVP PRN ×2 (16:27→20:23)
[2016-09-01] MEDS: Docusate-Senna 50 mg-8.6 mg Tab PO SCH (21:15)
[2016-09-02] MEDS: ceFAZolin 1 GM in Sodium Chloride 0.9% 100 ML IVPB SCH ×2 (00:11→09:15)
[2016-09-02] MEDS: oxyCODONE 20 mg ER Tab (oxyCONTIN) PO SCH ×2 (01:04→08:18)
[2016-09-02] MEDS: Sodium Chloride 0.9% 500 ML IV SCH ×3 (02:30→06:20)
[2016-09-02] MEDS: Fluticasone-Salmeterol 250-50mcg Diskus IH SCH (05:58)
[2016-09-02 07:44] VITALS: BP 129/78; RESP 20; TEMP 98
--- NOTE | 2016-09-02 07:48 | CP.PCM.PN ---
Subjective - Date & Time of Evaluation Date of Evaluation: 09/02/16 Time of Evaluation: 07:50 - Subjective Subjective: 41 y/o male patient 5 days s/p left total ankle replacement seen today at bedside. Patient in mild discomfort complaining of pain and to entire left extremity extending to the toes. Patient states he cannot feel sensation in his legs or toes because of the pain. Pt says that the pain injections are helping but that the pills are not providing any relief. Denies f/n/v/c/sob/cp or chills. Objective - Vital Signs/Intake and Output Vital Signs (last 24 hours): Temp Pulse Resp BP Pulse Ox 98.0 F 84 20 129/78 97 09/02/16 07:44 09/02/16 07:44 09/02/16 07:44 09/02/16 07:44 09/02/16 07:44 - Medications Medications: Current Medications Acetaminophen (Tylenol 325mg Tab) 650 mg PO Q4 PRN PRN Reason: Pain, Mild (1-3) or temp>101.5 Last Admin: 09/01/16 14:09 Dose: 650 mg Alprazolam (Xanax) 1 mg PO Q8 [facility] Last Admin: 09/02/16 01:03 Dose: 1 mg Benzocaine/Menthol (Cepacol Sore Throat) 1 kenny PO Q2 PRN PRN Reason: Sore Throat Enoxaparin Sodium (Lovenox) 40 mg SC DAILY [facility] PRN Reason: Protocol Last Admin: 09/01/16 08:53 Dose: 40 mg Home Med (Emtricita/Rilpivir/Tenofovir) 1 tab PO DAILY [facility] Last Admin: 09/01/16 12:00 Dose: 1 tab Hydrochlorothiazide (Microzide) 12.5 mg PO DAILY [facility] Last Admin: 09/01/16 08:55 Dose: 12.5 mg Hydromorphone HCl (Dilaudid) 0.5 mg IVP Q4 PRN PRN Reason: Pain, severe (8-10) Last Admin: 09/01/16 20:23 Dose: 0.5 mg Hydromorphone HCl (Dilaudid) 1 mg IVP Q4 PRN PRN Reason: Pain, severe (8-10) Sodium Chloride (Sodium Chloride 0.9%) 500 mls @ 130 mls/hr IV .Q3H51M [facility] Last Admin: 09/02/16 06:20 Dose: Not Given Cefazolin Sodium 1 gm/ Sodium (Chloride) 100 mls @ 100 mls/hr IVPB Q8 [facility] Last Admin: 09/02/16 00:11 Dose: 100 mls/hr Ketorolac Tromethamine (Toradol) 30 mg IVP Q6 PRN PRN Reason: Pain, Mild (1-3) Last Admin: 09/02/16 05:58 Dose: 30 mg Lactulose (Enulose) 10 gm PO DAILY PRN PRN Reason: Constipation Last Admin: 08/30/16 14:21 Dose: 10 gm Levetiracetam (Keppra) 1,250 mg PO BID [facility] Last Admin: 09/01/16 16:36 Dose: 1,250 mg Mirtazapine (Remeron) 30 mg PO HS [facility] Last Admin: 09/01/16 21:08 Dose: 30 mg Oxycodone HCl (Oxycontin Extended Release Tab) 20 mg PO Q8 [facility] Last Admin: 09/02/16 01:04 Dose: 20 mg Pregabalin (Lyrica) 50 mg PO DAILY [facility] Last Admin: 09/01/16 09:00 Dose: 50 mg Risperidone (Risperdal Tab) 2 mg PO HS [facility] Last Admin: 09/01/16 21:08 Dose: 2 mg Fluticasone/Salmeterol (Advair Diskus 250/50) 1 puff IH Q12H [facility] Last Admin: 09/02/16 05:58 Dose: 1 puff Senna/Docusate Sodium (Senokot S 50 Mg-8.6 Mg) 2 tab PO HS [facility] Last Admin: 09/01/16 21:15 Dose: 2 tab Simethicone (Mylicon Chew Tab) 80 mg PO TID PRN PRN Reason: Flatulence Last Admin: 08/30/16 10:19 Dose: 80 mg Valsartan (Diovan) 160 mg PO DAILY [facility] Last Admin: 09/01/16 08:57 Dose: 160 mg Zolpidem Tartrate (Ambien) 5 mg PO HS PRN PRN Reason: Insomnia Last Admin: 09/01/16 21:57 Dose: 5 mg - Labs Labs: 08/29/16 11:34 08/31/16 11:15 - Constitutional Appears: Well, Non-toxic, No Acute Distress - Extremities Exam Additional comments: Left lower extremity focused exam: Vasc: DP faintly palpable due to edema; PT 2/4. CFT < 3 sec x 5. Moderate non- pitting edema. Temperature gradient WNL. Derm: Surgical incision site appears well-coapted, no dehiscence, no purulence, no drainage, no malodor, sutures intact. Neuro: Unable to assess due to pain Assessment and Plan - Assessment and Plan (Free Text) Assessment: 41 y/o male 5 days s/p Left total ankle replacement by Dr. Liu Plan: Patient seen and evaluated at bedside Discussed plan with Dr. Liu Chart reviewed Discussed plan with Dr. Beal, who informed us that patient has long history of high dose pain medication use and high pain tolerance F/U changes to pain medication as per Dr. Beal - recommendations appreciated c/w percocet and 30 mg toradol IV for now Changed surgical dressing and reapplied splint c/w left lower extremity elevation, ice behind the knee c/w DVT prophylaxis Lovenox f/u PT recommendations recommend continuing with incentive spirometer while in house; patient encouraged to use hourly Continue nonweight bearing to left lower extremity Pt to TCU for rehab once medically stable Stable from podiatry standpoint.
--- NOTE | 2016-09-02 08:25 | CP.PCM.PN ---
Subjective - Date & Time of Evaluation Date of Evaluation: 09/02/16 Time of Evaluation: 08:00 - Subjective Subjective: Patient seen and examined at bedside, reports his back and left foot pain remains uncontrolled despite adjusment of pain medication by pain management. Patient also reports he cannot feel his left toes. Otherwise patient is stable, has normal appetite, urine and stool output. Denies chest pain, SOB, weakness or dizziness. Displays persistent drug seeking behavior, asking for more pain meds immediately after receiving them. Patient has no other concerns or complaints at this time. Objective - Vital Signs/Intake and Output Vital Signs (last 24 hours): Temp Pulse Resp BP Pulse Ox 98.0 F 84 20 129/78 97 09/02/16 07:44 09/02/16 07:44 09/02/16 07:44 09/02/16 07:44 09/02/16 07:44 - Medications Medications: Current Medications Acetaminophen (Tylenol 325mg Tab) 650 mg PO Q4 PRN PRN Reason: Pain, Mild (1-3) or temp>101.5 Last Admin: 09/01/16 14:09 Dose: 650 mg Alprazolam (Xanax) 1 mg PO Q8 [facility] Last Admin: 09/02/16 01:03 Dose: 1 mg Benzocaine/Menthol (Cepacol Sore Throat) 1 kenny PO Q2 PRN PRN Reason: Sore Throat Enoxaparin Sodium (Lovenox) 40 mg SC DAILY [facility] PRN Reason: Protocol Last Admin: 09/01/16 08:53 Dose: 40 mg Home Med (Emtricita/Rilpivir/Tenofovir) 1 tab PO DAILY [facility] Last Admin: 09/01/16 12:00 Dose: 1 tab Hydrochlorothiazide (Microzide) 12.5 mg PO DAILY [facility] Last Admin: 09/01/16 08:55 Dose: 12.5 mg Hydromorphone HCl (Dilaudid) 0.5 mg IVP Q4 PRN PRN Reason: Pain, severe (8-10) Last Admin: 09/01/16 20:23 Dose: 0.5 mg Hydromorphone HCl (Dilaudid) 1 mg IVP Q4 PRN PRN Reason: Pain, severe (8-10) Last Admin: 09/02/16 08:18 Dose: 1 mg Sodium Chloride (Sodium Chloride 0.9%) 500 mls @ 130 mls/hr IV .Q3H51M [facility] Last Admin: 09/02/16 06:20 Dose: Not Given Cefazolin Sodium 1 gm/ Sodium (Chloride) 100 mls @ 100 mls/hr IVPB Q8 [facility] Last Admin: 09/02/16 00:11 Dose: 100 mls/hr Ketorolac Tromethamine (Toradol) 30 mg IVP Q6 PRN PRN Reason: Pain, Mild (1-3) Last Admin: 09/02/16 05:58 Dose: 30 mg Lactulose (Enulose) 10 gm PO DAILY PRN PRN Reason: Constipation Last Admin: 08/30/16 14:21 Dose: 10 gm Levetiracetam (Keppra) 1,250 mg PO BID [facility] Last Admin: 09/01/16 16:36 Dose: 1,250 mg Mirtazapine (Remeron) 30 mg PO HS [facility] Last Admin: 09/01/16 21:08 Dose: 30 mg Oxycodone HCl (Oxycontin Extended Release Tab) 20 mg PO Q8 [facility] Last Admin: 09/02/16 08:18 Dose: 20 mg Pregabalin (Lyrica) 50 mg PO DAILY [facility] Last Admin: 09/02/16 08:19 Dose: 50 mg Risperidone (Risperdal Tab) 2 mg PO HS [facility] Last Admin: 09/01/16 21:08 Dose: 2 mg Fluticasone/Salmeterol (Advair Diskus 250/50) 1 puff IH Q12H [facility] Last Admin: 09/02/16 05:58 Dose: 1 puff Senna/Docusate Sodium (Senokot S 50 Mg-8.6 Mg) 2 tab PO HS [facility] Last Admin: 09/01/16 21:15 Dose: 2 tab Simethicone (Mylicon Chew Tab) 80 mg PO TID PRN PRN Reason: Flatulence Last Admin: 08/30/16 10:19 Dose: 80 mg Valsartan (Diovan) 160 mg PO DAILY [facility] Last Admin: 09/01/16 08:57 Dose: 160 mg Zolpidem Tartrate (Ambien) 5 mg PO HS PRN PRN Reason: Insomnia Last Admin: 09/01/16 21:57 Dose: 5 mg - Labs Labs: 08/29/16 11:34 08/31/16 11:15 - Constitutional Appears: Non-toxic, No Acute Distress, Other (sedated) - Head Exam Head Exam: ATRAUMATIC, NORMOCEPHALIC - Eye Exam Eye Exam: EOMI, PERRL - ENT Exam ENT Exam: Mucous Membranes Moist - Neck Exam Neck Exam: Full ROM. absent: Lymphadenopathy - Respiratory Exam Respiratory Exam: Clear to Ausculation Bilateral, NORMAL BREATHING PATTERN - Cardiovascular Exam Cardiovascular Exam: REGULAR RHYTHM, +S1, +S2 - GI/Abdominal Exam GI & Abdominal Exam: Soft (obese), Normal Bowel Sounds. absent: Distended, Tenderness - Extremities Exam Extremities Exam: Normal Inspection (of left foot dressing, toes warm to touch with good capillary reflex). absent: Calf Tenderness, Pedal Edema - Back Exam Back Exam: absent: CVA tenderness (L), CVA tenderness (R) - Neurological Exam Neurological Exam: Alert, Awake, CN II-XII Intact, Oriented x3 - Psychiatric Exam Psychiatric exam: Normal Affect, Normal Mood - Skin Skin Exam: Dry, Intact, Warm Assessment and Plan - Assessment and Plan (Free Text) Assessment: 41 yr old M POD # 5 s/p total left ankle replacement with PMHx of poly- substance abuse, HIV, and chronic left foot ankle pain. Podiatry re-assessed pt this AM, stable from podiatry standpoint. Neurology consult placed s/p [employer] called on 08/30 for seizure like activity. Patient stable with no recurrence of seizure like activity, neurology on board-increased Keppra to 1,250mg PO BID. Pain management saw patient this AM and medication adjusted. Patient is displaying drug seeking behavior. Will be transferred to TCU per PT recommendation. 1. Left ankle total replacement POD #5 -patient stable from podiatry standpoint -pain management Oxycodone HCl 20mg PO Q8, Toradol 30mg IV Q6 PRN pain mild 1-3 , Dilaudid 1mg IV Q4 moderate pain (4-7), Dilaudid 2mg IV Q4 PRN severe pain (8 -10) -Day 6 Ancef 1gram Q8 -Pt eval recommendations of TCU, will transfer today -incentive spirometer -Post-OP CBC and BMP stable 2. HTN- controlled -continue Valsartan 160mg PO Daily -continue HCTZ 12.5mg PO Daily -monitor BP 3. Asthma -continue Advair 1 puff q12 4. Seizure disorder -per neurology, increased Keppra to 1,250mg PO Q12 -Neurology consult appreciated: Dr. Diana -f/u EEG report 5. Asymptomatic HIV -Absolute CD4 count/CD8 count : 584/433 on 10/14/15 -continue home med: Complera 200-25-300 Daily 6. Mood disorder -continue Risperdal 2mg PO QHS -continue Remeron 30mg PO QHS 7. DVT prophylaxis -SCD's -Lovenox 40mg sc daily 8. Diet -Regular
[2016-09-02] MEDS: Enoxaparin 40 mg Syringe SC SCH (09:12)
[2016-09-02] MEDS: Patient's Own Med (Emtricita/Rilpivir/Tenofovir 1 TAB) PO SCH ×2 (09:12→09:31)
[2016-09-02 11:42] VITALS: PULSE 104; O2SAT 96
--- NOTE | 2016-09-02 12:11 | EEG ---
DATE: 08/31/2016 REFERRING PHYSICIAN: Eleanor Russ. REASON FOR ELECTROENCEPHALOGRAM: To evaluate for a history of seizures. CONDITION OF RECORDING: An awake and drowsy EEG. DIAGNOSIS: History of seizure disorder. MEDICATIONS: Reviewed per the nurse's medication reconciliation sheet. INTERPRETATION: This is a multichannel digital EEG recording using the international 10/20 placement system. The resting record is poorly organized but symmetric. A dominant posterior rhythm is seen and sustained. This consisted of a 10 Hz, 20-50 microvolt alpha rhythm. This attenuated with eye op ening. During drowsiness or stage I sleep, there is mild attenuation and slowing of the background r hythm. Stage II sleep was not achieved. Hyperventilation was not performed. Photic stimulation did not significantly alter the background rhythm. There was prominent muscle artifact noted and promin ent movement artifact also noted as well as electrode artifact during the entire recording. However, there were 2 or 3 left temporoparietal sharp wave discharges noted. CONCLUSION: This is a probably normal awake and drowsy electroencephalograph recording. The presenc e of 2-3 sharp waves could be a normal finding. However, in the appropriate clinical setting it may also be consistent with a seizure disorder of focal onset. If indicated, repeat the electroencephalo gram and/or 24-hour ambulatory electroencephalogram monitoring may be done in the future. Cam Carl MD cc: [id number] TT: 09/02/2016 12:10:09 Confirmation # [id number] Dictation # [id number] mn
== END 2016-09-02 12:02 | DRG 209 ==
LOC: H.OPSURG 06:01 → H.MEDSURG1 13:30 → OBSVTOIN 08-29 18:33 → H.MEDSURG1 08-30 17:33
PROVIDERS: ADMIT Family Medicine Geriatric Medicine; ATTEND Family Medicine Geriatric Medicine
PROC: 0SRG0J9 Replacement of Left Ankle Joint with Synthetic Substitute, Cemented, Open Approach (ICD-10-PCS; principal; 2016-08-29)
PROC: 3E0T3BZ Introduction of Anesthetic Agent into Peripheral Nerves and Plexi, Percutaneous Approach (ICD-10-PCS; 2016-08-29)
DX: M12.572 Traumatic arthropathy, left ankle and foot (principal); I10 Essential (primary) hypertension; F32.9 Major depressive disorder, single episode, unspecified; F41.9 Anxiety disorder, unspecified; Z21 Asymptomatic human immunodeficiency virus [HIV] infection status; G40.909 Epilepsy, unspecified, not intractable, without status epilepticus; F39 Unspecified mood [affective] disorder; J45.909 Unspecified asthma, uncomplicated; K59.03 Drug induced constipation; T40.2X5A Adverse effect of other opioids, initial encounter; Z76.5 Malingerer [conscious simulation]

== ENCOUNTER 2016-09-02 10:33 | Inpatient (IN) | payer MEDICAID ==
[2016-09-02 12:28] VITALS: BMI 34.7
[2016-09-02] MEDS ORDERED: Benzocaine/Menthol (Cepacol) Lozenge PO PRN (13:31)
[2016-09-02] MEDS ORDERED: Simethicone 80 mg Chewtab PO PRN (13:41)
[2016-09-02 14:25] VITALS: RESP 20
[2016-09-02] MEDS: oxyCODONE 20 mg ER Tab (oxyCONTIN) PO SCH (17:20)
[2016-09-02] MEDS ORDERED: Docusate-Senna 50 mg-8.6 mg Tab PO SCH (22:00)
[2016-09-03] MEDS: oxyCODONE 20 mg ER Tab (oxyCONTIN) PO SCH ×3 (00:41→16:29)
--- NOTE | 2016-09-03 07:04 | CP.PCM.HP ---
History of Present Illness - History of Present Illness History of Present Illness: 41 yr old M admitted to TCU for rehabilitation s/p total left ankle replacement- POD # 6. Patient has PMHx of poly-substance abuse, seizures, HIV, and chronic back and left foot ankle pain. Patient is stable from podiatry standpoint. Neurology is on consult, increased Keppra to 1,250mg PO BID. Pain management has re-assessed patient and adjusted pain medications. Patient is displaying drug seeking behavior. PMD: Dr. Yakelin Shea Podiatry: Dr. Liu Pharmacy: [facility] PMHx: HTN, HIV, Poly-substance abuse, Seizure disorder, Mood disorder, Asthma, chronic back and left foot ankle pain PSHx: Total Left Ankle Replacement (08/28/16), Multiple left foot and ankle surgeries, Appendectomy Social: At this time denies TOB, ETOH, or Drug use Allergies: NKDA Home Meds: See Med List Present on Admission - Present on Admission Any Indicators Present on Admission: No History of DVT/PE: No History of Uncontrolled Diabetes: No Urinary Catheter: No Decubitus Ulcer Present: No Review of Systems - Review of Systems All systems: reviewed and no additional remarkable complaints except (for what is mentioned in the HPI) Past Patient History - Infectious Disease Hx of Infectious Diseases: None - Past Medical History & Family History Past Medical History?: Yes - Past Social History Smoking Status: Never Smoked - CARDIAC Hx Cardiac Disorders: Yes Hx Congestive Heart Failure: Yes Hx Hypertension: Yes - PULMONARY Hx Respiratory Disorders: Yes Hx Asthma: Yes - NEUROLOGICAL Hx Neurological Disorder: Yes Hx Dementia: Yes Hx Dizziness: Yes Hx Seizures: Yes (EPILEPSY) - HEENT Hx HEENT Problems: No - RENAL Hx Chronic Kidney Disease: No - ENDOCRINE/METABOLIC Hx Endocrine Disorders: No - HEMATOLOGICAL/ONCOLOGICAL Hx Blood Disorders: Yes Hx AIDS: Yes Hx Human Immunodeficiency Virus (HIV): Yes - INTEGUMENTARY Hx Dermatological Problems: No - MUSCULOSKELETAL/RHEUMATOLOGICAL Hx Musculoskeletal Disorders: Yes Hx Arthritis: Yes Hx Back Pain: Yes Hx Falls: Yes Hx Fractures: Yes Hx Osteoporosis: Yes Hx Rhabdomyolysis: Yes Hx Unsteady Gait: Yes Other/Comment: LIMIT JOINT MOTION - GASTROINTESTINAL Hx Gastrointestinal Disorders: No Hx Gastroesophageal Reflux: Yes - GENITOURINARY/GYNECOLOGICAL Hx Genitourinary Disorders: No - PSYCHIATRIC Hx Psychophysiologic Disorder: Yes Hx Anxiety: Yes Hx Bipolar Disorder: Yes Hx Depression: Yes Hx Panic Symptoms: Yes Hx Schizophrenia: Yes Hx Substance Use: No Other/Comment: OVERDOSE - SURGICAL HISTORY Hx Surgeries: Yes Hx Appendectomy: Yes Hx Musculoskeletal Surgery: Yes (BUNIONECTOMY LEFT X3) Hx Orthopedic Surgery: Yes (LEFT LEG) Other/Comment: left foot with metal implant. 08/29/16 left total hip replacement - ANESTHESIA Hx Anesthesia: Yes Hx Anesthesia Reactions: No Hx Malignant Hyperthermia: No Meds Allergies/Adverse Reactions: Allergies Allergy/AdvReac Type Severity Reaction Status Date / Time No Known Allergies Allergy Verified 09/02/16 12:29 Physical Exam - Constitutional Appears: Non-toxic, No Acute Distress - Head Exam Head Exam: ATRAUMATIC, NORMOCEPHALIC - Eye Exam Eye Exam: EOMI, PERRL - ENT Exam ENT Exam: Mucous Membranes Moist - Neck Exam Neck exam: Positive for: Full Rom. Negative for: Lymphadenopathy - Respiratory Exam Respiratory Exam: Clear to Auscultation Bilateral, NORMAL BREATHING PATTERN - Cardiovascular Exam Cardiovascular Exam: REGULAR RHYTHM, +S1, +S2 - GI/Abdominal Exam GI & Abdominal Exam: Normal Bowel Sounds, Soft (obese). absent: Tenderness - Extremities Exam Extremities exam: Positive for: full ROM, normal capillary refill. Negative for : calf tenderness Additional comments: left lower extremity dressing clean/dry/intact - Back Exam Back exam: absent: CVA tenderness (L), CVA tenderness (R) - Neurological Exam Neurological exam: Alert, CN II-XII Intact - Psychiatric Exam Psychiatric exam: Normal Affect (drug seeking behavior), Normal Mood - Skin Skin Exam: Dry, Warm (superficial abrasion on left upper calf) Results - Vital Signs Recent Vital Signs: Last Vital Signs Temp 98.4 F 09/02/16 21:50 Pulse 84 09/02/16 21:50 Resp 20 09/02/16 21:50 BP 126/80 09/02/16 21:50 Pulse Ox 97 09/02/16 21:50 - Labs Result Diagrams: 09/03/16 07:19 09/03/16 07:19 Assessment & Plan - Assessment and Plan (Free Text) Assessment: 41 yr old M admitted to TCU for rehabilitation s/p total left ankle replacement- POD # 6. Patient has PMHx of poly-substance abuse, seizures, HIV, and chronic back and left foot ankle pain. Patient is stable from podiatry standpoint. Neurology is on consult, increased Keppra to 1,250mg PO BID. Pain management has re-assessed patient. Patient is displaying drug seeking behavior. 1. Left ankle total replacement POD #6 -patient stable from podiatry standpoint -pain management Oxycodone HCl 20mg PO Q8, Toradol 30mg IV Q6 PRN pain moderate (4-7), Dilaudid 6mg PO Q4 PRN severe pain (8-10) -Day 6 Ancef 1gram Q8 -Pt eval recommendations of TCU, will transfer today -incentive spirometer -CBC and BMP stable (09/03/16) 2. HTN -controlled, chronic -continue Valsartan 160mg PO Daily -continue HCTZ 12.5mg PO Daily -monitor BP 3. Asthma -stable, chronic -continue Advair 1 puff q12 4. Seizure disorder -stable, chronic -per neurology, increased Keppra to 1,250mg PO Q12 -Neurology consult appreciated: Dr. Diana -f/u EEG report 5. Asymptomatic HIV -Absolute CD4 count/CD8 count : 584/433 on 10/14/15 -continue home med: Complera 200-25-300 Daily 6. Mood disorder -continue Risperdal 2mg PO QHS -continue Remeron 30mg PO QHS -Xanax 1mg PO Q8 7. DVT prophylaxis -SCD's -Lovenox 40mg sc daily 8. Diet -Regular
[2016-09-03 07:27] LABS: HEMATOCRIT 36.9 % (35.0-51.0); MEAN CELL VOLUME 88.4 fl (80.0-94.0); MEAN CORPUSCULAR HEMOGLOBIN 28.8 pg (27.0-31.0); MEAN CORPUSCULAR HGB CONC 32.6 g/dL (33.0-37.0); RED CELL DISTRIBUTION WIDTH 13.1 % (11.5-14.5); WHITE BLOOD COUNT 8.6 K/uL (4.8-10.8)
[2016-09-03 08:04] LABS: BLOOD UREA NITROGEN 13 mg/dl (9-20); CALCIUM 8.7 mg/dL (8.4-10.2); CARBON DIOXIDE 29 mmol/L (22-30); CHLORIDE 102 mmol/L (98-107); GFR AFRICAN-AMERICAN > 60; GLUCOSE,RANDOM 95 mg/dL (75-110); POTASSIUM 3.4 MMOL/L (3.6-5.0); SODIUM 141 mmol/l (132-148)
[2016-09-03] MEDS: Enoxaparin 40 mg Syringe SC SCH (08:44)
--- NOTE | 2016-09-03 09:55 | CP.PCM.PN ---
Subjective - Date & Time of Evaluation Date of Evaluation: 09/03/16 Time of Evaluation: 06:45 - Subjective Subjective: 41 y/o male seen at bedside today for POD#6 of left total ankle arthroplasty. Patient has been transferred to TCU. Patient states he is still in constant pain in the left lower extremity. Patient says he cannot feel anything in his legs or toes because of the pain. Patient denies getting any relief from the pain pills, but says that the pain injections help. Objective - Vital Signs/Intake and Output Vital Signs (last 24 hours): Temp Pulse Resp BP Pulse Ox 98.2 F 91 H 20 100/62 96 09/03/16 08:22 09/03/16 08:22 09/03/16 08:22 09/03/16 08:22 09/03/16 08:22 - Medications Medications: Current Medications Acetaminophen (Tylenol 325mg Tab) 650 mg PO Q6 PRN PRN Reason: Fever >100.4 F Alprazolam (Xanax) 1 mg PO Q8 [facility] Last Admin: 09/03/16 08:45 Dose: 1 mg Benzocaine/Menthol (Cepacol Sore Throat) 1 kenny PO Q3 PRN PRN Reason: Sore Throat Enoxaparin Sodium (Lovenox) 40 mg SC DAILY [facility] PRN Reason: Protocol Last Admin: 09/03/16 08:44 Dose: 40 mg Hydromorphone HCl (Dilaudid) 6 mg PO Q4 PRN PRN Reason: Pain, severe (8-10) Last Admin: 09/03/16 05:12 Dose: 6 mg Ketorolac Tromethamine (Toradol) 30 mg IM Q6 PRN PRN Reason: Pain, moderate (4-7) Last Admin: 09/02/16 18:52 Dose: 30 mg Lactulose (Enulose) 10 gm PO DAILY PRN PRN Reason: Constipation Levetiracetam (Keppra) 1,250 mg PO BID [facility] Last Admin: 09/03/16 08:44 Dose: 1,250 mg Mirtazapine (Remeron) 30 mg PO HS [facility] Last Admin: 09/02/16 21:23 Dose: 30 mg Oxycodone HCl (Oxycontin Extended Release Tab) 20 mg PO Q8 [facility] Last Admin: 06/22/17 08:46 Dose: 20 mg Pregabalin (Lyrica) 50 mg PO TID [facility] Last Admin: 09/03/16 08:45 Dose: 50 mg Risperidone (Risperdal Tab) 2 mg PO DAILY@2100 [facility] Last Admin: 09/02/16 21:23 Dose: 2 mg Senna/Docusate Sodium (Senokot S 50 Mg-8.6 Mg) 1 tab PO HS [facility] Last Admin: 09/02/16 21:23 Dose: 1 tab Simethicone (Mylicon Chew Tab) 80 mg PO TID PRN PRN Reason: Flatulence Last Admin: 09/03/16 08:46 Dose: 80 mg Valsartan (Diovan) 160 mg PO DAILY [facility] Last Admin: 09/03/16 08:44 Dose: 160 mg Zolpidem Tartrate (Ambien) 5 mg PO HS PRN PRN Reason: Insomnia - Labs Labs: 09/03/16 07:19 09/03/16 07:19 - Constitutional Appears: Well, Non-toxic, No Acute Distress - Extremities Exam Additional comments: Left lower extremity focused exam: Vasc: DP faintly palpable due to edema; PT 2/4. CFT < 3 sec x 5. Moderate non- pitting edema. Temperature gradient WNL. Derm: Surgical incision site appears well-coapted, no dehiscence, no purulence, no drainage, no malodor, sutures intact. Neuro: Unable to assess due to pain - Neurological Exam Neurological Exam: Alert, Awake, Oriented x3 Assessment and Plan - Assessment and Plan (Free Text) Assessment: 41 y/o male 6 days s/p Left total ankle replacement by Dr. Liu Plan: Patient seen and evaluated at bedside Discussed plan with Dr. Liu Chart reviewed Pt transferred to TCU for rehab Discussed plan with Dr. Beal, who informed us that patient has long history of high dose pain medication use and high pain tolerance c/w percocet 30 mg, Dilaudid 6 mg po q4 severe pain c/w left lower extremity elevation, ice behind the knee c/w DVT prophylaxis Lovenox f/u PT recommendations Continue nonweight bearing to left lower extremity Stable from podiatry standpoint.
[2016-09-03] MEDS: GENTAMICIN 0.1% TOP SCH (17:24)
--- NOTE | 2016-09-03 19:34 | CON ---
DATE: 09/03/2016 REASON FOR THE CONSULTATION: Seizures. CHIEF COMPLAINT: The patient was admitted to transitional care unit for his left foot fracture, status post internal fixation. From neurological point of view, I was called in to evaluate him for his seizures. HISTORY OF PRESENT ILLNESS: The patient is a 41-year-old moderately obese right -handed male with known history of seizures for the last 5 months, being treated with Keppra. When he had seizures, the Keppra was subtherapeutic range and the medication dose was increased as per my advice to 1250 mg twice a day. Ever since the medication was increased, the seizure has not reoccurred and the patient has been doing well and tolerating with the high dose. PAST MEDICAL HISTORY: Hypertension, HIV, polysubstance abuse, seizure disorder , mood disorder, asthma, chronic lower back pain and status post trauma, left foot fracture. PAST SURGICAL HISTORY: Left ankle replacement on 08/28/2016, appendectomy in the past. ALLERGIES: No known allergies. REVIEW OF SYSTEMS: As per H and P. MEDICATIONS: Zolpidem, Benadryl, Colace, Dilaudid, Diovan, gentamicin. PHYSICAL EXAMINATION: VITAL SIGNS: Blood pressure 120/66, mean arterial pressure of 95, respiratory rate 16, temperature afebrile. NECK: Supple. No carotid bruit. HEART: Sounds are regular. CHEST: Fair air entry. EXTREMITIES: Left leg under cast with a post-surgical dressing. NEUROLOGIC EXAMINATION: MENTAL STATUS EXAMINATION: The patient is awake, alert, oriented to person, place, and time. His speech is clear. Naming, repetition, fluency, comprehension all within normal. CRANIAL NERVE EXAMINATION: Visual field intact, pupil reactive to light. Extraocular movement normal. No nystagmus. No facial sensory deficit. No facial asymmetry. Hearing is normal. Tongue is midline. Good gag. MOTOR EXAMINATION: Outstretched hands with eyes closed, no drift noted. Power is symmetric on either side. Left leg, inability to move all toes. He felt numbness from his knee down. Right leg is normal. DEEP TENDON REFLEXES: Absent. Plantars are downgoing on his right side. COORDINATION: [id number] test is intact. GAIT: Deferred at this time. CONCLUSION: Upon reviewing his history and neurological examination, the patient has been presenting with seizure disorder, which has been controlled with titrating dose of Keppra 1250 mg twice a day. RECOMMENDATION: I would consider him to continue the present dose of the medication. No further workup is needed. The patient, when medically stable following discharge, patient is recommended to have a followup visit with me as outpatient. Alexis Diana MD cc: [id number] TT: 09/03/2016 19:33:36 Confirmation # [id number] Dictation # [id number] MTDD
[2016-09-04] MEDS: Docusate-Senna 50 mg-8.6 mg Tab PO SCH ×2 (00:54→21:41)
[2016-09-04] MEDS: oxyCODONE 20 mg ER Tab (oxyCONTIN) PO SCH ×3 (00:55→16:07)
--- NOTE | 2016-09-04 07:00 | CP.PCM.PN ---
Subjective - Date & Time of Evaluation Date of Evaluation: 09/04/16 Time of Evaluation: 06:30 - Subjective Subjective: 41 y/o male seen at bedside today for POD #7 of left total ankle arthroplasty. Patient is now experiencing a rash as of yesterday at the proximal lateral aspect of his mid calf. Patient denies itching in the area of the rash. Patient denies any acute overnight events. Patient states he is still in constant pain and wants the medicine team to give him the pain injections. Patient denies F/N/ V/C/SOB. Objective - Vital Signs/Intake and Output Vital Signs (last 24 hours): Temp Pulse Resp BP Pulse Ox 98.2 F 90 20 106/61 98 09/03/16 20:26 09/03/16 20:26 09/03/16 20:26 09/03/16 20:26 09/03/16 20:26 - Medications Medications: Current Medications Acetaminophen (Tylenol 325mg Tab) 650 mg PO Q6 PRN PRN Reason: Fever >100.4 F Alprazolam (Xanax) 1 mg PO Q8 [facility] Last Admin: 09/04/16 01:00 Dose: Not Given Benzocaine/Menthol (Cepacol Sore Throat) 1 kenny PO Q3 PRN PRN Reason: Sore Throat Diphenhydramine HCl (Benadryl) 25 mg PO Q6 PRN PRN Reason: Rash Docusate Sodium (Colace) 100 mg PO TID [facility] Last Admin: 09/03/16 16:31 Dose: 100 mg Enoxaparin Sodium (Lovenox) 40 mg SC DAILY [facility] PRN Reason: Protocol Last Admin: 09/03/16 08:44 Dose: 40 mg Gentamicin Sulfate (Gentamicin 0.1%) 1 applic TOP BID [facility] Last Admin: 09/03/16 17:24 Dose: Not Given Hydromorphone HCl (Dilaudid) 6 mg PO Q4 PRN PRN Reason: Pain, severe (8-10) Last Admin: 09/04/16 06:21 Dose: 6 mg Ketorolac Tromethamine (Toradol) 30 mg IM Q6 PRN PRN Reason: Pain, moderate (4-7) Last Admin: 09/02/16 18:52 Dose: 30 mg Lactulose (Enulose) 10 gm PO DAILY PRN PRN Reason: Constipation Levetiracetam (Keppra) 1,250 mg PO BID [facility] Last Admin: 09/03/16 16:30 Dose: 1,250 mg Mirtazapine (Remeron) 30 mg PO HS [facility] Last Admin: 09/04/16 00:51 Dose: 30 mg Oxycodone HCl (Oxycontin Extended Release Tab) 20 mg PO Q8 [facility] Last Admin: 09/04/16 00:55 Dose: 20 mg Pregabalin (Lyrica) 50 mg PO TID [facility] Last Admin: 09/03/16 16:29 Dose: 50 mg Risperidone (Risperdal Tab) 2 mg PO DAILY@2100 [facility] Last Admin: 09/04/16 00:53 Dose: 2 mg Senna/Docusate Sodium (Senokot S 50 Mg-8.6 Mg) 2 tab PO HS [facility] Last Admin: 09/04/16 00:54 Dose: 2 tab Simethicone (Mylicon Chew Tab) 80 mg PO TID PRN PRN Reason: Flatulence Last Admin: 09/03/16 08:46 Dose: 80 mg Valsartan (Diovan) 80 mg PO DAILY [facility] Zolpidem Tartrate (Ambien) 5 mg PO HS PRN PRN Reason: Insomnia - Labs Labs: 09/03/16 07:19 09/03/16 07:19 - Constitutional Appears: Well, Non-toxic, No Acute Distress - Extremities Exam Additional comments: Left lower extremity focused exam: Vasc: DP and PT pulses not assessed due to splint dressing. CFT < 3 sec x 5. Moderate non-pitting edema. Temperature gradient WNL. Derm: Rash noted on proximal lateral aspect of calf - serous drainage noted with strikethrough on bandage but not splint. Surgical incision site not assessed due to presence of splint. Neuro: Unable to assess due to pain - Neurological Exam Neurological Exam: Alert, Awake, Oriented x3 - Psychiatric Exam Psychiatric exam: Normal Affect, Normal Mood Assessment and Plan - Assessment and Plan (Free Text) Assessment: 41 y/o male 7 days s/p left total ankle replacement by Dr. Liu Plan: Patient seen and evaluated at bedside Discussed plan with Dr. Liu Chart and vitals reviewed Removed Webril and Kerlix dressing from proximal aspect of lateral calf and applied topical Gentamicin cream to rash. c/w percocet 30 mg, Dilaudid 6 mg po q4 severe pain c/w left lower extremity elevation, ice behind the knee c/w DVT prophylaxis Lovenox f/u PT recommendations Continue nonweight bearing to left lower extremity Stable from podiatry standpoint.
[2016-09-04] MEDS: Enoxaparin 40 mg Syringe SC SCH (08:42)
[2016-09-04] MEDS: GENTAMICIN 0.1% TOP SCH ×2 (08:45→18:03)
[2016-09-04] MEDS: COMPLERA PO SCH (18:03)
[2016-09-05] MEDS: Lactulose 10 gm/15 ml Syrup PO PRN (00:59)
[2016-09-05] MEDS: oxyCODONE 20 mg ER Tab (oxyCONTIN) PO SCH ×3 (00:59→16:14)
[2016-09-05] MEDS: Enoxaparin 40 mg Syringe SC SCH (08:34)
[2016-09-05] MEDS: GENTAMICIN 0.1% TOP SCH ×2 (08:37→17:16)
[2016-09-05] MEDS: COMPLERA PO SCH (10:51)
--- NOTE | 2016-09-05 12:33 | CP.PCM.PN ---
Subjective - Date & Time of Evaluation Date of Evaluation: 09/05/16 Time of Evaluation: 08:35 - Subjective Subjective: 41 year old male patient seen at bedside today for POD#8 left total ankle arthroplasty. Patient denies any itching to his rash on the left calf. Patient denies any acute events overnight. Patient reports persistent pain to entire left lower extremity. Patient denies N/V/F/SOB. No other pedal complaints. Objective - Vital Signs/Intake and Output Vital Signs (last 24 hours): Temp Pulse Resp BP Pulse Ox 97.5 F L 70 20 109/69 99 09/05/16 08:25 09/05/16 08:25 09/05/16 08:25 09/05/16 08:25 09/05/16 08:25 - Medications Medications: Current Medications Acetaminophen (Tylenol 325mg Tab) 650 mg PO Q6 PRN PRN Reason: Fever >100.4 F Alprazolam (Xanax) 1 mg PO Q8 [facility] Last Admin: 09/05/16 08:36 Dose: 1 mg Benzocaine/Menthol (Cepacol Sore Throat) 1 kenny PO Q3 PRN PRN Reason: Sore Throat Diphenhydramine HCl (Benadryl) 25 mg PO Q6 PRN PRN Reason: Rash Docusate Sodium (Colace) 100 mg PO TID [facility] Last Admin: 09/05/16 08:37 Dose: 100 mg Enoxaparin Sodium (Lovenox) 40 mg SC DAILY [facility] PRN Reason: Protocol Last Admin: 09/05/16 08:34 Dose: 40 mg Gentamicin Sulfate (Gentamicin 0.1%) 1 applic TOP BID [facility] Home Med (Emtricita/Rilpivir/Tenofovir) 1 tab PO DAILY [facility] Last Admin: 09/05/16 10:51 Dose: Not Given Hydromorphone HCl (Dilaudid) 6 mg PO Q4 PRN PRN Reason: Pain, severe (8-10) Last Admin: 09/05/16 09:59 Dose: 6 mg Ketorolac Tromethamine (Toradol) 30 mg IM Q6 PRN PRN Reason: Pain, moderate (4-7) Last Admin: 09/04/16 15:09 Dose: 30 mg Lactulose (Enulose) 10 gm PO DAILY PRN PRN Reason: Constipation Last Admin: 09/05/16 00:59 Dose: 10 gm Levetiracetam (Keppra) 1,250 mg PO BID [facility] Last Admin: 09/05/16 08:34 Dose: 1,250 mg Mirtazapine (Remeron) 30 mg PO HS [facility] Last Admin: 09/04/16 21:41 Dose: 30 mg Oxycodone HCl (Oxycontin Extended Release Tab) 20 mg PO Q8 [facility] Last Admin: 09/05/16 08:36 Dose: 20 mg Pregabalin (Lyrica) 50 mg PO TID [facility] Last Admin: 09/05/16 08:36 Dose: 50 mg Risperidone (Risperdal Tab) 2 mg PO DAILY@2100 [facility] Last Admin: 09/04/16 20:43 Dose: 2 mg Senna/Docusate Sodium (Senokot S 50 Mg-8.6 Mg) 2 tab PO HS [facility] Last Admin: 09/04/16 21:41 Dose: 2 tab Simethicone (Mylicon Chew Tab) 80 mg PO TID PRN PRN Reason: Flatulence Last Admin: 09/03/16 08:46 Dose: 80 mg Valsartan (Diovan) 80 mg PO DAILY [facility] Last Admin: 09/05/16 08:35 Dose: 80 mg Zolpidem Tartrate (Ambien) 5 mg PO HS PRN PRN Reason: Insomnia - Labs Labs: 09/03/16 07:19 09/03/16 07:19 - Constitutional Appears: Well, Non-toxic, No Acute Distress - Extremities Exam Additional comments: Left lower extremity focused exam: Posterior splint is clean, dry, and intact to LLE. Vasc: CFT < 3 sec x 5. Derm: Rash noted on proximal lateral aspect of calf Surgical incision site not assessed due to presence of splint. - Neurological Exam Neurological Exam: Alert, Awake, Oriented x3 - Psychiatric Exam Psychiatric exam: Normal Affect, Normal Mood Assessment and Plan - Assessment and Plan (Free Text) Assessment: 41 year old male POD#8 s/p left total ankle arthroplasty Plan: Patient seen and evaluated at bedside Discussed plan with Dr. Liu Chart and vitals reviewed Posterior splint left clean, dry, and intact c/w percocet 30 mg, Dilaudid 6 mg po q4 severe pain c/w left lower extremity elevation, ice behind the knee c/w DVT prophylaxis Lovenox f/u PT recommendations Continue nonweight bearing to left lower extremity Stable from podiatry standpoint.
[2016-09-05] MEDS: Docusate-Senna 50 mg-8.6 mg Tab PO SCH (21:31)
[2016-09-06] MEDS: oxyCODONE 20 mg ER Tab (oxyCONTIN) PO SCH ×3 (02:05→17:37)
[2016-09-06] MEDS: GENTAMICIN 0.1% TOP SCH ×2 (08:36→17:35)
[2016-09-06] MEDS: Enoxaparin 40 mg Syringe SC SCH (08:40)
[2016-09-06] MEDS: COMPLERA PO SCH (08:40)
[2016-09-06] MEDS: Docusate-Senna 50 mg-8.6 mg Tab PO SCH (22:02)
[2016-09-07] MEDS: oxyCODONE 20 mg ER Tab (oxyCONTIN) PO SCH ×3 (04:51→17:27)
--- NOTE | 2016-09-07 08:00 | CP.PCM.PN ---
Subjective - Date & Time of Evaluation Date of Evaluation: 09/07/16 Time of Evaluation: 12:53 - Subjective Subjective: 41 year old male patient seen at bedside today for POD#9 left total ankle arthroplasty. Patient denies any itching to his rash on the left calf. Patient denies any acute events overnight. Patient reports persistent pain to entire left lower extremity. Patient denies N/V/F/SOB. No other pedal complaints. Objective - Vital Signs/Intake and Output Vital Signs (last 24 hours): Temp Pulse Resp BP Pulse Ox 97.7 F 79 20 117/67 98 09/06/16 21:00 09/06/16 21:00 09/06/16 21:00 09/06/16 21:00 09/06/16 21:00 - Medications Medications: Current Medications Acetaminophen (Tylenol 325mg Tab) 650 mg PO Q6 PRN PRN Reason: Fever >100.4 F Alprazolam (Xanax) 1 mg PO Q8 [facility] Last Admin: 09/07/16 04:51 Dose: Not Given Benzocaine/Menthol (Cepacol Sore Throat) 1 kenny PO Q3 PRN PRN Reason: Sore Throat Diphenhydramine HCl (Benadryl) 25 mg PO Q6 PRN PRN Reason: Rash Docusate Sodium (Colace) 100 mg PO TID [facility] Last Admin: 09/06/16 17:38 Dose: 100 mg Enoxaparin Sodium (Lovenox) 40 mg SC DAILY [facility] PRN Reason: Protocol Last Admin: 09/06/16 08:40 Dose: 40 mg Gentamicin Sulfate (Gentamicin 0.1%) 1 applic TOP BID [facility] Last Admin: 09/06/16 17:35 Dose: Not Given Home Med (Emtricita/Rilpivir/Tenofovir) 1 tab PO DAILY [facility] Last Admin: 09/06/16 08:40 Dose: 1 tab Hydromorphone HCl (Dilaudid) 6 mg PO Q4 PRN PRN Reason: Pain, severe (8-10) Last Admin: 09/07/16 05:37 Dose: 6 mg Ketorolac Tromethamine (Toradol) 30 mg IM Q6 PRN PRN Reason: Pain, moderate (4-7) Last Admin: 09/06/16 11:47 Dose: 30 mg Lactulose (Enulose) 10 gm PO DAILY PRN PRN Reason: Constipation Last Admin: 09/05/16 00:59 Dose: 10 gm Levetiracetam (Keppra) 1,250 mg PO BID [facility] Last Admin: 09/06/16 17:39 Dose: 1,250 mg Mirtazapine (Remeron) 30 mg PO HS [facility] Last Admin: 09/06/16 22:02 Dose: 30 mg Oxycodone HCl (Oxycontin Extended Release Tab) 20 mg PO Q8 [facility] Last Admin: 09/07/16 04:51 Dose: Not Given Pregabalin (Lyrica) 50 mg PO TID [facility] Last Admin: 09/06/16 17:37 Dose: 50 mg Risperidone (Risperdal Tab) 2 mg PO DAILY@2100 [facility] Last Admin: 09/06/16 22:02 Dose: 2 mg Senna/Docusate Sodium (Senokot S 50 Mg-8.6 Mg) 2 tab PO HS [facility] Last Admin: 09/06/16 22:02 Dose: 2 tab Simethicone (Mylicon Chew Tab) 80 mg PO TID PRN PRN Reason: Flatulence Last Admin: 09/03/16 08:46 Dose: 80 mg Valsartan (Diovan) 80 mg PO DAILY [facility] Last Admin: 09/06/16 08:41 Dose: 80 mg Zolpidem Tartrate (Ambien) 5 mg PO HS PRN PRN Reason: Insomnia Last Admin: 09/05/16 21:33 Dose: 5 mg - Labs Labs: 09/03/16 07:19 09/03/16 07:19 - Constitutional Appears: Well, Non-toxic, No Acute Distress - Extremities Exam Additional comments: Left lower extremity focused exam: Posterior splint is clean, dry, and intact to LLE. Vasc: CFT < 3 sec x 5. Derm: Rash noted on proximal lateral aspect of calf. Surgical incision site not assessed due to presence of splint Rash appears to be resolving. MSK: Deferred due to post surgical status - Neurological Exam Neurological Exam: Alert, Awake, Oriented x3 - Psychiatric Exam Psychiatric exam: Normal Affect, Normal Mood Assessment and Plan - Assessment and Plan (Free Text) Assessment: 41 year old male seen at bedside 9 days s/p left total ankle replacement Plan: - Patient seen and evaluated at bedside -Plan discussed w/ attending Dr. Liu -Per Dr. Liu, rx for cipro 500 mg po q12 added -c/w daily application of gentamycin topical to rash -PT recommending home with services Podiatry to continue to follow outpatient in house
[2016-09-07] MEDS: COMPLERA PO SCH (08:21)
[2016-09-07] MEDS: Enoxaparin 40 mg Syringe SC SCH (08:21)
[2016-09-07] MEDS: GENTAMICIN 0.1% TOP SCH ×2 (08:27→17:29)
--- NOTE | 2016-09-07 12:26 | CP.PCM.PN ---
Subjective - Date & Time of Evaluation Date of Evaluation: 09/07/16 Time of Evaluation: 12:30 - Subjective Subjective: Patient seen and examined at bedside, in no acute distress, no acute events overnight. Denies chest pain, weakness, dizziness or SOB. Continues to request pain medications immediately after getting a scheduled or PRN dose. Has normal urine output, had bowel movement yesterday. No other concerns or complaints at this time. Objective - Vital Signs/Intake and Output Vital Signs (last 24 hours): Temp Pulse Resp BP Pulse Ox 97.7 F 70 20 105/64 99 09/07/16 08:27 09/07/16 08:27 09/07/16 08:27 09/07/16 08:27 09/07/16 08:27 - Medications Medications: Current Medications Acetaminophen (Tylenol 325mg Tab) 650 mg PO Q6 PRN PRN Reason: Fever >100.4 F Alprazolam (Xanax) 1 mg PO Q8 [facility] Last Admin: 09/07/16 08:20 Dose: 1 mg Benzocaine/Menthol (Cepacol Sore Throat) 1 kenny PO Q3 PRN PRN Reason: Sore Throat Ciprofloxacin (Cipro) 500 mg PO Q12 [facility] Diphenhydramine HCl (Benadryl) 25 mg PO Q6 PRN PRN Reason: Rash Docusate Sodium (Colace) 100 mg PO TID [facility] Last Admin: 09/07/16 08:19 Dose: 100 mg Enoxaparin Sodium (Lovenox) 40 mg SC DAILY [facility] PRN Reason: Protocol Last Admin: 09/07/16 08:21 Dose: 40 mg Gentamicin Sulfate (Gentamicin 0.1%) 1 applic TOP BID [facility] Last Admin: 09/07/16 08:27 Dose: Not Given Home Med (Emtricita/Rilpivir/Tenofovir) 1 tab PO DAILY [facility] Last Admin: 09/07/16 08:21 Dose: 1 tab Hydromorphone HCl (Dilaudid) 6 mg PO Q4 PRN PRN Reason: Pain, severe (8-10) Last Admin: 09/07/16 10:13 Dose: 6 mg Ketorolac Tromethamine (Toradol) 30 mg IM Q6 PRN PRN Reason: Pain, moderate (4-7) Last Admin: 09/06/16 11:47 Dose: 30 mg Lactulose (Enulose) 10 gm PO DAILY PRN PRN Reason: Constipation Last Admin: 09/05/16 00:59 Dose: 10 gm Levetiracetam (Keppra) 1,250 mg PO BID [facility] Last Admin: 09/07/16 08:18 Dose: 1,250 mg Mirtazapine (Remeron) 30 mg PO HS [facility] Last Admin: 09/06/16 22:02 Dose: 30 mg Oxycodone HCl (Oxycontin Extended Release Tab) 20 mg PO Q8 [facility] Last Admin: 09/07/16 08:19 Dose: 20 mg Pregabalin (Lyrica) 50 mg PO TID [facility] Last Admin: 09/07/16 08:20 Dose: 50 mg Risperidone (Risperdal Tab) 2 mg PO DAILY@2100 [facility] Last Admin: 09/06/16 22:02 Dose: 2 mg Senna/Docusate Sodium (Senokot S 50 Mg-8.6 Mg) 2 tab PO HS [facility] Last Admin: 09/06/16 22:02 Dose: 2 tab Simethicone (Mylicon Chew Tab) 80 mg PO TID PRN PRN Reason: Flatulence Last Admin: 09/03/16 08:46 Dose: 80 mg Valsartan (Diovan) 80 mg PO DAILY [facility] Last Admin: 09/07/16 08:18 Dose: 80 mg Zolpidem Tartrate (Ambien) 5 mg PO HS PRN PRN Reason: Insomnia Last Admin: 09/05/16 21:33 Dose: 5 mg - Labs Labs: 09/03/16 07:19 09/03/16 07:19 - Constitutional Appears: No Acute Distress - Head Exam Head Exam: ATRAUMATIC, NORMOCEPHALIC - Eye Exam Eye Exam: EOMI, PERRL - ENT Exam ENT Exam: Mucous Membranes Moist - Neck Exam Neck Exam: Full ROM. absent: Lymphadenopathy - Respiratory Exam Respiratory Exam: Clear to Ausculation Bilateral, NORMAL BREATHING PATTERN - Cardiovascular Exam Cardiovascular Exam: REGULAR RHYTHM, +S1, +S2 - GI/Abdominal Exam GI & Abdominal Exam: Soft (obese). absent: Tenderness - Extremities Exam Extremities Exam: Full ROM (of bilateral upper and right lower extremity; left lower extremity in posterior splint and bandage clean/dry/intact, with normal capillary refill/warm) - Back Exam Back Exam: absent: CVA tenderness (L), CVA tenderness (R) - Neurological Exam Neurological Exam: Alert, Awake, CN II-XII Intact - Psychiatric Exam Psychiatric exam: Normal Mood (drug seeking behavior) - Skin Skin Exam: Dry, Intact, Warm Assessment and Plan - Assessment and Plan (Free Text) Assessment: 41 yr old M admitted to TCU for rehabilitation s/p total left ankle replacement- POD # 10. Patient has PMHx of poly-substance abuse, seizures, HIV, and chronic back and left foot ankle pain. Patient is stable from podiatry standpoint. Neurology evaluated patient, increased Keppra to 1,250mg PO BID. Pain management has re-assessed patient. Patient is stable, tolerating PT/OT, continues displaying drug seeking behavior. 1. Left ankle total replacement POD #10 -patient stable from podiatry standpoint -pain management Oxycodone HCl 20mg PO Q8, Toradol 30mg IV Q6 PRN pain moderate (4-7), Dilaudid 6mg PO Q4 PRN severe pain (8-10) -Ciprofloxacin 500mg PO Q12 -PT recommends: home with services -incentive spirometer -CBC and BMP stable (09/03/16) 2. HTN -controlled, chronic -continue Valsartan 160mg PO Daily -continue HCTZ 12.5mg PO Daily -monitor BP 3. Asthma -stable, chronic -continue Advair 1 puff q12 4. Seizure disorder -stable, chronic -per neurology, increased Keppra to 1,250mg PO Q12 -Neurology consult appreciated: Dr. Diana -f/u EEG report 5. Asymptomatic HIV -Absolute CD4 count/CD8 count : 584/433 on 10/14/15 -continue home med: Complera 200-25-300 Daily 6. Mood disorder -continue Risperdal 2mg PO QHS -continue Remeron 30mg PO QHS -Xanax 1mg PO Q8 7. DVT prophylaxis -SCD's -Lovenox 40mg sc daily 8. Diet -Regular
[2016-09-07] MEDS: Docusate-Senna 50 mg-8.6 mg Tab PO SCH (22:12)
[2016-09-08] MEDS: oxyCODONE 20 mg ER Tab (oxyCONTIN) PO SCH ×3 (00:44→16:19)
--- NOTE | 2016-09-08 06:36 | CP.PCM.PN ---
Subjective - Date & Time of Evaluation Date of Evaluation: 09/08/16 Time of Evaluation: 06:34 - Subjective Subjective: 41 year old male was seen at bedside for POD #10 left total ankle arthoplasty. Patient is AAOx3 and NAD. Patient reports continued pain to his left lower extremity. Patient denies itching to his rash on the left calf, and believes his rash is getting better. Patient denies any acute overnight events. Patient denies n/v/sob/cp/chills or f. Denies of any other pedal complaints. Objective - Vital Signs/Intake and Output Vital Signs (last 24 hours): Temp Pulse Resp BP Pulse Ox 96.8 F L 75 20 125/74 98 09/07/16 20:13 09/07/16 20:13 09/07/16 20:13 09/07/16 20:13 09/07/16 20:13 - Medications Medications: Current Medications Acetaminophen (Tylenol 325mg Tab) 650 mg PO Q6 PRN PRN Reason: Fever >100.4 F Alprazolam (Xanax) 1 mg PO Q8 [facility] Last Admin: 09/08/16 00:44 Dose: 1 mg Benzocaine/Menthol (Cepacol Sore Throat) 1 kenny PO Q3 PRN PRN Reason: Sore Throat Ciprofloxacin (Cipro) 500 mg PO Q12 [facility] Last Admin: 09/07/16 22:14 Dose: 500 mg Diphenhydramine HCl (Benadryl) 25 mg PO Q6 PRN PRN Reason: Rash Docusate Sodium (Colace) 100 mg PO TID [facility] Last Admin: 09/07/16 17:30 Dose: 100 mg Enoxaparin Sodium (Lovenox) 40 mg SC DAILY [facility] PRN Reason: Protocol Last Admin: 09/07/16 08:21 Dose: 40 mg Gentamicin Sulfate (Gentamicin 0.1%) 1 applic TOP BID [facility] Last Admin: 09/07/16 17:29 Dose: Not Given Home Med (Emtricita/Rilpivir/Tenofovir) 1 tab PO DAILY [facility] Last Admin: 09/07/16 08:21 Dose: 1 tab Hydromorphone HCl (Dilaudid) 4 mg PO Q4 PRN PRN Reason: Pain, severe (8-10) Last Admin: 09/08/16 05:19 Dose: 4 mg Hydromorphone HCl (Dilaudid) 2 mg PO Q4 PRN PRN Reason: Pain, severe (8-10) Ketorolac Tromethamine (Toradol) 30 mg IM Q6 PRN PRN Reason: Pain, moderate (4-7) Last Admin: 09/07/16 12:32 Dose: 30 mg Lactulose (Enulose) 10 gm PO DAILY PRN PRN Reason: Constipation Last Admin: 09/05/16 00:59 Dose: 10 gm Levetiracetam (Keppra) 1,250 mg PO BID [facility] Last Admin: 09/07/16 17:28 Dose: 1,250 mg Mirtazapine (Remeron) 30 mg PO HS [facility] Last Admin: 09/07/16 22:12 Dose: 30 mg Oxycodone HCl (Oxycontin Extended Release Tab) 20 mg PO Q8 [facility] Last Admin: 09/08/16 00:44 Dose: 20 mg Pregabalin (Lyrica) 50 mg PO TID [facility] Last Admin: 09/07/16 17:27 Dose: 50 mg Risperidone (Risperdal Tab) 2 mg PO DAILY@2100 [facility] Last Admin: 09/07/16 22:12 Dose: 2 mg Senna/Docusate Sodium (Senokot S 50 Mg-8.6 Mg) 2 tab PO HS [facility] Last Admin: 09/07/16 22:12 Dose: 2 tab Simethicone (Mylicon Chew Tab) 80 mg PO TID PRN PRN Reason: Flatulence Last Admin: 09/03/16 08:46 Dose: 80 mg Valsartan (Diovan) 80 mg PO DAILY [facility] Last Admin: 09/07/16 08:18 Dose: 80 mg Zolpidem Tartrate (Ambien) 5 mg PO HS PRN PRN Reason: Insomnia Last Admin: 09/05/16 21:33 Dose: 5 mg - Labs Labs: 09/03/16 07:19 09/03/16 07:19 - Constitutional Appears: Well, Non-toxic, No Acute Distress - Extremities Exam Additional comments: Left lower extremity focused exam: Vasc: DP faintly palpable due to edema; PT pulse palpable 2/4. CFT < 3 sec x 5. Moderate non-pitting edema. Temperature gradient WNL. Derm: Surgical incision site appears well-coapted, no dehiscence, no purulence, no drainage, no malodor, sutures intact. Maculopapular plaque noted to proximal lateral calf with mild green-yellow colored drainage, appears to be improving. Neuro: Unable to assess due to pain Ortho: Tenderness to palpation of left lower extremity - Neurological Exam Neurological Exam: Alert, Awake, Oriented x3 - Psychiatric Exam Psychiatric exam: Normal Affect, Normal Mood Assessment and Plan - Assessment and Plan (Free Text) Assessment: 41 year old male s/p 10 days left total ankle replacement. Plan: -Patient was seen and evaluated. -Discussed plan in detail with attending Dr. Liu -C/W Ciprofloxacin -Applied gentamicin to rash and dressed LLE with Telfa, adaptic, ABD, kerlix, webril, PAWAN wrap, and posterior splint -C/W daily application of gentamicin topical rash -PT recommending home with services -Podiatry will continue to follow outpatient in house
[2016-09-08] MEDS: Lactulose 10 gm/15 ml Syrup PO PRN (08:02)
[2016-09-08] MEDS: COMPLERA PO SCH (08:03)
[2016-09-08] MEDS: Enoxaparin 40 mg Syringe SC SCH (08:04)
[2016-09-08] MEDS: GENTAMICIN 0.1% TOP SCH ×2 (08:04→16:22)
[2016-09-08] MEDS: Docusate-Senna 50 mg-8.6 mg Tab PO SCH (21:17)
[2016-09-09] MEDS: oxyCODONE 20 mg ER Tab (oxyCONTIN) PO SCH ×3 (01:29→17:28)
[2016-09-09 07:15] LABS: HEMATOCRIT 37.4 % (35.0-51.0); MEAN CORPUSCULAR HEMOGLOBIN 28.7 pg (27.0-31.0); MEAN CORPUSCULAR HGB CONC 32.6 g/dL (33.0-37.0); RED CELL DISTRIBUTION WIDTH 12.5 % (11.5-14.5); WHITE BLOOD COUNT 6.8 K/uL (4.8-10.8)
[2016-09-09 07:30] LABS: BLOOD UREA NITROGEN 14 mg/dl (9-20); CALCIUM 9.1 mg/dL (8.4-10.2); CARBON DIOXIDE 32 mmol/L (22-30); CHLORIDE 101 mmol/L (98-107); GFR AFRICAN-AMERICAN > 60; GLUCOSE,RANDOM 93 mg/dL (75-110); POTASSIUM 4.6 MMOL/L (3.6-5.0); SODIUM 140 mmol/l (132-148)
[2016-09-09 08:08] VITALS: BP 129/94; PULSE 69; TEMP 98.1; O2SAT 97
--- NOTE | 2016-09-09 08:17 | CP.PCM.DIS ---
Provider - Provider Date of Admission: 09/02/16 12:25 Attending physician: Saniya Zuñiga MD Primary care physician: Yakelin Shea MD Consults: Dr. Liu-Orthopedic, Dr. Beal-pain management Time Spent in preparation of Discharge (in minutes): 30 Diagnosis - Discharge Diagnosis (1) History of total ankle replacement Status: Acute Priority: Low (2) History of seizure Status: Chronic Priority: Low Onset Date: 09/19/14 Hospital Course - Lab Results Lab Results: Most Recent Lab Values WBC 6.8 K/uL (4.8-10.8) 09/09/16 07:06 RBC 4.25 Mil/uL (4.40-5.90) L 09/09/16 07:06 Hgb 12.2 g/dL (12.0-18.0) 09/09/16 07:06 Hct 37.4 % (35.0-51.0) 09/09/16 07:06 MCV 88.0 fl (80.0-94.0) 09/09/16 07:06 MCH 28.7 pg (27.0-31.0) 09/09/16 07:06 MCHC 32.6 g/dL (33.0-37.0) L 09/09/16 07:06 RDW 12.5 % (11.5-14.5) 09/09/16 07:06 Plt Count 270 K/uL (130-400) 09/09/16 07:06 Sodium 140 mmol/l (132-148) 09/09/16 07:06 Potassium 4.6 MMOL/L (3.6-5.0) 09/09/16 07:06 Chloride 101 mmol/L (98-107) 09/09/16 07:06 Carbon Dioxide 32 mmol/L (22-30) H 09/09/16 07:06 Anion Gap 12 (10-20) 09/09/16 07:06 BUN 14 mg/dl (9-20) 09/09/16 07:06 Creatinine 1.0 mg/dL (0.8-1.5) 09/09/16 07:06 Est GFR ( Amer) > 60 09/09/16 07:06 Est GFR (Non-Af Amer) > 60 09/09/16 07:06 Random Glucose 93 mg/dL (75-110) 09/09/16 07:06 Calcium 9.1 mg/dL (8.4-10.2) 09/09/16 07:06 - Hospital Course Hospital Course: 41 yr old M admitted to TCU for rehabilitation s/p total left ankle replacement- POD # 12. Patient has PMHx of poly-substance abuse, seizures, HIV, and chronic back and left foot ankle pain. Patient is stable from podiatry standpoint. Neurology evaluated patient, increased Keppra to 1,250mg PO BID. Pain management has re-assessed patient. Patient is stable, was discharged with Rx for Valsartan 80mg PO QD, Keppra 1,250mg PO BID, Dilaudid 2mg PO Q4 PRN pain ( disp #30 tabs), Oxycodone 20mg PO Q8 PRN pain (disp #20 tabs), discontinue Valsartan 160mg PO QD, discontinue HCTZ 12.5mg QD, discontinue Keppra 1,000mg PO BID, resume rest of home medications, [facility] was called and confirmed patient last filled his prescriptions on 09/01/2016. Patient will call and make appt to follow up with neurology Dr. Diana in 2-3 weeks, Orthopedics Dr. Liu in podiatry clinic (September 21 ), and his PMD Dr. Ferreira in 1 week , will have home services. - Date & Time of H&P Date of H&P: 09/03/16 Time of H&P: 07:04 Discharge Exam - Head Exam Head Exam: ATRAUMATIC, NORMOCEPHALIC - Eye Exam Eye Exam: EOMI, PERRL - ENT Exam ENT Exam: Mucous Membranes Moist - Neck Exam Neck exam: Full Rom (no lymphadenopathy) - Respiratory Exam Respiratory Exam: Clear to PA & Lateral, NORMAL BREATHING PATTERN - Cardiovascular Exam Cardiovascular Exam: REGULAR RHYTHM, +S1, +S2 - GI/Abdominal Exam GI & Abdominal Exam: Normal Bowel Sounds, Soft (obese). absent: Distended, Tenderness - Extremities Exam Extremities exam: full ROM (of bilateral upper and right lower extremity, left lower extremity dressing clean/dry/intact) - Back Exam Back exam: absent: CVA tenderness (L), CVA tenderness (R) - Neurological Exam Neurological exam: Alert, CN II-XII Intact, Oriented x3 - Psychiatric Exam Psychiatric exam: Normal Affect, Normal Mood (displays drug seeking behavior) - Skin Skin Exam: Dry, Intact, Warm Discharge Plan - Follow Up Plan Condition: GOOD Disposition: HOME/ ROUTINE Patient education suggested?: Yes Additional Instructions: -Follow up with neurology Dr. Diana in 2-3 weeks -Follow up with Orthopedics Dr. Liu in podiatry clinic (September 21 ) -Call and make appt with your PMD Dr. Ferreira in 1 week -discontinue Valsartan 160mg PO QD, discontinue Hydrochlorothiazide 12.5 mg PO QD, discontinue Keppra 1,000 mg PO BID -start Valsartan 80mg PO QD, start Keppra 1,250mg PO BID -take rest of home meds as prescribed Referrals: Denys Liu DPM [Staff Provider] - Yakelin Shea MD [Primary Care Provider] -
[2016-09-09] MEDS: COMPLERA PO SCH (08:32)
[2016-09-09] MEDS: Enoxaparin 40 mg Syringe SC SCH (08:34)
[2016-09-09] MEDS: GENTAMICIN 0.1% TOP SCH ×2 (08:37→17:27)
--- NOTE | 2016-09-09 09:21 | CP.PCM.PN ---
Subjective - Date & Time of Evaluation Date of Evaluation: 09/09/16 Time of Evaluation: 09:00 - Subjective Subjective: 41 year old male was seen at bedside for POD #11 left total ankle arthoplasty. Patient is AAOx3 and NAD. Patient reports continued pain to his left lower extremity. Patient states he cannot move toes due to the pain. Patient says rash is much improved. Patient denies any acute overnight events. Patient denies n/v/sob/cp/chills or f. Denies of any other pedal complaints. Objective - Vital Signs/Intake and Output Vital Signs (last 24 hours): Temp Pulse Resp BP Pulse Ox 98.1 F 69 20 129/94 H 97 09/09/16 08:07 09/09/16 08:07 09/09/16 08:07 09/09/16 08:07 09/09/16 08:07 - Medications Medications: Current Medications Acetaminophen (Tylenol 325mg Tab) 650 mg PO Q6 PRN PRN Reason: Fever >100.4 F Alprazolam (Xanax) 1 mg PO Q8 [facility] [place] Last Admin: 09/09/16 01:29 Dose: 1 mg Benzocaine/Menthol (Cepacol Sore Throat) 1 kenny PO Q3 PRN PRN Reason: Sore Throat Ciprofloxacin (Cipro) 500 mg PO Q12 [facility] [place] Last Admin: 09/09/16 08:36 Dose: 500 mg Diphenhydramine HCl (Benadryl) 25 mg PO Q6 PRN PRN Reason: Rash Docusate Sodium (Colace) 100 mg PO TID [facility] [place] Last Admin: 09/09/16 08:33 Dose: 100 mg Enoxaparin Sodium (Lovenox) 40 mg SC DAILY [facility] [place] PRN Reason: Protocol Last Admin: 09/09/16 08:34 Dose: 40 mg Gentamicin Sulfate (Gentamicin 0.1%) 1 applic TOP BID [facility] [place] Last Admin: 09/09/16 08:37 Dose: Not Given Home Med (Emtricita/Rilpivir/Tenofovir) 1 tab PO DAILY [facility] [place] Last Admin: 09/09/16 08:32 Dose: 1 tab Hydromorphone HCl (Dilaudid) 4 mg PO Q4 PRN PRN Reason: Pain, severe (8-10) Last Admin: 09/09/16 04:59 Dose: 4 mg Hydromorphone HCl (Dilaudid) 2 mg PO Q4 PRN PRN Reason: Pain, severe (8-10) Ketorolac Tromethamine (Toradol) 30 mg IM Q6 PRN PRN Reason: Pain, moderate (4-7) Last Admin: 09/07/16 12:32 Dose: 30 mg Lactulose (Enulose) 10 gm PO DAILY PRN PRN Reason: Constipation Last Admin: 09/08/16 08:02 Dose: 10 gm Levetiracetam (Keppra) 1,000 mg PO BID [facility] [place] Last Admin: 09/09/16 08:33 Dose: 1,000 mg Levetiracetam (Keppra) 250 mg PO BID [facility] [place] Last Admin: 09/09/16 08:35 Dose: 250 mg Mirtazapine (Remeron) 30 mg PO HS [facility] [place] Last Admin: 09/08/16 21:17 Dose: 30 mg Oxycodone HCl (Oxycontin Extended Release Tab) 20 mg PO Q8 [facility] [place] Last Admin: 09/09/16 08:32 Dose: 20 mg Pregabalin (Lyrica) 50 mg PO TID [facility] [place] Last Admin: 09/09/16 08:39 Dose: 50 mg Risperidone (Risperdal Tab) 2 mg PO DAILY@2100 [facility] [place] Last Admin: 09/08/16 20:05 Dose: 2 mg Senna/Docusate Sodium (Senokot S 50 Mg-8.6 Mg) 2 tab PO HS [facility] [place] Last Admin: 09/08/16 21:17 Dose: 2 tab Simethicone (Mylicon Chew Tab) 80 mg PO TID PRN PRN Reason: Flatulence Last Admin: 09/03/16 08:46 Dose: 80 mg Valsartan (Diovan) 80 mg PO DAILY [facility] [place] Last Admin: 09/09/16 08:36 Dose: 80 mg Zolpidem Tartrate (Ambien) 5 mg PO HS PRN PRN Reason: Insomnia Last Admin: 09/05/16 21:33 Dose: 5 mg - Labs Labs: 09/09/16 07:06 09/09/16 07:06 - Constitutional Appears: Well, Non-toxic, No Acute Distress - Extremities Exam Additional comments: Left lower extremity focused exam: Posterior appeared c/d/i. Vasc: CFT < 3 sec x 5. Moderate non-pitting edema. Temperature gradient WNL. Derm: Maculopapular plaque noted to proximal lateral calf with mild green- yellow colored drainage, appears to be improving. Neuro: Unable to assess surgical site with c/d/i posterior splint. Ortho: Tenderness to palpation of left lower extremity - Neurological Exam Neurological Exam: Alert, Awake, Oriented x3 - Psychiatric Exam Psychiatric exam: Normal Affect, Normal Mood Assessment and Plan - Assessment and Plan (Free Text) Assessment: 41 year old male s/p 11 days left total ankle replacement. Plan: -Patient was seen and evaluated. -Chart, labs, and vitals reviewed (afebrile, WBC: 6.8) (WBC: 8.6 on 09/03/16) -Discussed plan in detail with attending Dr. Liu -Applied gentamicin to rash and dressed LLE with Telfa, adaptic, ABD, kerlix, webril, APWAN wrap, and posterior splint -C/W daily application of gentamicin topical rash -Pt to be discharged on total of 14 days po Cipro 500mg q12 (day #3/14 today) -PT recommending home with services -Discussed with Family Medicine team; pt is for for d/c home today -Patient is to remain strict NWB of left lower extremity with crutches; keep dressings c/d/i; patient is to follow up with Dr. Liu as an outpatient in podiatry clinic following discharge -Left ankle x-rays reviewed (09/09/16): hardware appears to be intact and good alignment noted -Pt is stable for discharge home
--- NOTE | 2016-09-09 16:28 | RAD ---
PROCEDURE: Left Ankle Radiographs. HISTORY: 11 days s/p left ankle surgery COMPARISON: 08/28/2016. FINDINGS: BONES: Satisfactory postoperative status. JOINTS: Postoperative findings related to ankle arthroplasty. SOFT TISSUES: Normal. OTHER FINDINGS: None. IMPRESSION: No significant interval change compared to the prior examination(s). Detail obscured by overlying fiberglass cast.
== END 2016-09-09 18:10 | disposition home or self-care (01) | DRG 256 ==
LOC: H.TCU 12:25
PROVIDERS: ADMIT Family Medicine Geriatric Medicine; ATTEND Family Medicine Geriatric Medicine
PROC: F07Z9FZ Gait Training/Functional Ambulation Treatment using Assistive, Adaptive, Supportive or Protective Equipment (ICD-10-PCS; principal; 2016-09-03)
PROC: F07M6FZ Therapeutic Exercise Treatment of Musculoskeletal System - Whole Body using Assistive, Adaptive, Supportive or Protective Equipment (ICD-10-PCS; 2016-09-03)
PROC: F08Z4FZ Home Management Treatment using Assistive, Adaptive, Supportive or Protective Equipment (ICD-10-PCS; 2016-09-03)
DX: Z47.1 Aftercare following joint replacement surgery (principal); Z96.662 Presence of left artificial ankle joint; I10 Essential (primary) hypertension; E66.9 Obesity, unspecified; Z21 Asymptomatic human immunodeficiency virus [HIV] infection status; Z76.5 Malingerer [conscious simulation]; F39 Unspecified mood [affective] disorder; G40.909 Epilepsy, unspecified, not intractable, without status epilepticus; J45.909 Unspecified asthma, uncomplicated; Z82.0 Family history of epilepsy and other diseases of the nervous system

== ENCOUNTER 2016-09-13 21:04 | Emergency (ER) | payer MEDICAID ==
[2016-09-13 21:04] VITALS: BMI 31.3
[2016-09-13 21:07] VITALS: BP 104/67; PULSE 95; RESP 18; TEMP 98; O2SAT 95
--- NOTE | 2016-09-13 21:40 | ED PDOC ---
Lower Extremity Pain/Injury Time Seen by Provider: 09/13/16 21:13 Chief Complaint (Nursing): Back Pain Chief Complaint (Provider): left ankle pain History Per: Patient History/Exam Limitations: no limitations Onset/Duration Of Symptoms: Days Current Symptoms Are (Timing): Still Present Additional History Per: Patient Additional Complaint(s): 41 y/o male presents with left ankle pain x 2 days. Patient is status-post total left ankle replacement 08/28/16. Patient states he normally takes Oxycodone 30mg for chronic back pain, and he was discharged with only 30 pills of Hydromorphone 2mg on 09/09/16 and now he has nothing left. Patient poor historian, nodding in and out during interview. Denies fever, fall, numbness/ weakness left lower extremity, bowel/bladder incontinence. Past Medical History Reviewed: Historical Data, Nursing Documentation, Vital Signs Vital Signs: Last Vital Signs Temp 98 F 09/13/16 21:05 Pulse 95 H 09/13/16 21:05 Resp 18 09/13/16 21:05 BP 104/67 09/13/16 21:05 Pulse Ox 95 09/13/16 21:05 - Medical History PMH: Anxiety, Arthritis, Asthma, Back Problems, Bipolar Disorder, CHF, Dementia , Depression, Fractures, HIV, HTN, Osteoporosis, Schizophrenia, Seizures ( EPILEPSY), Chronic Pain (Back/Knee/Ankle) Denies: Chronic Kidney Disease - Surgical History Surgical History: Appendectomy - Family History Family History: States: Unknown Family Hx - Immunization History Hx Tetanus Toxoid Vaccination: No Hx Influenza Vaccination: No Hx Pneumococcal Vaccination: No - Home Medications Home Medications: Ambulatory Orders Medication Instructions Recorded Emtricita/rilpivir/tenofovir 1 tab PO DAILY 09/02/14 [Complera 200 mg-25 mg-300 mg] Albuterol HFA [Ventolin HFA 90 2 puff IH Q6H PRN 11/09/14 mcg/actuation (8 g)] Gabapentin [Neurontin] 400 mg PO TID 11/23/14 Pregabalin [Lyrica] 50 mg PO DAILY 11/23/14 Alprazolam [Xanax] 2 mg PO TID #0 12/11/14 Acetaminophen/Oxycodone Hydr 1 tab PO Q6H #30 tab 06/26/15 [Percocet 10/325 mg Tab] Oxycodone HCl 30 mg PO TID 06/26/15 ALPRAZolam [Xanax] 1 mg PO Q8 tab 09/02/16 Benzocaine/Menthol [Cepacol Sore 1 kenny PO Q2 PRN kenny 09/02/16 Throat] Docusate Sodium/Sennosides A 2 tab PO HS tab 09/02/16 [Senokot S 50 MG-8.6 MG] Enoxaparin [Lovenox] 40 mg SC DAILY syr 09/02/16 Fluticasone/Salmeterol 250/50 1 puff IH Q12H puff 09/02/16 [Advair Diskus 250/50] Ketorolac [Toradol] 30 mg IVP Q6 PRN vial 09/02/16 Lactulose [Enulose] 10 gm PO DAILY PRN 09/02/16 Mirtazapine [Remeron] 30 mg PO HS tab 09/02/16 Simethicone [Mylicon Chew Tab] 80 mg PO TID PRN 09/02/16 Zolpidem [Ambien] 5 mg PO HS PRN tab 09/02/16 hydroCHLOROthiazide [Microzide] 12.5 mg PO DAILY cap 09/02/16 oxyCODONE [oxyCONTIN Extended 20 mg PO Q8 09/02/16 Release Tab] risperiDONE [RisperDAL Tab] 2 mg PO HS tab 09/02/16 Ciprofloxacin [Cipro] 500 mg PO Q12 #22 tab 09/09/16 HYDROmorphone [Dilaudid] 2 mg PO Q4 PRN #30 tab 09/09/16 Valsartan [Diovan] 80 mg PO DAILY #30 tab 09/09/16 levETIRAcetam [Keppra] 1,250 mg PO BID #60 tab 09/09/16 oxyCODONE [oxyCONTIN Extended 20 mg PO Q8 #20 09/09/16 Release Tab] Naproxen [Naprosyn] 500 mg PO Q12 PRN #20 tablet 09/13/16 - Allergies Allergies/Adverse Reactions: Allergies Allergy/AdvReac Type Severity Reaction Status Date / Time No Known Allergies Allergy Verified 09/02/16 12:29 Review of Systems ROS Statement: Except As Marked, All Systems Reviewed And Found Negative Musculoskeletal: Positive for: Foot Pain (left) Physical Exam - Reviewed Nursing Documentation Reviewed: Yes Vital Signs Reviewed: Yes - Physical Exam Appears: Positive for: Well, Non-toxic, No Acute Distress (sleeping, snoring) Head Exam: Positive for: ATRAUMATIC, NORMAL INSPECTION, NORMOCEPHALIC Cardiovascular/Chest: Positive for: Regular Rate, Rhythm Respiratory: Positive for: Normal Breath Sounds Extremity: Positive for: Normal ROM, Other (left lower extremity in splint; digits exposed, cap refil <2 sec. No swelling, drainage noted) - ECG O2 Sat by Pulse Oximetry: 95 - Other Rad left ankle xray X-Ray: Viewed By Ar X-Ray Interpretation: no acute findings. hardware appears in place, no changes from previous - Progress ED Course And Treament: xray, podiatry consult. Patient evaluated by Podiatry resident on-call; dressing changed, splint applied. Advised to continue using crutches for non-weight bearing. Follow up as instructed. Patient discharged with rx Naproxen. Follow up as scheduled. Return to ED for worsening/concerning symptoms. Disposition - Clinical Impression Clinical Impression: History of total ankle replacement - Patient ED Disposition Is Patient to be Admitted: No Counseled Patient/Family Regarding: Studies Performed, Diagnosis, Need For Followup - Disposition Disposition: Routine/Home Disposition Time: 22:57 Condition: STABLE Prescriptions: Naproxen [Naprosyn] 500 mg PO Q12 PRN #20 tablet PRN Reason: Pain, Moderate (4-7) Instructions: Joint Replacement Surgery (GEN) Print Language: PASHTO
--- NOTE | 2016-09-13 22:03 | CP.PCM.CON ---
History of Present Illness - History of Present Illness History of Present Illness: 41 y/o male with PMHx of Anxiety, Arthritis, Asthma, Back Problems, Bipolar Disorder, CHF, Dementia, Depression, Fractures, HIV, HTN, Osteoporosis, Schizophrenia, Seizures (EPILEPSY), Chronic Pain (Back/Knee/Ankle) seen at bedside in ED c/o pain in his left ankle. Pt states that he had a surgery in his ankle 2 weeks ago. Pt states that he was recently discharged from the hospital with 20 pills of hydromorphone 2mg. Pt states that he does not have those pills anymore and is in lot of pain. Pt denies of any trauma or fall. Pt states that he has been using the crutches and denies of putting weight on his foot. Pt denies of any recent F/N/V/C/SOB. PMHx: Anxiety, Arthritis, Asthma, Back Problems, Bipolar Disorder, CHF, Dementia , Depression, Fractures, HIV, HTN, Osteoporosis, Schizophrenia, Seizures ( EPILEPSY), Chronic Pain (Back/Knee/Ankle) PSHx: Total Left Ankle Replacement (08/28/16), Multiple left foot and ankle surgeries, Appendectomy Allergies: N.K.D.A Review of Systems - Constitutional Constitutional: As Per HPI Past Patient History - Infectious Disease Hx of Infectious Diseases: None - Past Medical History & Family History Past Medical History?: Yes - Past Social History Smoking Status: Never Smoked - CARDIAC Hx Congestive Heart Failure: Yes Hx Hypertension: Yes - PULMONARY Hx Asthma: Yes - NEUROLOGICAL Hx Dementia: Yes Hx Seizures: Yes (EPILEPSY) - HEENT Hx HEENT Problems: No - RENAL Hx Chronic Kidney Disease: No - ENDOCRINE/METABOLIC Hx Endocrine Disorders: No - HEMATOLOGICAL/ONCOLOGICAL Hx Human Immunodeficiency Virus (HIV): Yes - INTEGUMENTARY Hx Dermatological Problems: No - MUSCULOSKELETAL/RHEUMATOLOGICAL Hx Arthritis: Yes Hx Fractures: Yes Hx Osteoporosis: Yes - GASTROINTESTINAL Hx Gastrointestinal Disorders: No Hx Gastroesophageal Reflux: Yes - GENITOURINARY/GYNECOLOGICAL Hx Genitourinary Disorders: No - PSYCHIATRIC Hx Anxiety: Yes Hx Bipolar Disorder: Yes Hx Depression: Yes Hx Schizophrenia: Yes - SURGICAL HISTORY Hx Appendectomy: Yes - ANESTHESIA Hx Anesthesia: Yes Hx Anesthesia Reactions: No Hx Malignant Hyperthermia: No Meds Allergies/Adverse Reactions: Allergies Allergy/AdvReac Type Severity Reaction Status Date / Time No Known Allergies Allergy Verified 09/02/16 12:29 Physical Exam - Constitutional Appears: Well, Non-toxic, No Acute Distress - Extremities Exam Additional comments: Left foot focused: VASC: DP/PT pulses are palpable 2/4 b/l, [employer]: < 3 sec x 10, TG: warm to cool, mild non-pitting edema noted surrounding the surgical site, no erythema DERM: surgical site is well coapted, surgical sutures are intact, no dehiscence , no active drainage, no malodor, no suspicion of active infection NEURO: Grossly intact ORTHO: Mild pain on ROM at the left ankle joint - Neurological Exam Neurological exam: Alert, Oriented x3 - Psychiatric Exam Psychiatric exam: Normal Affect, Normal Mood Results - Vital Signs Recent Vital Signs: Last Vital Signs Temp 98 F 09/13/16 21:05 Pulse 95 H 09/13/16 21:05 Resp 18 09/13/16 21:05 BP 104/67 09/13/16 21:05 Pulse Ox 95 09/13/16 21:41 Assessment & Plan - Assessment and Plan (Free Text) Assessment: 41 y/o male seen at bedside in ED for pain 2 weeks s/p total ankle replacement Plan: Pt evaluated and chart reviewed Pt discussed in details with attending Dr. Liu Vitals reviewed (pt is afebrile) X-rays reviewed: ankle hardware is in good placement with no displacement Dressing changed using gauze and cling. Posterior splint applied to the foot Pt educated to use crutches at all times and prevent from weightbearing Pt educated to return to ED if any systemic signs are experienced Pt informed he must follow up with Dr. Beal for pain management - Dr. Beal is familiar with patient's history of chronic pain and high pain tolerance Pt to follow up in podiatry clinic with Dr. Liu Pt demonstrated verbal understanding
[2016-09-14] MEDS ORDERED: Naproxen 500 MG TAB PO ONE ×2 (00:16→00:21)
--- NOTE | 2016-09-14 11:08 | RAD ---
PROCEDURE: Left Ankle Radiographs. HISTORY: pain, post-op COMPARISON: 09/09/2016 FINDINGS: BONES: Stable postoperative findings. Orthopedic hardware related to ankle arthroplasty in stable position and alignment. No evidence of hardware failure. JOINTS: Normal. No osteoarthritis. Ankle mortise maintained. Talar dome intact SOFT TISSUES: Normal. OTHER FINDINGS: None. IMPRESSION: Stable postoperative findings. No preliminary report provided by emergency department personnel.
== END 2016-09-14 02:15 | disposition home or self-care (01) ==
LOC: H.ER 21:04
DX: Z48.00 Encounter for change or removal of nonsurgical wound dressing (principal); Z96.661 Presence of right artificial ankle joint; G89.29 Other chronic pain; I11.0 Hypertensive heart disease with heart failure; G40.909 Epilepsy, unspecified, not intractable, without status epilepticus; F20.9 Schizophrenia, unspecified; F31.9 Bipolar disorder, unspecified; F41.9 Anxiety disorder, unspecified; I50.9 Heart failure, unspecified

== ENCOUNTER 2016-09-17 18:04 | Emergency (ER) | payer MEDICAID ==
[2016-09-17 18:05] VITALS: BMI 31.3
[2016-09-17 18:10] VITALS: PULSE 96; RESP 20; TEMP 98.7; O2SAT 97
--- NOTE | 2016-09-17 18:22 | ED PDOC ---
Lower Extremity Pain/Injury Time Seen by Provider: 09/17/16 18:06 Chief Complaint (Nursing): Lower Extremity Problem/Injury Chief Complaint (Provider): Left ankle pain x 3 weeks History Per: Patient History/Exam Limitations: no limitations Onset/Duration Of Symptoms: Days Current Symptoms Are (Timing): Still Present Additional Complaint(s): Pt with history of opiate abuse presents with left ankle pain. Pt was seen in ER on 09/13 for the same complaint. Podiatry consult completed on 09/13 and patient has appointment with podiatry tomorrow. Pt was given #30 tabs of hydromorphone and #20 tabs of oxycodone on 09/09/16. Past Medical History Reviewed: Historical Data, Nursing Documentation, Vital Signs Vital Signs: Last Vital Signs Temp 98.7 F 09/17/16 18:07 Pulse 96 H 09/17/16 18:07 Resp 20 09/17/16 18:07 BP Pulse Ox 97 09/17/16 18:07 - Medical History PMH: Anxiety, Arthritis, Asthma, Back Problems, Bipolar Disorder, CHF, Dementia , Depression, Fractures, HIV, HTN, Osteoporosis, Schizophrenia, Seizures ( EPILEPSY), Chronic Pain (Back/Knee/Ankle) Denies: Chronic Kidney Disease - Surgical History Surgical History: Appendectomy - Family History Family History: States: Unknown Family Hx - Living Arrangements Living Arrangements: With Family - Social History Current smoker - smoking cessation education provided: No Alcohol: None Drugs: Opiates - Immunization History Hx Tetanus Toxoid Vaccination: No Hx Influenza Vaccination: No Hx Pneumococcal Vaccination: No - Home Medications Home Medications: Ambulatory Orders Medication Instructions Recorded Emtricita/rilpivir/tenofovir 1 tab PO DAILY 09/02/14 [Complera 200 mg-25 mg-300 mg] Albuterol HFA [Ventolin HFA 90 2 puff IH Q6H PRN 11/09/14 mcg/actuation (8 g)] Gabapentin [Neurontin] 400 mg PO TID 11/23/14 Pregabalin [Lyrica] 50 mg PO DAILY 11/23/14 Alprazolam [Xanax] 2 mg PO TID #0 12/11/14 Acetaminophen/Oxycodone Hydr 1 tab PO Q6H #30 tab 06/26/15 [Percocet 10/325 mg Tab] Oxycodone HCl 30 mg PO TID 06/26/15 ALPRAZolam [Xanax] 1 mg PO Q8 tab 09/02/16 Benzocaine/Menthol [Cepacol Sore 1 kenny PO Q2 PRN kenny 09/02/16 Throat] Docusate Sodium/Sennosides A 2 tab PO HS tab 09/02/16 [Senokot S 50 MG-8.6 MG] Enoxaparin [Lovenox] 40 mg SC DAILY syr 09/02/16 Fluticasone/Salmeterol 250/50 1 puff IH Q12H puff 09/02/16 [Advair Diskus 250/50] Ketorolac [Toradol] 30 mg IVP Q6 PRN vial 09/02/16 Lactulose [Enulose] 10 gm PO DAILY PRN 09/02/16 Mirtazapine [Remeron] 30 mg PO HS tab 09/02/16 Simethicone [Mylicon Chew Tab] 80 mg PO TID PRN 09/02/16 Zolpidem [Ambien] 5 mg PO HS PRN tab 09/02/16 hydroCHLOROthiazide [Microzide] 12.5 mg PO DAILY cap 09/02/16 oxyCODONE [oxyCONTIN Extended 20 mg PO Q8 09/02/16 Release Tab] risperiDONE [RisperDAL Tab] 2 mg PO HS tab 09/02/16 Ciprofloxacin [Cipro] 500 mg PO Q12 #22 tab 09/09/16 HYDROmorphone [Dilaudid] 2 mg PO Q4 PRN #30 tab 09/09/16 Valsartan [Diovan] 80 mg PO DAILY #30 tab 09/09/16 levETIRAcetam [Keppra] 1,250 mg PO BID #60 tab 09/09/16 oxyCODONE [oxyCONTIN Extended 20 mg PO Q8 #20 09/09/16 Release Tab] Naproxen [Naprosyn] 500 mg PO Q12 PRN #20 tablet 09/13/16 Ibuprofen [Motrin Tab] 800 mg PO Q6H PRN #20 tab 09/17/16 - Allergies Allergies/Adverse Reactions: Allergies Allergy/AdvReac Type Severity Reaction Status Date / Time No Known Allergies Allergy Verified 09/02/16 12:29 Review of Systems ROS Statement: Except As Marked, All Systems Reviewed And Found Negative Constitutional: Negative for: Fever Musculoskeletal: Positive for: Foot Pain (Left ) Skin: Negative for: Rash Physical Exam - Reviewed Nursing Documentation Reviewed: Yes Vital Signs Reviewed: Yes - Physical Exam Appears: Positive for: Well, Non-toxic, No Acute Distress Head Exam: Positive for: ATRAUMATIC, NORMAL INSPECTION, NORMOCEPHALIC Skin: Positive for: Normal Color, Warm, DRY Eye Exam: Positive for: Normal appearance ENT: Positive for: Normal ENT Inspection Neck: Positive for: Normal, Painless ROM Cardiovascular/Chest: Positive for: Regular Rate, Rhythm Respiratory: Positive for: CNT, Normal Breath Sounds Back: Positive for: Normal Inspection Extremity: Positive for: Capillary Refill, Other (Sensation intact ). Negative for: Normal ROM (Decreasd left ankle due to splint) Neurologic/Psych: Positive for: Alert, Oriented - ECG O2 Sat by Pulse Oximetry: 97 Medical Decision Making Medical Decision Making: Toradol and percocet given in ER for pain Disposition - Clinical Impression Clinical Impression: Opiate dependence, Ankle pain, Drug-seeking behavior - Patient ED Disposition Is Patient to be Admitted: No Counseled Patient/Family Regarding: Diagnosis, Need For Followup - Disposition Referrals: Podiatry Clinic [Outside] [facility] [Outside] Disposition: Routine/Home Disposition Time: 18:21 Condition: GOOD Prescriptions: Ibuprofen [Motrin Tab] 800 mg PO Q6H PRN #20 tab PRN Reason: Pain Instructions: Chronic Pain (ED), Narcotic Abuse (ED)
[2016-09-17] MEDS ORDERED: Oxycodone/Acetaminophen 5/325 mg Tab PO STA (18:43)
[2016-09-17] MEDS ORDERED: Oxycodone/Acetaminophen 5/325 mg Tab ONE (18:45)
== END 2016-09-17 20:08 | disposition home or self-care (01) ==
LOC: H.ER 18:04
DX: M25.572 Pain in left ankle and joints of left foot (principal); Z72.89 Other problems related to lifestyle; F11.20 Opioid dependence, uncomplicated

== ENCOUNTER 2017-12-15 14:25 | Emergency (ER) | payer MEDICAID ==
[2017-12-15 14:25] VITALS: BMI 31.3
[2017-12-15] MEDS ORDERED: Oxycodone/Acetaminophen 5/325 mg Tab PO STA (15:28)
[2017-12-15] MEDS ORDERED: Oxycodone/Acetaminophen 5/325 mg Tab ONE (15:40)
[2017-12-15 16:00] LABS: BASO # 0.1 K/uL (0.0-0.2); EOS # 0.2 K/uL (0.0-0.7); EOS % 1.6 % (0.0-4.0); LYMPH # 2.9 K/uL (1.0-4.3); LYMPH % 20.3 % (20.0-40.0); MEAN CELL VOLUME 80.7 fl (80.0-94.0); MEAN CORPUSCULAR HEMOGLOBIN 25.9 pg (27.0-31.0); MEAN CORPUSCULAR HGB CONC 32.1 g/dL (33.0-37.0); MEAN PLATELET VOLUME 8.5 fl (7.2-11.7); MONO # 0.9 K/uL (0.0-0.8); MONO % 6.4 % (0.0-10.0); NEUT # 10.1 K/uL (1.8-7.0); NEUT % 70.7 % (50.0-75.0); NRBC % 0.1 % (0.0-0.0); RBC 5.4 Mil/uL (4.40-5.90); RED CELL DISTRIBUTION WIDTH 14.1 % (11.5-14.5); WHITE BLOOD COUNT 14.3 K/uL (4.8-10.8)
[2017-12-15 16:11] LABS: BLOOD UREA NITROGEN 16 mg/dl (9-20); CALCIUM 9.8 mg/dL (8.4-10.2); GFR NON-AFRICAN AMERICAN > 60
[2017-12-15 16:14] LABS: ALB/GLOB RATIO 1.2 (1.0-2.1); ALBUMIN 4.6 g/dL (3.5-5.0); ALT/SGPT 38 U/L (21-72); AST/SGOT 63 U/L (17-59)
--- NOTE | 2017-12-15 16:40 | CT ---
Date of service: 12/15/2017 PROCEDURE: CT HEAD WITHOUT CONTRAST. HISTORY: seizure COMPARISON: 12/20/2014 CT head TECHNIQUE: Axial computed tomography images were obtained through the head/brain without intravenous contrast. Radiation dose: Total exam DLP = 825 mGy-cm. This CT exam was performed using one or more of the following dose reduction techniques: Automated exposure control, adjustment of the mA and/or kV according to patient size, and/or use of iterative reconstruction technique. FINDINGS: HEMORRHAGE: No intracranial hemorrhage. BRAIN: No mass effect or edema. There is marked cerebral atrophy and marked prominence of cerebral sulci left side slightly greater than right. Right basal ganglionic lacune. This pattern is stable since 2014 VENTRICLES: The ventricular prominence is commensurate with the degree of cerebral atrophy. CALVARIUM: Benign-appearing pacchionian granulation are noted. No worrisome interval change perceived PARANASAL SINUSES: Unremarkable as visualized. No significant inflammatory changes. MASTOID AIR CELLS: Unremarkable as visualized. No inflammatory changes. OTHER FINDINGS: Right nasal septal deviation stable appearing IMPRESSION: No intracranial hemorrhage or mass effect. Marked cerebral atrophy. Tiny right basal basal ganglionic lacune. All findings stable since 2014
--- NOTE | 2017-12-15 16:51 | CT ---
Date of service: 12/15/2017 PROCEDURE: CT Lumbar Spine without contrast HISTORY: trauma COMPARISON: CT lumbar spine 08/10/2014 TECHNIQUE: Axial computed tomography images were obtained of the lumbar spine without the use of intravenous contrast. Coronal and sagittal reformatted images were created and reviewed. Radiation dose: Total exam DLP = 1251 mGy-cm. This CT exam was performed using one or more of the following dose reduction techniques: Automated exposure control, adjustment of the mA and/or kV according to patient size, and/or use of iterative reconstruction technique. FINDINGS: VERTEBRAE: Unremarkable. No fracture. Normal alignment. DISCS/SPINAL CANAL/NEURAL FORAMINA: L1-2: Unremarkable. L2-3: Unremarkable. L3-4: Unremarkable. L4-5: Unremarkable. L5-S1: Unremarkable. PARASPINAL SOFT TISSUES: Unremarkable. OTHER FINDINGS: Distended bladder. IMPRESSION: No fracture or lytic lesion. Overall bone mineralization appears grossly normal on this exam. Prior CT report noted. Distended bladder of unknown clinical significance if any. Correlate clinically.
--- NOTE | 2017-12-15 17:12 | RAD ---
Date of service: 12/15/2017 PROCEDURE: Left Ankle Radiographs. HISTORY: hardware COMPARISON: None FINDINGS: BONES: There is a left ankle prosthesis in anatomic alignment. There are no complicating factors JOINTS: Normal. No osteoarthritis. Ankle mortise maintained. Talar dome intact SOFT TISSUES: Normal. OTHER FINDINGS: None. IMPRESSION: There is a left ankle prosthesis in anatomic alignment. There are no complicating factors
--- NOTE | 2017-12-15 17:54 | ED PDOC ---
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 Patient states that the last thing he remembers is urinating and then once he regained consciousness, was informed by his homemaker he had a seizure, despite taking Keppra yesterday and today. Also of note, patient reports that he ran out of his oxycodone which he takes for his left leg and lower back pain, and would like a refill. Otherwise denies head injury, fever, incontinence, oral injury, chest pain, and abdominal pain. PMD: in [place] <Kurt Lee - Last Filed: 12/16/17 13:11> <Lori Angel - Last Filed: 12/18/17 14:22> Time Seen by Provider: 12/15/17 14:55 Chief Complaint (Nursing): Pain, Chronic Past Medical History Reviewed: Historical Data, Nursing Documentation, Vital Signs Vital Signs: Last Vital Signs Temp 98.0 F 12/15/17 14:26 Pulse 97 H 12/15/17 14:26 Resp 20 12/15/17 14:26 BP 131/97 H 12/15/17 14:26 Pulse Ox 95 12/15/17 14:26 - Medical History PMH: Anxiety, Arthritis, Asthma, Back Problems, Bipolar Disorder, CHF, Dementia, Depression, Fractures (right leg), HIV, HTN, Osteoporosis, Schizophrenia, Seizures, Chronic Pain (Back/Knee/Ankle) Denies: Chronic Kidney Disease - Surgical History Surgical History: Appendectomy - Family History Family History: States: Unknown Family Hx - Living Arrangements Living Arrangements: Other (with homemaker) - Social History Current smoker - smoking cessation education provided: No Alcohol: None Drugs: Denies - Immunization History Hx Tetanus Toxoid Vaccination: No Hx Influenza Vaccination: No Hx Pneumococcal Vaccination: No <Kurt Lee - Last Filed: 12/16/17 13:11> Vital Signs: Last Vital Signs Temp 98.4 F 12/15/17 20:30 Pulse 72 12/15/17 20:30 Resp 18 12/15/17 20:30 BP 120/91 H 12/15/17 20:30 Pulse Ox 95 12/16/17 13:17 <Lori Angel - Last Filed: 12/18/17 14:22> - Home Medications Home Medications: Ambulatory Orders Medication Instructions Recorded Albuterol 0.083% [Albuterol 3 ml IH PRN PRN 11/15/17 Sulfate 3 Ml] Levetiracetam [Keppra] 1,250 mg PO QID 11/15/17 RX: oxyCODONE [oxyCODONE Immediate 30 mg PO TID PRN 11/15/17 Release Tab] Valsartan/Hydrochlorothiazide 1 each PO DAILY 11/15/17 [Diovan Hct 160-12.5 mg Tab] Naloxone HCl [Narcan] 4 mg NS ONCE PRN #1 spray 12/15/17 RX: oxyCODONE [oxyCODONE Immediate 30 mg PO Q6H PRN #4 tab 12/15/17 Release Tab] - Allergies Allergies/Adverse Reactions: Allergies Allergy/AdvReac Type Severity Reaction Status Date / Time No Known Allergies Allergy Verified 10/08/16 15:45 Review of Systems ROS Statement: Except As Marked, All Systems Reviewed And Found Negative Constitutional: Negative for: Fever, Other (head injury) ENT: Negative for: Other (oral injury) Cardiovascular: Negative for: Chest Pain Gastrointestinal: Negative for: Abdominal Pain Genitourinary Male: Negative for: Incontinence Musculoskeletal: Positive for: Back Pain (lower), Leg Pain (left) Neurological: Positive for: Seizures (witnessed), Other (loss of consciousness) <Kurt Lee - Last Filed: 12/16/17 13:11> Physical Exam - Reviewed Nursing Documentation Reviewed: Yes Vital Signs Reviewed: Yes - Physical Exam Appears: Positive for: No Acute Distress Head Exam: Positive for: ATRAUMATIC, NORMOCEPHALIC Skin: Positive for: Normal Color, Warm, Dry. Negative for: Rash Eye Exam: Positive for: Normal appearance Neck: Positive for: Normal, Painless ROM, Supple Cardiovascular/Chest: Positive for: Regular Rate, Rhythm Respiratory: Positive for: Normal Breath Sounds. Negative for: Respiratory Distress Pulses-Dorsalis Pedis (L): 2+ Pulses-Dorsalis Pedis (R): 2+ Gastrointestinal/Abdominal: Positive for: Normal Exam, Soft. Negative for: Tenderness Extremity: Positive for: Calf Tenderness (minimal left calf), Other (boot in p lace to left leg) Neurologic/Psych: Positive for: Alert, Oriented (x3) <Kurt Lee - Last Filed: 12/16/17 13:11> - Laboratory Results Result Diagrams: 12/15/17 15:29 12/15/17 15:29 - ECG O2 Sat by Pulse Oximetry: 95 (RA) Pulse Ox Interpretation: Normal - Progress ED Course And Treament: Pt. searched on [facility] aware and indicates that pt. gets a monthly Rx for Oxycodone. Last Oxycodone Rx was filled on 11/18/2017. Pt. states he does not get a a refill until 2 weeks. Labs reviewed. Denies abdominal pain, fever. No abdominal tenderness. Case d/w Dr. Angel who states pt. can given Oxycodone Rx #4. Pt. became irrate and states "I didn't come from [place] to [place] for 4 pills." <Kurt Lee - Last Filed: 12/16/17 13:11> - Laboratory Results Result Diagrams: 12/15/17 15:29 12/15/17 15:29 <Lori Angel - Last Filed: 12/18/17 14:22> Medical Decision Making Medical Decision Making: Time: 1526 Initial Impression: seizure, back pain, leg pain Initial Plan: --CT head without contrast --CT lumbar spine --EKG --CMP --CBC with differential --Accucheck --Percocet 2 tab PO --XR left ankle --US left LE [address] FINDINGS: HEMORRHAGE: No intracranial hemorrhage. BRAIN: No mass effect or edema. There is marked cerebral atrophy and marked prominence of cerebral sulci left side slightly greater than right. Right basal ganglionic lacune. This pattern is stable since 2014 VENTRICLES: The ventricular prominence is commensurate with the degree of cerebral atrophy. CALVARIUM: Benign-appearing pacchionian granulation are noted. No worrisome interval change perceived PARANASAL SINUSES: Unremarkable as visualized. No significant inflammatory changes. MASTOID AIR CELLS: Unremarkable as visualized. No inflammatory changes. OTHER FINDINGS: Right nasal septal deviation stable appearing IMPRESSION: No intracranial hemorrhage or mass effect. Marked cerebral atrophy. Tiny right basal basal ganglionic lacune. All findings stable since [address] FINDINGS: VERTEBRAE: Unremarkable. No fracture. Normal alignment. DISCS/SPINAL CANAL/NEURAL FORAMINA: L1-2: Unremarkable. L2-3: Unremarkable. L3-4: Unremarkable. L4-5: Unremarkable. L5-S1: Unremarkable. PARASPINAL SOFT TISSUES: Unremarkable. OTHER FINDINGS: Distended bladder. IMPRESSION: No fracture or lytic lesion. Overall bone mineralization appears grossly normal on this exam. Prior CT report noted. Distended bladder of unknown clinical significance if any. Correlate clinically. 1709 Ankle XR FINDINGS: BONES: There is a left ankle prosthesis in anatomic alignment. There are no complicating factors JOINTS: Normal. No osteoarthritis. Ankle mortise maintained. Talar dome intact SOFT TISSUES: Normal. OTHER FINDINGS: None. IMPRESSION: There is a left ankle prosthesis in anatomic alignment. There are no complicating factors Scribe Attestation: Documented by Anita Ibarra, acting as a scribe for Kurt Lee PA-C. Provider Scribe Attestation: All medical record entries made by the Scribe were at my direction and personally dictated by me. I have reviewed the chart and agree that the record accurately reflects my personal performance of the history, physical exam, medical decision making, and the department course for this patient. I have also personally directed, reviewed, and agree with the discharge instructions and disposition. <Kutr Lee - Last Filed: 12/16/17 13:11> Disposition - Patient ED Disposition Is Patient to be Admitted: No - Disposition Disposition: Routine/Home Disposition Time: 20:00 <Kurt Lee - Last Filed: 12/16/17 13:11> <Lori Angel - Last Filed: 12/18/17 14:22> - Clinical Impression Clinical Impression: Seizure, Back pain, Chronic leg pain - Disposition Referrals: [facility] [Outside] Condition: STABLE Additional Instructions: MARY ANN ABAD, thank you for letting us take care of you today. Your provider was Lori Angel MD and you were treated for BACK PAIN. The emergency medical care you received today was directed at your acute symptoms. If you were prescribed any medication, please fill it and take as directed. It may take several days for your symptoms to resolve. Return to the Emergency Department if your symptoms worsen, do not improve, or if you have any other problems. Please contact your doctor or call one of the physicians/clinics you have been referred to that are listed on the Patient Visit Information form that is included in your discharge packet. Bring any paperwork you were given at discharge with you along with any medications you are taking to your follow up visit. Our treatment cannot replace ongoing medical care by a primary care provider outside of the emergency department. Thank you for allowing the [facility] team to be part of your care today. If you had an X-Ray or CT scan: A Radiologist will review the ED reading if any change in treatment is needed we will contact you. If you had a blood, urine, or wound culture: It will take several days for the results, if any change in treatment is needed we will contact you. If you had an STI test: It will take 48 hours for the results. Please call after 1 week if you have not heard back. Prescriptions: Naloxone HCl [Narcan] 4 mg NS ONCE PRN #1 spray PRN Reason: overdose RX: oxyCODONE [oxyCODONE Immediate Release Tab] 30 mg PO Q6H PRN #4 tab PRN Reason: Pain Instructions: Chronic Pain (DC), Seizures, Adult (DC) Forms: [employer] (Mauritian) Print Language: WALLISIAN Addendum Addendum: 12/18/17 14:22 Reviewed chart and agree with PA assessment and plan. <Lori Angel - Last Filed: 12/18/17 14:22>
[2017-12-16 04:24] VITALS: BP 120/91; PULSE 72; RESP 18; TEMP 98.4
--- NOTE | 2017-12-16 08:02 | CARD ---
APPROVED REPORT Date of service: 12/15/2017 EKG Measurement Heart [id number] <Conclusion> Normal sinus rhythm with sinus arrhythmia Nonspecific T wave abnormality Prolonged QT Abnormal ECG
--- NOTE | 2017-12-16 09:17 | US ---
Date of service: 12/15/2017 HISTORY: L calf pain. PRIORS: None. FINDINGS: 2-D, color and duplex Doppler analysis of the lower extremity venous circulation using routine protocol from the femoral veins through the popliteal veins. Venous compressibility: Normal. Flow and augmentation patterns: Normal. Visualized veins upper third of calf: Normal. Mckeon cyst: None. IMPRESSION: No sonographic or Doppler evidence for DVT in left lower extremity. The preliminary findings for this examination were reported by [facility] at 7:57 p.m. on 12/15/2017. There is concurrence of this report with the preliminary findings.
[2017-12-16 13:13] VITALS: O2SAT 95
== END 2017-12-15 20:35 | disposition home or self-care (01) ==
LOC: H.ER 14:25
DX: R56.9 Unspecified convulsions (principal); M54.9 Dorsalgia, unspecified; M79.605 Pain in left leg; I11.0 Hypertensive heart disease with heart failure

== ENCOUNTER 2018-05-29 12:07 | Emergency (ER) | payer MEDICAID ==
[2018-05-29 12:12] VITALS: BMI 43.6
--- NOTE | 2018-05-29 12:29 | ED PDOC ---
HPI: Back Time Seen by Provider: 05/29/18 12:18 Chief Complaint (Nursing): Abdominal Pain Chief Complaint (Provider): back pain and hip pain History Per: Patient History/Exam Limitations: no limitations Onset/Duration Of Symptoms: Days (x5) Current Symptoms Are (Timing): Still Present Additional Complaint(s): Sulaiman Rod is a 42 year old male, with a past medical history of HTN, asthma, seizures, chronic back pain and HIV positive, who presents to the emergency department complaining of a worsening chronic lower back pain and left hip pain onset x5 days ago. Patient states he had a seizure x5 days ago and injured his left hip and lower back. Patient is taking Oxycodone for pain but states they aren't helping. He is currently taking Keppra for his seizures. Patient is also reporting a lump on the naval that has grown larger since. Patient states he also developed an abdominal pain and feels distended. He denies any fever, chills, chest pain, shortness of breath, nausea, vomit, diarrhea, constipation, weakness, numbness, tingling or other medical complaints. PMD: Yakelin Shea Past Medical History Reviewed: Historical Data, Nursing Documentation, Vital Signs Vital Signs: Last Vital Signs Temp 98.4 F 05/29/18 12:12 Pulse 110 H 05/29/18 12:12 Resp 17 05/29/18 12:12 BP 150/98 H 05/29/18 12:12 Pulse Ox 97 05/29/18 12:12 - Medical History PMH: Anxiety, Arthritis, Asthma, Back Problems, Bipolar Disorder, CHF, Dementia, Depression, Fractures (right leg), HIV, HTN, Osteoporosis, Schizophrenia, Seizures, Chronic Pain (Back/Knee/Ankle) Denies: Chronic Kidney Disease - Surgical History Surgical History: Appendectomy - Family History Family History: States: Unknown Family Hx - Social History Current smoker - smoking cessation education provided: No Alcohol: None Drugs: Denies - Immunization History Hx Tetanus Toxoid Vaccination: No Hx Influenza Vaccination: No Hx Pneumococcal Vaccination: No - Home Medications Home Medications: Ambulatory Orders Medication Instructions Recorded Albuterol 0.083% [Albuterol 3 ml IH PRN PRN 11/15/17 Sulfate 3 Ml] oxyCODONE [oxyCODONE Immediate 30 mg PO TID PRN 11/15/17 Release Tab] Diclofenac/Met Salicyl/Menthol 1 patch TOP DAILY 01/15/18 [Diclopr Combo Pack] Elviteg/Kellie/Emtric/Tenofo Dis 1 tab PO DAILY 01/15/18 [Stribild Tablet] Gabapentin [Neurontin] 1 tab PO TID 01/15/18 Dicyclomine [Bentyl] 10 mg PO QID #20 cap 05/24/18 Docusate [Colace] 100 mg PO TID PRN #30 cap 05/24/18 Magnesium Citrate [Citrate of Mag] 300 ml PO ONCE PRN #1 bottle 05/24/18 Lidocaine 5% [Lidoderm] 1 ea TD DAILY PRN #5 patch 05/29/18 - Allergies Allergies/Adverse Reactions: Allergies Allergy/AdvReac Type Severity Reaction Status Date / Time No Known Allergies Allergy Verified 10/08/16 15:45 Review of Systems ROS Statement: Except As Marked, All Systems Reviewed And Found Negative Constitutional: Negative for: Fever, Chills Cardiovascular: Negative for: Chest Pain Respiratory: Negative for: Shortness of Breath Gastrointestinal: Positive for: Abdominal Pain. Negative for: Nausea, Vomiting, Diarrhea, Constipation Musculoskeletal: Positive for: Back Pain (lower), Other (left hip pain) Neurological: Negative for: Weakness, Numbness (tingling) Physical Exam - Reviewed Nursing Documentation Reviewed: Yes Vital Signs Reviewed: Yes - Physical Exam Appears: Positive for: No Acute Distress Head Exam: Positive for: ATRAUMATIC, NORMAL INSPECTION, NORMOCEPHALIC Skin: Positive for: Normal Color, Warm, Dry Eye Exam: Positive for: Normal appearance, EOMI, PERRL Neck: Positive for: Normal, Painless ROM, Supple Cardiovascular/Chest: Positive for: Regular Rate, Rhythm. Negative for: Murmur Respiratory: Positive for: Normal Breath Sounds. Negative for: Respiratory Distress Gastrointestinal/Abdominal: Positive for: Normal Exam (Morbidly obese), Soft, Distended, Hernia (reducible and small umbilical). Negative for: Tenderness Back: Positive for: Normal Inspection. Negative for: L CVA Tenderness, R CVA Tenderness Extremity: Positive for: Normal ROM (upper and lower extremities), Tenderness (Left hip tenderness with limited ROM secondary to pain). Negative for: Deformity, Swelling Neurological/Psych: Positive for: Awake, Alert, Normal Tone - ECG O2 Sat by Pulse Oximetry: 97 (RA) Pulse Ox Interpretation: Normal Medical Decision Making Medical Decision Making: Time: 12:18 Initial Impression: Chronic back pain and hip pain Initial Plan: --Hip Min 2V w/ Pelvis LT [RAD] --Reevaluation 12:30 -Upon review of previous visits, patient had an abdominal x-ray done x4 days ago that was normal. 12:40 -[place] [employer] reviewed. Patient was prescribed #90 Oxycodone tabs on 05/18/18. RN attempted to administer Lidocaine patch, verbally attacked RN with sexually explicit language, demanded narcotic medication, when told none would be given, ambulated out of ED without difficulty escorted by security. Scribe Attestation: Documented by Kar Joyce, acting as a scribe for Roxy Renee MD Provider Scribe Attestation: All medical record entries made by the Scribe were at my direction and personally dictated by me. I have reviewed the chart and agree that the record accurately reflects my personal performance of the history, physical exam, medical decision making, and the department course for this patient. I have also personally directed, reviewed, and agree with the discharge instructions and disposition. Disposition - Clinical Impression Clinical Impression: Hip injury - Disposition Referrals: Yakelin Shea MD [Non-Staff] - Disposition: Routine/Home Disposition Time: 14:09 Condition: STABLE Prescriptions: Lidocaine 5% [Lidoderm] 1 ea TD DAILY PRN #5 patch PRN Reason: Pain, Moderate (4-7) Instructions: Hip Pain Forms: [employer] (Frisian)
--- NOTE | 2018-05-29 13:13 | RAD ---
PROCEDURE: Left Hip X-ray Radiographs. HISTORY: Fall COMPARISON: None. FINDINGS: BONES: Frontal view of the pelvis and frontal and frogleg views of the left hip were performed. No fracture is seen. No hip dislocation is noted. Trochanters are intact. Visualized pubic rami and symphysis are unremarkable. Right hip is within normal limits. No sacroiliac joint widening is seen. No femoral head flattening is identified. Proximal femur is also unremarkable. JOINTS: Normal. SOFT TISSUES: Normal. OTHER FINDINGS: None. IMPRESSION: No fracture.
[2018-05-29 14:38] VITALS: BP 134/87; PULSE 90; RESP 20; TEMP 98.1
[2018-06-01 15:26] VITALS: O2SAT 97
== END 2018-05-29 14:55 | disposition home or self-care (01) ==
LOC: H.ER 12:07
DX: M54.5 Low back pain (principal); G89.29 Other chronic pain; S79.912A Unspecified injury of left hip, initial encounter; Z86.59 Personal history of other mental and behavioral disorders; J45.909 Unspecified asthma, uncomplicated; M81.0 Age-related osteoporosis without current pathological fracture; R56.9 Unspecified convulsions